=== PATIENT | female | born 1945 | race Hispanic/Latino ===

== ENCOUNTER 2017-05-15 05:51 | Observation (INO) | payer MEDICARE ==
--- NOTE | 2017-05-13 15:14 | Diagnostic Imaging Report ---
EXAMINATION: CHEST 2 VIEWS INDICATION: \S\PRE-OP VAG HYST \S\[id number] \S\1445 COMPARISON: None FINDINGS: PA and lateral views TUBES and LINES: None. LUNGS: Lungs are well inflated. Lungs are clear. There is no evidence of pneumonia or pulmonary edema. PLEURA: No pleural effusion or pneumothorax. HEART AND MEDIASTINUM: The cardiomediastinal silhouette is unremarkable. BONES AND SOFT TISSUES: No acute osseous lesion. Rightward convex curvature of the thoracic spine. Soft tissues are unremarkable. UPPER ABDOMEN: No free air under the diaphragm. Cholecystectomy clips. IMPRESSION: No acute thoracic abnormality. Signed by: DR. Jeff Hammond MD on 05/13/2017 3:11 PM
[2017-05-13 15:30] LABS: BASOPHILS # (AUTO) 0.1 (0.0-0.1); BASOPHILS % 0.8 % (0.0-1.0); EOSINOPHILS # (AUTO) 0.2 (0.0-0.4); EOSINOPHILS % 3.8 % (0.0-6.0); HEMATOCRIT 37.5 % (34.2-44.1); HEMOGLOBIN 12.2 g/dL (12.0-16.0); LYMPHOCYTES # (AUTO) 1.1 (1.0-3.2); MEAN CORPUSCULAR HEMOGLOBIN 27.7 pg (28-32); MEAN CORPUSCULAR HGB CONC 32.5 g/dL (31-35); MONOCYTES # (AUTO) 0.6 (0.2-0.8); MONOCYTES % 9.5 % (4.4-11.3); NEUTROPHILS # (AUTO) 4.3 (2.1-6.9); NEUTROPHILS % 67.6 % (38.7-80.0); PLATELET COUNT 151 x10e3/uL (140-360); RED BLOOD COUNT 4.41 x10e6/uL (3.6-5.1); RED CELL DISTRIBUTION WIDTH 13.5 % (11.7-14.4)
[2017-05-13 16:00] LABS: ANION GAP 9.6 mmol/L (8-16); CALCIUM 9.2 mg/dL (8.4-10.2); CREATININE, SERUM 1.15 mg/dL (0.57-1.11); POTASSIUM 3.6 mmol/L (3.5-5.1)
[~2017-05-15] VITALS: Ht 162.6 cm; Wt 69.4 kg
[~2017-05-15 05:51] MED LIST: AMIODARONE HCL200 MG PO; CALCIUM CARBON500 MG PO; CIPRO500 MG PO; CIPROFLOXACIN250 MG PO; DORZOLAMIDE HCL10 ML OU; LATANOPROST2.5 ML OU; LEVAQUIN250 MG PO; METOPROLOL SUCC25 MG PO; POTASSIUM CHLO10 ME1 PO; VITAMIN D31000 UNI2 PO; XARELTO10 MG PO; XARELTO20 MG PO; ZOCOR20 MG PO; [UNRECOGNIZED DRUG - OTHER]; potassium citrate
[2017-05-15 06:21] LABS: ALBUMIN 3.9 g/dL (3.5-5.0); ALBUMIN/GLOBULIN RATIO 1.3 (0.8-2.0)
[2017-05-15] MEDS ORDERED: CEFAZOLIN SOD 2 GM/D5W 50ML 0 ML IV ONE (06:30)
[2017-05-15] MEDS ORDERED: CLINDAMYCIN 300MG 50 ML IV ONE (06:30)
[2017-05-15] MEDS ORDERED: CEFAZOLIN SOD 2 GM/D5W 50ML 50 ML IV ONE (06:35)
[2017-05-15] MEDS ORDERED: BUPIVACAINE HCL 0.5% INJ 30 ML VIAL INJ ONE (06:50)
[2017-05-15] MEDS ORDERED: BUPIVACAINE 0.25% 30ML SDV INJ ONE (06:50)
[2017-05-15] MEDS ORDERED: METHYLENE BLUE 1% INJ 10 ML VIAL INJ ONE (06:50)
[2017-05-15] MEDS ORDERED: BACITRACIN 50,000 UNIT VIAL ONE (06:50)
[2017-05-15] MEDS: GENTAMICIN 80MG/NS 100 ML 200 ML IV ONE (06:58)
[2017-05-15] MEDS: CEFOXITIN 1GM/ DEXTROSE 50ML 100 ML IV ONE (06:58)
[2017-05-15] MEDS ORDERED: TYLENOL (07:07)
[2017-05-15] MEDS ORDERED: IOPAMIDOL 610MG/1ML 300 MG/ML VIAL IV ONE (07:24)
[2017-05-15] MEDS ORDERED: LIDOCAINE 1% W/EPINEPHRINE 20 ML VIAL ONE (07:56)
[2017-05-15] MEDS ORDERED: SIMETHICONE 80 MG CHEW PO PRN (11:00)
[2017-05-15] MEDS ORDERED: PROMETHAZINE HCL (IM) 25 MG/ML VIAL IV PRN (11:00)
[2017-05-15] MEDS ORDERED: METOCLOPRAMIDE HCL 10 MG/2ML VIAL ONE (11:14)
[2017-05-15] MEDS ORDERED: PROMETHAZINE 12.5MG/ NACL 0.9% 50 ML IV PRN (11:30)
--- NOTE | 2017-05-15 11:43 | Diagnostic Imaging Report ---
PROCEDURE:X-RAY ABDOMEN - KUB COMPARISON:[facility], CT, CT ABDOMEN/PELVIS WO, 02/04/2017, 16:55. INDICATIONS:POST OPERATIVE DRAINAGE FILM FINDINGS: There is a non-obstructed bowel-gas pattern. Contrast is noted in bilateral renal collecting system/pelvis and urinary bladder. Questionable dilation of the right upper calyx, which is similar in appearance to prior CT dated 02/04/2017. Ill-defined radiopaque densities projecting in the lateral inferior aspect of the left renal shadow likely represent the previously visualized calcifications associated to lobulated cyst on prior CT. 3 mm round radiopaque density projecting in the right sacrum may represent the previously visualized distal right ureteral calculus. No other radiopaque densities project over the expected course of ureters. Stable pelvic phleboliths. No acute bony abnormalities. Degenerative changes in the lower lumbosacral spine. CONCLUSION: 1. 3 mm radiopaque density projecting in the right sacrum may represent the previously visualized distal right ureteral calculus. 2. Contrast in bilateral renal collecting systems/pelvis and urinary bladder. Questionable dilation of the right upper calyx which is similar in appearance to CT dated 02/04/2017. 3. Radiopaque densities projecting in the lateral inferior aspect of the left renal shadow likely correspond to previously. Visualized calcifications associated to lobulated cyst on CT. Patrick Ji M.D. Dictated by: Patrick Ji M.D. on 05/15/2017 at 11:52 Electronically approved by: Patrick Ji M.D. on 05/15/2017 at 11:52
[2017-05-15] MEDS: ONDANSETRON HCL INJ 2 MG/ML VIAL IV PRN (12:57)
[2017-05-15] MEDS: MORPHINE SULFATE 2 MG/ML SYR IV PRN ×2 (12:58→19:21)
[2017-05-15 14:02] VITALS: BP 122/56
--- NOTE | 2017-05-15 15:42 | Operative Report ---
DATE OF PROCEDURE: May 15, 2017 CAR BODY INSPECTOR: Korina Gary, licensed rn surgical PREOPERATIVE DIAGNOSIS: Uterovaginal prolapse. POSTOPERATIVE DIAGNOSIS: Uterovaginal prolapse. PROCEDURE PERFORMED: Transvaginal hysterectomy. ANESTHESIA: General. ESTIMATED BLOOD LOSS: 100 mL. COMPLICATIONS: None. FINDINGS: A grade 3 uterine prolapse and cystocele. INDICATIONS: The patient is a 72-year-old, 3, para 3, with pelvic organ prolapse desiring definitive surgical management. PROCEDURE NOTE: The risks, benefits, indications, and alternatives of the procedure were reviewed with the patient, and informed consent was obtained. The patient was taken to the OR where general anesthesia was obtained. She was placed in the dorsal lithotomy position in Timothy stirrups, and prepped and draped in the typical sterile fashion. A time out was done. A weighted speculum was placed in the vagina, and the cervix was grasped with 2 single-tooth tenaculum. A solution of Marcaine with epinephrine was injected circumferentially around the cervix. The cervix was circumcised, and the bladder was dissected off with sharp dissection. The posterior cul-de-sac was sharply entered, and a long weighted gooseneck retractor was placed into the cul-de-sac in replacement of the standard weighted speculum. The right uterosacral ligament was then identified, clamped with a Zeppelin clamp, divided and suture ligated with 0 Vicryl. In a like fashion, the left uterosacral ligament was clamped, divided and suture ligated. The left cardinal ligament and uterine vessels were then identified, sequentially clamped, coagulated, and cut with the LigaSure device. This was followed by sequential clamping, coagulation and cutting of the cardinal ligaments and uterine vessels on the right side with the LigaSure device. The anterior cul-de-sac was sharply dissected until the vesicouterine peritoneal reflection was identified. This was entered sharply. The right utero-ovarian ligament and fallopian tube were clamped with the curved Zeppelin clamp, divided and suture ligated. This was again performed on the contralateral side. The uterus and cervix were then removed through the vagina and sent for pathology. Ovaries and tubes were visualized and were normal bilaterally. However, the left fallopian tube at the distal end was not hemostatic. The LigaSure device was used to remove the distal portion of the left fallopian tube, which was also sent for pathology. All hysterectomy pedicles were then inspected and noted to be hemostatic. The vaginal cuff was closed with 0 Vicryl in a continuous fashion. The vaginal cuff was inspected and found to be hemostatic. The procedure was then handed off to Dr. Rashard Arias, who performed pelvic prolapse repair. Please see Dr. Arias's note for remainder of the procedure. Job#: [id number] RI
[2017-05-15 15:51] LABS: BASOPHILS % 0.1 % (0.0-1.0); HEMATOCRIT 37.1 % (34.2-44.1); HEMOGLOBIN 12.2 g/dL (12.0-16.0); LYMPHOCYTES # (AUTO) 0.3 (1.0-3.2); LYMPHOCYTES % 3.5 % (18.0-39.1); MEAN CORPUSCULAR HEMOGLOBIN 28.1 pg (28-32); MEAN CORPUSCULAR HGB CONC 32.9 g/dL (31-35); MEAN CORPUSCULAR VOLUME 85.5 fL (81-99); MONOCYTES # (AUTO) 0.3 (0.2-0.8); MONOCYTES % 2.9 % (4.4-11.3); NEUTROPHILS % 93.2 % (38.7-80.0); PLATELET COUNT 126 x10e3/uL (140-360); RED BLOOD COUNT 4.34 x10e6/uL (3.6-5.1); RED CELL DISTRIBUTION WIDTH 13.4 % (11.7-14.4)
[2017-05-15] MEDS: CEFOXITIN 2GM/ D5W 50ML 50 ML IV SCH ×2 (16:01→21:55)
[2017-05-15 16:08] LABS: ANION GAP 11.1 mmol/L (8-16); CALCIUM 8.7 mg/dL (8.4-10.2); CREATININE, SERUM 0.99 mg/dL (0.57-1.11); POTASSIUM 4.1 mmol/L (3.5-5.1)
[2017-05-15 17:01] VITALS: BP 119/58
[2017-05-15] MEDS ORDERED: DEXAMETHASONE SOD PHOS INJ 4 MG/ML VIAL ONE (18:48)
[2017-05-15] MEDS ORDERED: ONDANSETRON HCL INJ 2 MG/ML VIAL ONE (18:48)
[2017-05-15] MEDS ORDERED: LIDOCAINE HCL 2% LOCAL INJ 5 ML SDV VIAL INJ ONE (18:48)
[2017-05-15] MEDS ORDERED: SEVOFLURANE INHAL SOLN 250 ML PEN BTL ONE (18:48)
[2017-05-15] MEDS ORDERED: ACETAMINOPHEN 1000 MG/100 ML IV ONE (18:48)
[2017-05-15] MEDS ORDERED: ROCURONIUM BROMIDE 10 MG/ML 5ML VIAL ONE (18:48)
[2017-05-15] MEDS ORDERED: PROPOFOL IV EMULSION 10 MG/ML 20 ML VIAL ONE (18:48)
[2017-05-15] MEDS: SODIUM CHLORIDE 0.45% 1,000 ML IV SCH ×2 (18:53→22:00)
[2017-05-15] MEDS ORDERED: FENTANYL CITRATE/PF 100MCG/2 ML INJ ONE (19:02)
[2017-05-15] MEDS ORDERED: MIDAZOLAM HCL 2 MG/2 ML VIAL ONE (19:02)
[2017-05-15 20:00] VITALS: BP 93/43
[2017-05-16] VITALS (7 sets, daily range): BP systolic 113–136; BP diastolic 57–68
[2017-05-16] MEDS: HYDROCODONE/APAP 5MG-325MG TAB PO PRN (01:04)
[2017-05-16] MEDS: SODIUM CHLORIDE 0.45% 1,000 ML IV SCH ×3 (02:53→20:12)
[2017-05-16] MEDS: ONDANSETRON HCL INJ 2 MG/ML VIAL IV PRN (04:06)
[2017-05-16] MEDS: CEFOXITIN 2GM/ D5W 50ML 50 ML IV SCH ×3 (05:54→21:40)
[2017-05-16 06:22] LABS: BASOPHILS % 0.3 % (0.0-1.0); EOSINOPHILS % 0.5 % (0.0-6.0); HEMATOCRIT 34.5 % (34.2-44.1); LYMPHOCYTES # (AUTO) 0.3 (1.0-3.2); MEAN CORPUSCULAR HEMOGLOBIN 27.4 pg (28-32); MEAN CORPUSCULAR HGB CONC 31.9 g/dL (31-35); MEAN CORPUSCULAR VOLUME 85.8 fL (81-99); MONOCYTES # (AUTO) 0.8 (0.2-0.8); MONOCYTES % 10.7 % (4.4-11.3); NEUTROPHILS # (AUTO) 6.5 (2.1-6.9); NEUTROPHILS % 84.1 % (38.7-80.0); PLATELET COUNT 124 x10e3/uL (140-360); RED BLOOD COUNT 4.02 x10e6/uL (3.6-5.1); RED CELL DISTRIBUTION WIDTH 13.4 % (11.7-14.4)
[2017-05-16 06:44] LABS: CALCIUM 8.4 mg/dL (8.4-10.2); CREATININE, SERUM 1.07 mg/dL (0.57-1.11)
[2017-05-16] MEDS: MORPHINE SULFATE 2 MG/ML SYR IV PRN (11:30)
[2017-05-16] MEDS: ACETAMINOPHEN 325 MG TAB PO PRN (21:40)
[2017-05-17] VITALS (7 sets, daily range): BP systolic 104–123; BP diastolic 55–59
[2017-05-17] MEDS: SODIUM CHLORIDE 0.45% 1,000 ML IV SCH ×4 (02:53→21:29)
[2017-05-17] MEDS: ACETAMINOPHEN 325 MG TAB PO PRN ×3 (05:10→21:30)
[2017-05-17] MEDS: CEFOXITIN 2GM/ D5W 50ML 50 ML IV SCH ×3 (05:50→21:29)
[2017-05-17] MEDS: DOCUSATE SODIUM 100 MG CAP PO PRN (12:35)
[2017-05-18] VITALS (7 sets, daily range): BP systolic 102–149; BP diastolic 50–66
[2017-05-18] MEDS: CEFOXITIN 2GM/ D5W 50ML 50 ML IV SCH ×2 (05:16→13:14)
--- NOTE | 2017-05-18 08:54 | Diagnostic Imaging Report ---
PROCEDURE: X-RAY CHEST, TWO VIEWS COMPARISON: 05/13/2017. INDICATIONS: PNEUMONIA FINDINGS: The lungs remain well-inflated. Minimal linear opacity in the left lung base is unchanged compatible with subsegmental atelectasis. No consolidation, pleural effusion, or pneumothorax. Stable cardiomediastinal contour with scoliotic curvature of the thoracic spine. No pulmonary edema. No acute osseous abnormality. Surgical clips project over the right upper quadrant of the abdomen compatible with prior cholecystectomy. CONCLUSION: No acute cardiopulmonary abnormality. Dictated by: Дмитрий Mendez M.D. on 05/18/2017 at 9:03 Electronically approved by: Дмитрий Mendez M.D. on 05/18/2017 at 9:03
[2017-05-18] MEDS: ACETAMINOPHEN 325 MG TAB PO PRN (09:11)
[2017-05-18] MEDS: SODIUM CHLORIDE 0.45% 1,000 ML IV SCH ×2 (10:53→15:45)
[2017-05-18] MEDS: HYDROCODONE/APAP 5MG-325MG TAB PO PRN ×2 (13:54→18:23)
[2017-05-18] MEDS ORDERED: TYLENOL WITH C1 EACH PO (17:28)
[2017-05-18] MEDS ORDERED: LEVAQUIN250 MG PO (17:28)
[2017-05-18] MEDS: DOCUSATE SODIUM 100 MG CAP PO PRN (18:23)
[2017-06-19] MEDS ORDERED: QUESTRAN PACKET4 GM PO (06:59)
[2017-06-19] MEDS ORDERED: FLAGYL500 MG PO (06:59)
== END 2017-05-18 19:48 | disposition home or self-care (01) ==
LOC: OR 05:51 → MED/SURG 11:23
PROVIDERS: ADMIT Obstetrics & Gynecology Obstetrics; ATTEND Obstetrics & Gynecology Obstetrics
DX: N81.3 Complete uterovaginal prolapse (principal); I10 Essential (primary) hypertension; I48.91 Unspecified atrial fibrillation; H40.9 Unspecified glaucoma; Z01.810 Encounter for preprocedural cardiovascular examination; Z01.812 Encounter for preprocedural laboratory examination; Z01.818 Encounter for other preprocedural examination
CPT/HCPCS: 36415 ×3; 58262; 71046 ×2; 74018; 74420; 80048 ×2; 80053; 85025 ×3; 88307; 88342; 93005; 96361; C1762; G0378 ×4; J0694 ×4; J1100; J1580; J2001; J2250; J2270 ×2; J2405 ×2; J2765; Q9967

== ENCOUNTER 2017-05-27 11:07 | Inpatient (IN) | payer MEDICARE ==
[~2017-05-27] VITALS: Ht 162.6 cm; Wt 73.5 kg
[~2017-05-27 11:07] MED LIST changes: +TYLENOL; +TYLENOL WITH C1 EACH PO
--- OUTSIDE RECORDS SUMMARY | 2017-05-27 11:10 | XMS REPORT | Clinical Summary ---
Author Author [facility]ATH[facility]INE [facility] Address Unknown Phone Unavailable Care Team Providers Care [place] Name Role Phone PCP Unavailable Allergies No Known Allergies Current Medications Prescription Sig. Disp. Refills Start End Date Status Date amoxicillin-clavulanate Take 1 tablet by mouth 20 tablet 0 05/17/19 05/27/19 (AUGMENTIN) 875-125 mg every 12 (twelve) hours 17 17 per tablet for 10 days. Active Problems Not on file Social History Tobacco Use Types Packs/Day Years Used Date Never Smoker Alcohol Use Drinks/Week oz/Week Comments No Sex Assigned at Date Recorded Not on file Last Filed Vital Signs Not on file Plan of Treatment Not on file Results Not on fileafter 05/26/2016
--- OUTSIDE RECORDS SUMMARY | 2017-05-27 11:10 | XMS REPORT ---
Author Author [facility] Address Unknown Phone Unavailable Care Team Providers Care 3D Specialist Name Role Phone ANA OHARA Unavailable Unavailable KALIN LR Unavailable Unavailable Problems This patient has no known problems. Allergies, Adverse Reactions, Alerts This patient has no known allergies or adverse reactions. Medications This patient has no known medications. Results Test Description Test Time Test Comments Text Results Atomic Results Result Comments CHEST 2 VIEWS [place] [address] Patient Name: RIVAS CASANOVA MR #: [id number] : 1945 Age/Sex: 72/F Req #: [id number] Adm Physician: ANA OHARA MD Ordered by: ANA OHARA MD Report #: [id number] Location: MED/SURG Room/Bed: [facility] ____ Procedure: [id number] DX/CHEST 2 VIEWS Exam Date: 05/18/17 Exam Time: 0830 REPORT STATUS: Signed PROCEDURE: X-RAY CHEST, TWO VIEWS COMPARISON: 05/13/2017. INDICATIONS: PNEUMONIA FINDINGS: The lungs remain well-inflated. Minimal linear opacity in the left lung base is unchanged compatible with subsegmental atelectasis. No consolidation, pleural effusion, or pneumothorax. Stable cardiomediastinal contour with scoliotic curvature of the thoracic spine. No pulmonary edema. No acute osseous abnormality. Surgical clips project over the right upper quadrant of the abdomen compatible with prior cholecystectomy. CONCLUSION: No acute cardiopulmonary abnormality. Dictated by: Mike Kidd M.D. on 05/18/2017 at 9:03 Electronically approved by: Mike Kidd M.D. on 05/18/2017 at 9:03 Dictated By: MIKE KIDD MD 2 Transcribed By: ANA on 05/18/17902 COPY TO: ANA OHARA MD ABDOMEN-1VIEW (KUB) [place] [address] Patient Name: RIVAS CASANOVA MR #: [id number] : 1945 Age/Sex: 72/F Req #: [id number] Adm Physician: ANA OHARA MD Ordered by: NANDO BRANDON MD Report #: [id number] Location: MED/SURG Room/Bed: [facility] ____ Procedure: [id number] DX/ABDOMEN-1VIEW (KUB) Exam Date: 05/15/17 Exam Time: 1100 REPORT STATUS: Signed PROCEDURE: X-RAY ABDOMEN - KUB COMPARISON: [facility], CT, CT ABDOMEN/PELVIS WO, 02/04/2017, 16:55. INDICATIONS: POST OPERATIVE DRAINAGE FILM FINDINGS: There is a non-obstructed bowel-gas pattern. Contrast is noted in bilateral renal collecting system/pelvis and urinary bladder. Questionable dilation of the right upper calyx, which is similar in appearance to prior CT dated 02/04/2017. Ill-defined radiopaque densities projecting in the lateral inferior aspect of the left renal shadow likely represent the previously visualized calcifications associated to lobulated cyst on prior CT. 3 mm round radiopaque density projecting in the right sacrum may represent the previously visualized distal right ureteral calculus. No other radiopaque densities project over the expected course of ureters. Stable pelvic phleboliths. No acute bony abnormalities. Degenerative changes in the lower lumbosacral spine. CONCLUSION: 1. 3 mm radiopaque density projecting in the right sacrum may represent the previously visualized distal right ureteral calculus. 2. Contrast in bilateral renal collecting systems/pelvis and urinary bladder. Questionable dilation of the right upper calyx which is similar in appearance to CT dated 02/04/2017. 3. Radiopaque densities projecting in the lateral inferior aspect of the left renal shadow likely correspond to previously. Visualized calcifications associated to lobulated cyst on CT. Sujata Ji M.D. Dictated by: Sujata Ji M.D. on 05/15/2017 at 11:52 Electronically approved by: Sujata Ji M.D. on 05/15/2017 at 11:52 Dictated By: SUJATA JI MD 1152 Transcribed By: ANA on 05/15/17 1152 COPY TO: NANDO BRANDON MD CHEST 2 VIEWS [place] [address] Patient Name: RIVAS CASANOVA MR #: [id number] : 1945 Age/Sex: 72/F Req #: [id number] Adm Physician: Ordered by: ANA OHARA MD Report #: [id number] Location: OR Room/Bed: Procedure: [id number] DX/CHEST 2 VIEWS Exam Date: 05/13/17 Exam Time: 1445 REPORT STATUS: Signed EXAMINATION: CHEST 2 VIEWS INDICATION: COMPARISON: None FINDINGS: PA and lateral views TUBES and LINES: None. LUNGS: Lungs are well inflated. Lungs are clear. There is no evidence of pneumonia or pulmonary edema. PLEURA: No pleural effusion or pneumothorax. HEART AND MEDIASTINUM: The cardiomediastinal silhouette is unremarkable. BONES AND SOFT TISSUES: No acute osseous lesion. Rightward convex curvature of the thoracic spine. Soft tissues are unremarkable. UPPER ABDOMEN: No free air under the diaphragm. Cholecystectomy clips. IMPRESSION: No acute thoracic abnormality. Signed by: DR. Jeff Luz MD on 05/13/2017 3: 11 PM Dictated By: JEFF LUZ MD 10 Transcribed By: KIRK on 05/13/171510 COPY TO : ANA HOARA MD CT ABDOMEN/PELVIS WO [place] [address] Patient Name: RIVAS CASANOVA MR #: [id number] : 1945 Age/Sex: 71/F Req #: [id number] Adm Physician: Ordered by: LEISA TAYLOR DEHYDRATING PRESS OPERATOR Report #: [id number] Location: ER Room/Bed: Procedure: [id number] CT/CT ABDOMEN/PELVIS WO Exam Date: 02/04/17 Exam Time: 1655 REPORT STATUS: Signed PROCEDURE: CT ABDOMEN AND PELVIS WITHOUT CONTRAST TECHNIQUE: The abdomen and pelvis were scanned utilizing a multidetector helical scanner from the diaphragm to the lesser trochanter after the oral administration of water. No IV contrast was administered per protocol. Coronal and sagittal multiplanar reformations were obtained. COMPARISON: [facility], CT, CT ABDOMEN/ PELVIS WO, 10/22/2014, 23:14. INDICATIONS: LEFT FLANK PAIN, STONE FINDINGS: ABSENCE OF INTRAVENOUS CONTRAST DECREASES SENSITIVITY FOR DETECTION OF FOCAL LESIONS AND VASCULAR PATHOLOGY. LOWER THORAX: Stable linear scarring in the lingula and medial right middle lobe. Stable mild cardiomegaly. Atherosclerotic calcification of a aortic valves, coronary arteries. HEPATOBILIARY: No focal hepatic lesions. No biliary ductal dilatation. Cholecystectomy clips. SPLEEN: No splenomegaly. PANCREAS: No focal masses or ductal dilatation. ADRENALS: No adrenal nodules. KIDNEYS/URETERS: Stable 4-5 mm radiopaque density adjacent to the mid to distal right ureter (series 3, image 118), felt to represent a phlebolith. 3-4 mm nonobstructing calculus in the inferior pole of the left kidney (series 3, image 79), which is relatively stable. No definite right renal or any ureteral calculi are identified. Improved mild right hydronephrosis. Stable mild left pelvocaliectasis/hydronephrosis. No interval change in dystrophic calcifications in the peripheral aspect of the left kidney near the interpolar region, with associated scarring. Stable marked left scarring in left cortical thinning. Stable simple cysts in the inferior pole. PELVIC ORGANS/BLADDER: Bladder is decompressed and grossly unremarkable. No bladder calculi. Uterus is unremarkable. No adnexal masses. PERITONEUM / RETROPERITONEUM: No free air or fluid. LYMPH NODES: No adenopathy. VESSELS: Atherosclerotic calcification of the abdominal aorta GI TRACT: No bowel dilation or evidence of obstruction. BONES AND SOFT TISSUES: No acute bony abnormalities. Multilevel degenerative disc disease in the lumbosacral spine, with mild levoscoliosis. IMPRESSION: 1. no ureteral calculi. 2. Stable 3-4 mm nonobstructing calculus in the inferior pole of the left kidney. 3. Improved mild right hydronephrosis. Stable mild left pelvocaliectasis/hydronephrosis. Sujata Ji M.D. Dictated by: Sujata Ji M.D. on 02/04/2017 at 17:54 Electronically approved by: Sujata Ji M.D. on 02/04/2017 at 17:54 Dictated By: SUJATA JI MD 53 Transcribed By: ANA on 02/04/171753 COPY TO: LEISA TAYLOR DEHYDRATING PRESS OPERATOR CHEST 2 VIEWS [facility] [address] [place] [address] Patient Name: RIVAS CASANOVA MR #: [id number] : 1945 Age/Sex: 71/F Req #: [id number] Adm Physician: Ordered by: LEISA TAYLOR NP Report #: [id number] Location: ER Room/Bed: Procedure: [id number] DX/CHEST 2 VIEWS Exam Date: 02/04/17 Exam Time: 1500 REPORT STATUS: Signed PROCEDURE: Frontal and lateral views of the chest. COMPARISON: [facility], DX, CHEST SINGLE (PORTABLE ), 06/11/2016, 11:17. INDICATIONS: FEVER, CHILLS FINDINGS: Lines/tubes: None. Lungs: The lungs are well inflated and clear. There is no evidence of pneumonia or pulmonary edema. Pleura: There is no pleural effusion or pneumothorax. Heart and mediastinum: The heart and the mediastinum are normal. Bones: No acute bony abnormality. Stable rightward curvature of the thoracic and upper lumbar spine IMPRESSION: 1. No acute cardiopulmonary abnormalities. Sujata Ji M.D. Dictated by: Sujata Ji M.D. on 02/04/2017 at 15:20 Electronically approved by: Sujata Ji M.D. on 02/04/2017 at 15:20 Dictated By: SUJATA JI MD 1520 Transcribed By: ANA on 02/04/17 1520 COPY TO: LEISA TAYLOR DEHYDRATING PRESS OPERATOR
[2017-05-27] MEDS ORDERED: SODIUM CHLORIDE 0.9% 1000ML 1,000 ML IV STA (11:17)
[2017-05-27] MEDS ORDERED: ONDANSETRON HCL INJ 2 MG/ML VIAL IV STA (11:17)
[2017-05-27] MEDS ORDERED: ACETAMINOPHEN 1000 MG/100 ML IV STA (11:17)
--- NOTE | 2017-05-27 12:06 | Diagnostic Imaging Report ---
PROCEDURE: Frontal and lateral views of the chest. COMPARISON: Chest radiograph 05/18/2017. INDICATIONS: FEVER, VOMITING FINDINGS: Lines/tubes: None. Lungs: The lungs are well inflated and clear. There is no evidence of pneumonia or pulmonary edema. Pleura: There is no pleural effusion or pneumothorax. Heart and mediastinum: The heart and the mediastinum are normal. Bones: No acute bony abnormality. Stable convex curvature of the thoracic spine to the right. Calcific densities projecting superior to the humeral heads likely reflect rotator cuff calcific tendinosis. Upper abdomen: No free air under the diaphragm. Surgical clips project over the right upper quadrant reflecting prior cholecystectomy. IMPRESSION: No acute cardiopulmonary disease. Dictated by: Jeff Hammond M.D. on 05/27/2017 at 12:15 Electronically approved by: Jeff Hammond M.D. on 05/27/2017 at 12:15
[2017-05-27 12:34] LABS: BASOPHILS # (AUTO) 0.1 (0.0-0.1); BASOPHILS % 0.2 % (0.0-1.0); HEMOGLOBIN 11.9 g/dL (12.0-16.0); LYMPHOCYTES # (AUTO) 0.4 (1.0-3.2); MEAN CORPUSCULAR HEMOGLOBIN 27.4 pg (28-32); MEAN CORPUSCULAR HGB CONC 32.2 g/dL (31-35); MEAN CORPUSCULAR VOLUME 85.3 fL (81-99); MONOCYTES # (AUTO) 1.3 (0.2-0.8); MONOCYTES % 5.7 % (4.4-11.3); NEUTROPHILS # (AUTO) 19.8 (2.1-6.9); NEUTROPHILS % 91.1 % (38.7-80.0); PLATELET COUNT 230 x10e3/uL (140-360); RED BLOOD COUNT 4.34 x10e6/uL (3.6-5.1); RED CELL DISTRIBUTION WIDTH 13.2 % (11.7-14.4)
[2017-05-27 12:51] LABS: INR 1.12; PARTIAL THROMBOPLASTIN TIME 33.6 seconds (23.8-35.5)
[2017-05-27 12:55] LABS: BILIRUBIN,URINE NEGATIVE (NEGATIVE); CLARITY,URINE CLEAR (CLEAR); COLOR,URINE YELLOW (YELLOW); KETONES,URINE TRACE (NEGATIVE); LEUKOCYTE ESTERASE ,URINE NEGATIVE (NEGATIVE); NITRITE,URINE NEGATIVE (NEGATIVE); PROTEIN,URINE DIPSTICK NEGATIVE (NEGATIVE); URINE UROBILINOGEN 0.2 mg/dL (0.2 - 1)
[2017-05-27 12:58] LABS: ALBUMIN 3.5 g/dL (3.5-5.0); CALCIUM 8.7 mg/dL (8.4-10.2); CREATININE, SERUM 1.13 mg/dL (0.57-1.11)
[2017-05-27] MEDS ORDERED: DIATRIZOATE MEGL/DIATRIZOA SOD 30 ML BTL PO ONE (13:02)
[2017-05-27 13:05] LABS: CREATINE KINASE MB 0.7 ng/mL (0.00-5.00)
[2017-05-27 13:07] LABS: BACTERIA,URINE MODERATE /HPF
[2017-05-27 13:08] LABS: EPITHELIAL CELLS,URINE FEW /LPF; MUCUS,URINE FEW (RARE); TRANSITIONAL EPI CELLS,URINE FEW
--- NOTE | 2017-05-27 14:33 | Diagnostic Imaging Report ---
PROCEDURE: CT ABDOMEN AND PELVIS WITH CONTRAST TECHNIQUE: The abdomen and pelvis were scanned utilizing a multidetector helical scanner from the diaphragm to the lesser trochanter after the IV administration of 100 cc of Isovue 370 and the oral administration of Gastroview. Coronal and sagittal multiplanar reformations were obtained. COMPARISON: Abdominal CT 02/04/2017 INDICATIONS: ABDOMINAL PAIN, VOMITING FINDINGS: LOWER THORAX: Stable medial right middle lobe linear scarring. Stable mild cardiomegaly. HEPATOBILIARY: Diffuse hypoattenuation of the liver compatible with steatosis. No focal hepatic lesions. No biliary ductal dilatation. Cholecystectomy clips. SPLEEN: No splenomegaly. PANCREAS: No ductal dilatation. A low attenuating 0.7 cm lesion in the pancreatic body (axial image 22, sagittal image 65) is not well seen on previous non-contrast CT. ADRENALS: No adrenal nodules. KIDNEYS/URETERS: Stable bilateral mild hydronephrosis. Stable interpolar and inferior pole 3-4 mm nonobstructing calculi in the mid and lower pole Of the left kidney. No definite right renal or any ureteral calculi are identified. A lobulated 2.4 cm lesion in the interpolar region of the left kidney (coronal image 53) contains calcifications and is of indeterminate density (portions measuring up to 32 HU). The contours appear similar to 04/01/2014 although direct comparison is limited secondary to previous non-contrast study. A oval 2.9 cm lesion in the superior pole of the right kidney is indeterminate (series 2 image 28) measuring 56 HU. Additional hypodensities in both kidneys are too small to characterize. Stable marked left scarring in left cortical thinning. PELVIC ORGANS/BLADDER: Bladder is unremarkable. No bladder calculi. Uterus is not visualized. No adnexal masses. PERITONEUM / RETROPERITONEUM: No free air or fluid. LYMPH NODES: No adenopathy. VESSELS: Atherosclerotic calcification of the abdominal aorta. 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 GI TRACT: No bowel dilation or evidence of obstruction. 1.3 cm duodenal diverticulum along the third segment. Minimal diffuse colonic wall thickening and fluid within the colon. Appendix is normal. BONES AND SOFT TISSUES: No acute bony abnormalities. Multilevel degenerative disc disease in the lumbosacral spine, with mild levoscoliosis. A supraumbilical hernia contains two knuckles of small bowel without evidence of strangulation or obstruction. Hernia sac measures approximately 6.3 x 3.5 x 9 cm (SI x AP x TV) with abdominal wall defect measuring approximately 3.3 x 4.7 cm (SI x TV). IMPRESSION: 1. Diffuse minimal colonic wall thickening and fluid within the colon may reflect colitis/diarrhea. 2. Indeterminate renal lesions. Recommend further evaluation with abdominal MRI without and with contrast. 3. Stable left nephrolithiasis. Stable mild bilateral hydronephrosis. 4. Supraumbilical hernia contains small bowel without evidence of strangulation or obstruction. 5. Low attenuating lesion in the pancreas may represent an IPMN. This can be evaluated at the time of MRI (with addition of MRCP sequences). Dictated by: Jeff Hammond M.D. on 05/27/2017 at 14:42 Electronically approved by: Jeff Hammond M.D. on 05/27/2017 at 14:42
[2017-05-27] MEDS ORDERED: METRONIDAZOLE 500MG/NS 100ML 100 ML IV STA (14:38)
[2017-05-27] MEDS ORDERED: CIPROFLOXACIN 400 MG/D5W 200ML 200 ML IV STA (14:38)
[2017-05-27] MEDS ORDERED: MORPHINE SULFATE 2 MG/ML SYR IV PRN (14:45)
[2017-05-27] MEDS ORDERED: ACETAMINOPHEN 325 MG TAB PO PRN (14:45)
--- OUTSIDE RECORDS SUMMARY | 2017-05-27 17:21 | XMS REPORT | Clinical Summary ---
Author Author KATHERINE [facility] Address Unknown Phone Unavailable Care Team Providers Care Clinical Ob Name Role Phone PCP Unavailable Allergies No [...]
[2017-05-27] MEDS ORDERED: IOPAMIDOL 370 MG/ML 200 ML INFUS..BTL INJ ONE (18:50)
[2017-05-27] MEDS ORDERED: SODIUM CHLORIDE 0.9% 50ML 50 ML ONE (18:50)
[2017-05-27] MEDS: ONDANSETRON HCL INJ 2 MG/ML VIAL IV PRN (19:22)
[2017-05-27] MEDS ORDERED: ACETAMINOPHEN 1000 MG/100 ML 100 ML IV ONE (19:39)
[2017-05-27] MEDS ORDERED: ACETAMINOPHEN 1000 MG/100 ML IV PRN (19:45)
[2017-05-27] MEDS: SODIUM CHLORIDE 0.9% 1000ML 1,000 ML IV SCH (20:00)
[2017-05-27 20:30] VITALS: BP 108/52
[2017-05-27 21:00] VITALS: BP 108/52
[2017-05-27] MEDS: PROMETHAZINE 12.5MG/ NACL 0.9% 12.5 MG/50 ML BAG IV PRN (22:23)
[2017-05-27 22:44] VITALS: BP 108/52
[2017-05-28] VITALS (7 sets, daily range): BP systolic 92–136; BP diastolic 51–78
[2017-05-28] MEDS: METRONIDAZOLE 500MG/NS 100ML 100 ML IV SCH ×2 (03:33→14:11)
[2017-05-28] MEDS: CIPROFLOXACIN 400 MG/D5W 200ML 200 ML IV SCH ×2 (04:09→17:35)
[2017-05-28] MEDS: SODIUM CHLORIDE 0.9% 1000ML 1,000 ML IV SCH ×2 (04:10→20:47)
[2017-05-28] MEDS: PROMETHAZINE 12.5MG/ NACL 0.9% 12.5 MG/50 ML BAG IV PRN (04:16)
[2017-05-28 06:01] LABS: BASOPHILS # (AUTO) 0.1 (0.0-0.1); BASOPHILS % 0.3 % (0.0-1.0); HEMATOCRIT 38.1 % (34.2-44.1); HEMOGLOBIN 12.1 g/dL (12.0-16.0); LYMPHOCYTES # (AUTO) 0.7 (1.0-3.2); LYMPHOCYTES % 3.5 % (18.0-39.1); MEAN CORPUSCULAR HEMOGLOBIN 27.6 pg (28-32); MEAN CORPUSCULAR HGB CONC 31.8 g/dL (31-35); MEAN CORPUSCULAR VOLUME 86.8 fL (81-99); MONOCYTES # (AUTO) 1.7 (0.2-0.8); MONOCYTES % 8.3 % (4.4-11.3); NEUTROPHILS # (AUTO) 17.2 (2.1-6.9); NEUTROPHILS % 83.6 % (38.7-80.0); PLATELET COUNT 255 x10e3/uL (140-360); RED BLOOD COUNT 4.39 x10e6/uL (3.6-5.1); RED CELL DISTRIBUTION WIDTH 13.7 % (11.7-14.4)
[2017-05-28 06:24] LABS: ALBUMIN 2.9 g/dL (3.5-5.0); ALBUMIN/GLOBULIN RATIO 0.9 (0.8-2.0); ANION GAP 15.7 mmol/L (8-16); CALCIUM 8.2 mg/dL (8.4-10.2); CREATININE, SERUM 1.26 mg/dL (0.57-1.11); POTASSIUM 3.7 mmol/L (3.5-5.1)
[2017-05-28 06:43] LABS: BAND NEUTROPHILS % (MANUAL) 13 %; LYMPHOCYTES % (MANUAL) 3 % (19-48); MONOCYTES % (MANUAL) 12 % (3.4-9.0); NEUTROPHILS % (MANUAL) 72 % (40-74)
[2017-05-28 06:44] LABS: PLATELET ESTIMATE ADEQUATE; PLATELET MORPHOLOGY COMMENT NORMAL; RBC MORPHOLOGY COMMENT NORMAL
[2017-05-28] MEDS: ONDANSETRON HCL INJ 2 MG/ML VIAL IV PRN (07:12)
[2017-05-28] MEDS ORDERED: PROMETHAZINE 12.5MG/ NACL 0.9% 12.5 MG/50 ML BAG IV PRN (07:15)
--- NOTE | 2017-05-28 07:55 | History and Physical ---
ADDENDUM The patient also has chronic kidney disease, stage 3. Cardiorenal function appears at baseline. Job#: [id number] RI
[2017-05-28] MEDS: RIVAROXABAN 10 MG TABLET PO SCH (09:00)
[2017-05-28] MEDS: METOPROLOL SUCCINATE 25 MG TAB XL PO SCH ×2 (09:00→17:35)
[2017-05-28] MEDS: OYST-CAL-D 500MG TABLET PO SCH ×4 (11:12→21:00)
[2017-05-28] MEDS: AMIODARONE HCL 200 MG TAB PO SCH (11:12)
--- NOTE | 2017-05-28 11:37 | History and Physical ---
PRIMARY CARE PHYSICIAN: Dr. Harper CHIEF COMPLAINT: Nausea, vomiting, diarrhea, and fever. HISTORY OF PRESENT ILLNESS: This is a 72-year-old woman with a history of atrial fibrillation, now developing nausea and vomiting, as well as diarrhea for the past few days. She has a temperature as high as 100 at home. Therefore, she came to the hospital. Here, she was found to have acute colitis. She was admitted for further evaluation and management. Denies any real abdominal pain. Her last colonoscopy was about 5 years ago. She does not recall the physician nor the findings. PAST MEDICAL HISTORY: Hypertension, hyperlipidemia, GERD, atrial fibrillation. PAST SURGICAL HISTORY: Hysterectomy and bladder lift. ALLERGIES: PER ELECTRONIC MEDICAL RECORD. FAMILY HISTORY/SOCIAL HISTORY: Patient is . She has 3 children. No alcohol, illitis or cigarettes. MEDICATIONS: Per electronic medical records. REVIEW OF SYSTEMS: Denies any dizziness or chest pain. PHYSICAL EXAMINATION VITAL SIGNS: Have been reviewed. GENERAL: A tired-appearing woman resting in bed. HEENT: Anicteric. Pupils respond to light. No oral lesions. The patient is spitting up mucus during the exam. CARDIOVASCULAR: Normal S1 and S2. She has irregular heart rate. She has a 3/6 systolic murmur. LUNGS: Moderate breath sounds. ABDOMEN: Soft and nondistended. Mild discomfort in the midabdomen. EXTREMITIES: No edema or calf tenderness. NEUROLOGICAL: Alert and oriented times 3. Moving all extremities. SKIN: Dry. PSYCHIATRIC: Flat affect. LABS: Reviewed. MEDICATIONS: Reviewed. ASSESSMENT AND PLAN: This is a 72-year-old woman with: 1. Severe sepsis: Will continue on IV fluids, Flagyl, ciprofloxacin, and follow up cultures. 2. Urinary tract infection: Continue Cipro and follow up cultures. 3. Bilateral hydronephrosis: Appears to be chronic, stable and mild. 4. Acute colitis: Antibiotics as described above. 5. Intractable nausea and vomiting: Zofran not very effective. Will add Phenergan. 6. Atrial fibrillation: Resume home dose of amiodarone and Xarelto. 7. Hyperlipidemia: Continue statin. 8. Hypertension: Continue beta vishnu. 9. Low attenuation lesion in the pancreas/indeterminate renal lesions: Follow up imaging outpatient. 10. Prophylaxis: Will use Pepcid while the patient is on anticoagulant. 11. Disposition: Control nausea. Continue antibiotics. Follow up cultures. Job#: [id number] RI
[2017-05-28] MEDS: DORZOLAMIDE HCL (OPTH) 10 ML BOTTLE OP SCH (20:49)
[2017-05-28] MEDS: LATANOPROST(OPTH) 2.5 ML BTL OU SCH (20:50)
[2017-05-28] MEDS: SIMVASTATIN 20 MG TAB PO SCH (20:50)
[2017-05-29] VITALS (8 sets, daily range): BP systolic 94–148; BP diastolic 46–66
[2017-05-29] MEDS: METRONIDAZOLE 500MG/NS 100ML 100 ML IV SCH ×2 (02:04→15:31)
[2017-05-29] MEDS: CIPROFLOXACIN 400 MG/D5W 200ML 200 ML IV SCH ×2 (03:20→16:38)
[2017-05-29] MEDS: SODIUM CHLORIDE 0.9% 1000ML 1,000 ML IV SCH ×2 (04:39→20:55)
[2017-05-29 06:12] LABS: BASOPHILS % 0.3 % (0.0-1.0); EOSINOPHILS # (AUTO) 0.1 (0.0-0.4); EOSINOPHILS % 0.3 % (0.0-6.0); LYMPHOCYTES # (AUTO) 0.8 (1.0-3.2); LYMPHOCYTES % 5.4 % (18.0-39.1); MEAN CORPUSCULAR HEMOGLOBIN 27.5 pg (28-32); MEAN CORPUSCULAR HGB CONC 32.3 g/dL (31-35); MEAN CORPUSCULAR VOLUME 85.2 fL (81-99); MONOCYTES % 6.6 % (4.4-11.3); NEUTROPHILS % 82.7 % (38.7-80.0); PLATELET COUNT 234 x10e3/uL (140-360); RED BLOOD COUNT 3.64 x10e6/uL (3.6-5.1); RED CELL DISTRIBUTION WIDTH 13.9 % (11.7-14.4)
[2017-05-29 06:33] LABS: ANION GAP 12.3 mmol/L (8-16); CALCIUM 7.7 mg/dL (8.4-10.2); CREATININE, SERUM 1.2 mg/dL (0.57-1.11); POTASSIUM 3.3 mmol/L (3.5-5.1)
[2017-05-29] MEDS: RIVAROXABAN 10 MG TABLET PO SCH (09:00)
--- NOTE | 2017-05-29 09:09 | Progress Note ---
DATE: May 29, 2017 TIME: 6:40 a.m. OVERNIGHT: Some nausea. REVIEW OF SYSTEMS: Denies any dizziness. PHYSICAL EXAMINATION VITAL SIGNS: Reviewed. GENERAL: A tired-appearing woman resting in bed. HEENT: Anicteric. CARDIOVASCULAR: Normal S1 and S2. LUNGS: Moderate breath sounds. ABDOMEN: Soft, nontender and nondistended. EXTREMITIES: No edema or calf tenderness. NEUROLOGICAL: Alert and oriented times 3. Moving all extremities. SKIN: Dry. PSYCHIATRIC: Flat affect. LABS: Reviewed. MEDICATIONS: Reviewed. ASSESSMENT: A 72-year-old woman with: 1. Severe sepsis. 2. Urinary tract infection. 3. Bilateral hydronephrosis. 4. Acute colitis. 5. Intractable nausea and vomiting. 6. Atrial fibrillation. 7. Hyperlipidemia/hypertension. 8. Low attenuation lesion in the pancreas/indeterminate renal lesion. 9. Chronic kidney disease, stage 3. 10. C. diff positive colitis. PLAN 1. Continue IV fluids. 2. Continue antiemetics. 3. Consider Reglan. 4. Continue IV antibiotics. 5. Continue atrial fibrillation treatment with amiodarone and Xarelto. 6. Leukocytosis, improving. 7. Replace potassium. 8. C. diff testing is positive. Will use IV Flagyl. 9. Continue Xarelto. 10. Gram-negative rods in the urine. Follow up. 11. Influenza screen negative. Job#: [id number]
[2017-05-29] MEDS: DORZOLAMIDE HCL (OPTH) 10 ML BOTTLE OP SCH ×2 (09:32→16:25)
[2017-05-29] MEDS: OYST-CAL-D 500MG TABLET PO SCH ×3 (09:32→20:57)
[2017-05-29] MEDS: AMIODARONE HCL 200 MG TAB PO SCH (09:32)
[2017-05-29] MEDS: METOPROLOL SUCCINATE 25 MG TAB XL PO SCH ×3 (09:33→20:56)
[2017-05-29 09:47] LABS: BAND NEUTROPHILS % (MANUAL) 4 %; LYMPHOCYTES % (MANUAL) 8 % (19-48); METAMYELOCYTES % (MANUAL) 1 % (0-0); MONOCYTES % (MANUAL) 5 % (3.4-9.0); NEUTROPHILS % (MANUAL) 82 % (40-74); RBC MORPHOLOGY COMMENT NORMAL
[2017-05-29 09:48] LABS: ANISOCYTOSIS SLIGHT; HYPOCHROMASIA N; PLATELET ESTIMATE ADEQUATE; PLATELET MORPHOLOGY COMMENT NORMAL
[2017-05-29] MEDS: LATANOPROST(OPTH) 2.5 ML BTL OU SCH (20:55)
[2017-05-29] MEDS: SIMVASTATIN 20 MG TAB PO SCH (20:56)
[2017-05-29] MEDS ORDERED: POTASSIUM CHLORIDE 20 MEQ TAB CR PO STA (21:52)
[2017-05-30] VITALS (7 sets, daily range): BP systolic 104–150; BP diastolic 54–64
[2017-05-30] MEDS: METRONIDAZOLE 500MG/NS 100ML 100 ML IV SCH ×2 (03:13→15:00)
[2017-05-30] MEDS: CIPROFLOXACIN 400 MG/D5W 200ML 200 ML IV SCH ×2 (04:30→17:16)
[2017-05-30] MEDS: SODIUM CHLORIDE 0.9% 1000ML 1,000 ML IV SCH ×2 (09:25→22:45)
[2017-05-30] MEDS: OYST-CAL-D 500MG TABLET PO SCH ×3 (09:54→20:38)
[2017-05-30] MEDS: DORZOLAMIDE HCL (OPTH) 10 ML BOTTLE OP SCH ×2 (09:54→17:16)
[2017-05-30] MEDS: AMIODARONE HCL 200 MG TAB PO SCH (09:54)
[2017-05-30] MEDS: RIVAROXABAN 10 MG TABLET PO SCH (09:55)
[2017-05-30] MEDS: METOPROLOL SUCCINATE 25 MG TAB XL PO SCH ×2 (09:55→20:38)
--- NOTE | 2017-05-30 11:30 | Progress Note ---
DATE: May 30, 2017 TIME: 7:30 a.m. OVERNIGHT: No events. She has some diarrhea. REVIEW OF SYSTEMS: Denies any chest pain. PHYSICAL EXAMINATION VITAL SIGNS: Reviewed. GENERAL: A tired-appearing woman, resting in bed. HEENT: Anicteric. CARDIOVASCULAR: Normal S1 and S2. LUNGS: Moderate breath sounds. ABDOMEN: Soft and nontender. EXTREMITIES: No edema. SKIN: Dry. PSYCHIATRIC: Flat affect. LABS: Reviewed. MEDICATIONS: Reviewed. ASSESSMENT: A 72-year-old woman with: 1. Severe sepsis. 2. Urinary tract infection. 3. Bilateral hydronephrosis. 4. Acute colitis. 5. Intractable nausea and vomiting. 6. Atrial fibrillation. 7. Hyperlipidemia/hypertension. 8. Low attenuation lesion of the pancreas/indeterminate renal lesion. 9. Chronic kidney disease, stage 3. 10. C. diff positive colitis with diarrhea. 11. Pseudomonas urinary tract infection. PLAN 1. Continue IV Flagyl and IV antibiotics. 2. Continue antiemetics. 3. Nausea is improving. 4. Continue IV Reglan. 5. Continue amiodarone and Xarelto. 6. Influenza screening was negative. 7. She has pseudomonas urinary tract infection, which is quite sensitive. 8. Severe sepsis, present on admission. 9. Obtain labs tomorrow. Job#: [id number] SAK
[2017-05-30] MEDS: ONDANSETRON HCL INJ 2 MG/ML VIAL IV PRN (20:35)
[2017-05-30] MEDS: LATANOPROST(OPTH) 2.5 ML BTL OU SCH (20:38)
[2017-05-30] MEDS: SIMVASTATIN 20 MG TAB PO SCH (20:38)
[2017-05-31] VITALS: BP 120/57
[2017-05-31] MEDS: METRONIDAZOLE 500MG/NS 100ML 100 ML IV SCH ×2 (03:30→15:18)
[2017-05-31 04:00] VITALS: BP 140/91
[2017-05-31] MEDS: CIPROFLOXACIN 400 MG/D5W 200ML 200 ML IV SCH ×2 (04:30→16:00)
[2017-05-31 06:09] LABS: BASOPHILS # (AUTO) 0.1 (0.0-0.1); BASOPHILS % 0.7 % (0.0-1.0); EOSINOPHILS # (AUTO) 0.3 (0.0-0.4); EOSINOPHILS % 3.7 % (0.0-6.0); HEMATOCRIT 31.5 % (34.2-44.1); HEMOGLOBIN 10.3 g/dL (12.0-16.0); LYMPHOCYTES % 13.6 % (18.0-39.1); MEAN CORPUSCULAR HEMOGLOBIN 27.5 pg (28-32); MEAN CORPUSCULAR HGB CONC 32.7 g/dL (31-35); MONOCYTES # (AUTO) 0.7 (0.2-0.8); MONOCYTES % 10.5 % (4.4-11.3); NEUTROPHILS # (AUTO) 4.9 (2.1-6.9); NEUTROPHILS % 70.2 % (38.7-80.0); PLATELET COUNT 249 x10e3/uL (140-360); RED BLOOD COUNT 3.75 x10e6/uL (3.6-5.1)
[2017-05-31 07:04] LABS: CALCIUM 7.8 mg/dL (8.4-10.2); CREATININE, SERUM 0.93 mg/dL (0.57-1.11)
[2017-05-31] MEDS ORDERED: POTASSIUM CHLORIDE 20 MEQ TAB CR PO STA (07:29)
[2017-05-31 07:30] VITALS: BP 126/61
[2017-05-31 08:08] VITALS: BP 126/61
[2017-05-31] MEDS: OYST-CAL-D 500MG TABLET PO SCH ×3 (09:35→21:41)
[2017-05-31] MEDS: DORZOLAMIDE HCL (OPTH) 10 ML BOTTLE OP SCH ×2 (09:35→17:00)
[2017-05-31] MEDS: AMIODARONE HCL 200 MG TAB PO SCH (09:35)
[2017-05-31] MEDS: RIVAROXABAN 10 MG TABLET PO SCH (09:36)
[2017-05-31] MEDS: METOPROLOL SUCCINATE 25 MG TAB XL PO SCH ×2 (09:36→21:42)
[2017-05-31] MEDS: SODIUM CHLORIDE 0.9% 1000ML 1,000 ML IV SCH (09:49)
--- NOTE | 2017-05-31 11:50 | Progress Note ---
DATE: May 31, 2017 at 6:50 a.m. SUBJECTIVE: Overnight some improvement. REVIEW OF SYSTEMS: No chest pain. PHYSICAL EXAMINATION VITAL SIGNS: Reviewed. GENERAL: A tired-appearing woman, resting in bed. HEENT: Anicteric. CARDIOVASCULAR: Normal S1 and S2. LUNGS: Moderate breath sounds. ABDOMEN: Soft and nontender. EXTREMITIES: No edema. SKIN: Dry. PSYCHIATRIC: Flat affect. LABS: Reviewed. MEDICATIONS: Reviewed. ASSESSMENT: A 72-year-old woman with: 1. Severe sepsis. 2. Urinary tract infection. 3. Bilateral hydronephrosis. 4. Acute colitis. 5. Intractable nausea and vomiting. 6. Atrial fibrillation. 7. Hyperlipidemia/hypertension. 8. Low attenuation lesion of the pancreas/indeterminate renal lesion. 9. Chronic kidney disease, stage 3. 10. C. diff positive colitis with diarrhea. 11. Pseudomonas urinary tract infection. PLAN: 1. Continue IV Flagyl and IV antibiotics. 2. Continue antiemetics. 3. Continue supportive care. 4. Diarrhea is improving. 5. Continue amiodarone and Xarelto. 6. Discharge planning to home or assisted care facility. 7. Leukocytosis has now resolved on Flagyl. 8. Will replace the potassium. 9. Acute kidney injury is improving. Job#: [id number]
[2017-05-31 12:36] VITALS: BP 148/66
[2017-05-31 16:32] VITALS: BP 141/63
[2017-05-31] MEDS: LATANOPROST(OPTH) 2.5 ML BTL OU SCH (21:41)
[2017-05-31] MEDS: SIMVASTATIN 20 MG TAB PO SCH (21:42)
[2017-05-31] MEDS: ONDANSETRON HCL INJ 2 MG/ML VIAL IV PRN (22:54)
[2017-06-01] MEDS: SODIUM CHLORIDE 0.9% 1000ML 1,000 ML IV SCH ×3 (02:25→19:12)
[2017-06-01] MEDS: METRONIDAZOLE 500MG/NS 100ML 100 ML IV SCH ×2 (02:25→14:23)
[2017-06-01] MEDS: CIPROFLOXACIN 400 MG/D5W 200ML 200 ML IV SCH ×2 (04:30→17:02)
[2017-06-01 06:07] LABS: BASOPHILS % 0.6 % (0.0-1.0); EOSINOPHILS # (AUTO) 0.3 (0.0-0.4); HEMATOCRIT 31.2 % (34.2-44.1); HEMOGLOBIN 10.2 g/dL (12.0-16.0); LYMPHOCYTES # (AUTO) 0.9 (1.0-3.2); MEAN CORPUSCULAR HEMOGLOBIN 27.4 pg (28-32); MEAN CORPUSCULAR HGB CONC 32.7 g/dL (31-35); MEAN CORPUSCULAR VOLUME 83.9 fL (81-99); MONOCYTES # (AUTO) 0.7 (0.2-0.8); MONOCYTES % 11.4 % (4.4-11.3); NEUTROPHILS # (AUTO) 4.1 (2.1-6.9); NEUTROPHILS % 66.4 % (38.7-80.0); PLATELET COUNT 244 x10e3/uL (140-360); RED BLOOD COUNT 3.72 x10e6/uL (3.6-5.1)
[2017-06-01 06:29] LABS: ANION GAP 10.1 mmol/L (8-16); BLOOD UREA NITROGEN 10 mg/dL (7-26); BUN/CREATININE RATIO 11 (6-25); CALCIUM 7.8 mg/dL (8.4-10.2); CARBON DIOXIDE 19 mmol/L (22-29); CHLORIDE 114 mmol/L (98-107); EST GLOMERULAR FILTRATION RATE > 60 ML/MIN (60-); GLUCOSE 141 mg/dL (74-118); POTASSIUM 3.1 mmol/L (3.5-5.1); SODIUM 140 mmol/L (136-145)
[2017-06-01 07:40] LABS: EOSINOPHILS % (MANUAL) 7 % (0-7); LYMPHOCYTES % (MANUAL) 14 % (19-48); METAMYELOCYTES % (MANUAL) 1 % (0-0); MONOCYTES % (MANUAL) 6 % (3.4-9.0); NEUTROPHILS % (MANUAL) 72 % (40-74)
[2017-06-01 07:41] LABS: ANISOCYTOSIS SLIGHT; HYPOCHROMASIA SLIGHT
[2017-06-01 07:42] LABS: PLATELET ESTIMATE ADEQUATE; PLATELET MORPHOLOGY COMMENT NORMAL; POIKILOCYTOSIS SLIGHT; RBC MORPHOLOGY COMMENT NORMAL
[2017-06-01] MEDS ORDERED: POTASSIUM CHLORIDE 20 MEQ TAB CR PO NR (07:45)
[2017-06-01 08:30] VITALS: BP 144/69
[2017-06-01 09:15] VITALS: BP 145/74
[2017-06-01] MEDS: DORZOLAMIDE HCL (OPTH) 10 ML BOTTLE OP SCH ×2 (09:15→17:02)
[2017-06-01] MEDS: OYST-CAL-D 500MG TABLET PO SCH ×3 (09:15→21:20)
[2017-06-01] MEDS: RIVAROXABAN 10 MG TABLET PO SCH (09:15)
[2017-06-01] MEDS: AMIODARONE HCL 200 MG TAB PO SCH (09:15)
[2017-06-01] MEDS: METOPROLOL SUCCINATE 25 MG TAB XL PO SCH ×2 (09:15→21:21)
--- NOTE | 2017-06-01 09:28 | Progress Note ---
DATE: June 01, 2017 TIME: 6:30 a.m. SUBJECTIVE: Overnight, she had small diarrhea. REVIEW OF SYSTEMS: Denies any dizziness. PHYSICAL EXAMINATION: VITAL SIGNS: Reviewed. GENERAL: Tired-appearing woman, resting in bed. HEENT: Nonicteric. CARDIOVASCULAR: Normal S1, S2. LUNGS: Moderate breath sounds. ABDOMEN: Soft, nontender. EXTREMITIES: No edema. SKIN: Dry. PSYCHIATRIC: Flat affect. LABS: Reviewed. MEDICATIONS: Reviewed. ASSESSMENT: A 72-year-old woman with: 1. Severe sepsis. 2. Urinary tract infection. 3. Bilateral hydronephrosis. 4. Acute colitis with C. difficile. 5. Intractable nausea and vomiting. 6. Atrial fibrillation. 7. Hyperlipidemia/hypertension. 8. Low-attenuation lesion of the pancreas/indeterminate renal lesion. 9. Chronic kidney disease, stage 3. 10. Pseudomonas urinary tract infection. PLAN 1. Continue IV antibiotics. 2. Continue antiemetics. 3. Continue fluids. 4. Advance diet to soft diet. 5. Continue amiodarone and Xarelto. 6. Replace potassium. 7. Leukocytosis has resolved and acute kidney injury is resolving. 8. Continue IV Cipro. 9. Obtain labs this morning. 10. Discharge planning. Job#: [id number] [place]
[2017-06-01 12:15] VITALS: BP 145/74
[2017-06-01 16:23] VITALS: BP 133/61
[2017-06-01 20:00] VITALS: BP 128/59
[2017-06-01] MEDS: SIMVASTATIN 20 MG TAB PO SCH (21:21)
[2017-06-01] MEDS: LATANOPROST(OPTH) 2.5 ML BTL OU SCH (21:30)
[2017-06-02] VITALS (7 sets, daily range): BP systolic 108–126; BP diastolic 50–67
[2017-06-02] MEDS: METRONIDAZOLE 500MG/NS 100ML 100 ML IV SCH ×2 (03:00→14:15)
[2017-06-02] MEDS: CIPROFLOXACIN 400 MG/D5W 200ML 200 ML IV SCH ×2 (03:52→16:57)
[2017-06-02] MEDS: AMIODARONE HCL 200 MG TAB PO SCH (07:57)
[2017-06-02] MEDS: METOPROLOL SUCCINATE 25 MG TAB XL PO SCH ×2 (07:58→21:00)
[2017-06-02] MEDS: DORZOLAMIDE HCL (OPTH) 10 ML BOTTLE OP SCH ×2 (07:58→16:57)
[2017-06-02] MEDS: OYST-CAL-D 500MG TABLET PO SCH ×3 (07:58→21:00)
[2017-06-02] MEDS: RIVAROXABAN 10 MG TABLET PO SCH (07:59)
[2017-06-02 08:55] LABS: MAGNESIUM 1.3 MG/DL (1.3-2.1); POTASSIUM 3.3 mmol/L (3.5-5.1)
[2017-06-02] MEDS ORDERED: POTASSIUM CHLORIDE 20 MEQ TAB CR PO SCH (09:00)
[2017-06-02] MEDS ORDERED: POTASSIUM CHLORIDE 20 MEQ TAB CR PO ONE (10:15)
[2017-06-02] MEDS: SODIUM CHLORIDE 0.9% 1000ML 1,000 ML IV SCH (10:57)
[2017-06-02] MEDS: SIMVASTATIN 20 MG TAB PO SCH (21:00)
[2017-06-02] MEDS: LATANOPROST(OPTH) 2.5 ML BTL OU SCH (21:00)
[2017-06-03 00:59] VITALS: BP 111/59
[2017-06-03] MEDS: METRONIDAZOLE 500MG/NS 100ML 100 ML IV SCH ×2 (03:00→15:00)
[2017-06-03] MEDS: CIPROFLOXACIN 400 MG/D5W 200ML 200 ML IV SCH ×2 (04:00→16:00)
[2017-06-03] MEDS: SODIUM CHLORIDE 0.9% 1000ML 1,000 ML IV SCH (05:03)
[2017-06-03 06:48] VITALS: BP 134/67
[2017-06-03 07:00] VITALS: BP 152/60
[2017-06-03 08:00] VITALS: BP 152/60
--- NOTE | 2017-06-03 08:24 | Progress Note ---
DATE: June 02, 2017 TIME: 8 a.m. OVERNIGHT: Some diarrhea and some nausea. REVIEW OF SYSTEMS: Denies any dizziness or chest pain. PHYSICAL EXAMINATION VITAL SIGNS: Reviewed. GENERAL: A tired-appearing woman resting in bed. HEENT: Anicteric. CARDIOVASCULAR: Normal S1 and S2. LUNGS: Moderate breath sounds. ABDOMEN: Soft and nontender. EXTREMITIES: No edema. SKIN: Dry. PSYCHIATRIC: Flat affect. LABS: Reviewed. MEDICATIONS: Reviewed. ASSESSMENT: A 72-year-old woman with: 1. Severe sepsis. 2. Urinary tract infection and acute colitis with Clostridium difficile infection. 3. Bilateral hydronephrosis. 4. Intractable nausea and vomiting. 5. Atrial fibrillation. 6. Hyperlipidemia/hypertension. 7. Chronic kidney disease, stage 3. 8. Pseudomonas urinary tract infection. PLAN 1. Continue IV antibiotics. 2. Continue treatment of C. difficile. 3. Continue with diet. 4. Continue amiodarone and Xarelto. 5. Continue physical therapy. 6. Discharge planning to skilled facility. Job#: [id number] [place]
--- NOTE | 2017-06-03 08:28 | Progress Note ---
DATE: June 03, 2017 TIME: 7:45 a.m. OVERNIGHT: Some nausea. Has some diarrhea. REVIEW OF SYSTEMS: Denies any dizziness. PHYSICAL EXAMINATION VITAL SIGNS: Reviewed. GENERAL: A tired-appearing woman resting in bed. HEENT: Anicteric. CARDIOVASCULAR: Normal S1 and S2. LUNGS: Moderate breath sounds. ABDOMEN: Soft and nontender. EXTREMITIES: No edema. SKIN: Dry. PSYCHIATRIC: Flat affect. LABS: Reviewed. MEDICATIONS: Reviewed. ASSESSMENT: A 72-year-old woman with: 1. Severe sepsis/acute colitis with Clostridium difficile infection. 2. Pseudomonas urinary tract infection. 3. Bilateral hydronephrosis. 4. Intractable nausea and vomiting. 5. Atrial fibrillation. 6. Hypertension and hyperlipidemia. 7. Chronic kidney disease, stage 3. PLAN 1. Continue IV antibiotics. 2. Continue antiemetics. 3. Continue supportive care. 4. Continue Xarelto and amiodarone. 5. Leukocytosis has resolved. 6. Replace potassium. 7. Replace phosphorus. 8. Discharge planning to skilled facility. Job#: [id number] [place]
[2017-06-03] MEDS: AMIODARONE HCL 200 MG TAB PO SCH (08:45)
[2017-06-03] MEDS: OYST-CAL-D 500MG TABLET PO SCH ×2 (08:45→15:00)
[2017-06-03] MEDS: DORZOLAMIDE HCL (OPTH) 10 ML BOTTLE OP SCH ×2 (08:46→17:00)
[2017-06-03] MEDS: RIVAROXABAN 10 MG TABLET PO SCH (08:46)
[2017-06-03] MEDS: METOPROLOL SUCCINATE 25 MG TAB XL PO SCH (08:46)
[2017-06-03 12:00] VITALS: BP 109/50
[2017-06-03 16:00] VITALS: BP 109/60
[2017-06-03] MEDS ORDERED: LATANOPROST(OPTH) 2.5 ML BTL OU SCH (21:00)
== END 2017-06-03 18:46 | DRG 872 ==
LOC: ER 11:07 → ERHOLD 17:14 → MED/SURG2 20:08
PROVIDERS: ADMIT Internal Medicine; ATTEND Internal Medicine
DX: A41.9 Sepsis, unspecified organism (principal); A04.72 Enterocolitis due to Clostridium difficile, not specified as recurrent; I48.91 Unspecified atrial fibrillation; N13.6 Pyonephrosis; N18.3 Chronic kidney disease, stage 3 (moderate); R65.20 Severe sepsis without septic shock; B96.5 Pseudomonas (aeruginosa) (mallei) (pseudomallei) as the cause of diseases classified elsewhere; I12.9 Hypertensive chronic kidney disease with stage 1 through stage 4 chronic kidney disease, or unspecified chronic kidney disease; E78.5 Hyperlipidemia, unspecified; K21.9 Gastro-esophageal reflux disease without esophagitis; Z79.01 Long term (current) use of anticoagulants
CPT/HCPCS: 36415; 71046; 74177; 80048; 80053; 81001; 82550; 82553; 82948; 83605; 83690; 83735; 83880; 84100; 84132; 84484; 85025; 85610; 85730; 87070; 87086; 87186; 87205; 87400; 87493; 93005; 99284; J2405; J2550; J7030; Q9967

== ENCOUNTER 2017-06-17 13:55 | Observation (INO) | payer MEDICARE ==
[~2017-06-17] VITALS: Ht 162.6 cm; Wt 59.1 kg
--- OUTSIDE RECORDS SUMMARY | 2017-06-17 13:59 | XMS REPORT | Clinical Summary ---
Author Author KATHERINE [facility] Address Unknown Phone Unavailable Care Team Providers Care Greenskeeper Supervisor Name Role Phone PCP Unavailable Allergies No Known Allergies Current Medications Not on file Active Problems Not on file Social History Tobacco Use Types Packs/Day Years Used Date Never Smoker Alcohol Use Drinks/Week oz/Week Comments No Sex Assigned at Date Recorded Not on file Last Filed Vital Signs Not on file Plan of Treatment Not on file Results Not on fileafter 06/16/2016
--- OUTSIDE RECORDS SUMMARY | 2017-06-17 14:00 | XMS REPORT | Continuity of Care Document ---
Author Author [facility] Organization [facility] Address [address] [place] [address] Phone Unavailable Care Team Providers Care Paper Grader Name Role Phone CALLIE OCAMPO MD PCP Insurance Providers Guarantor Rivas Casanova Address [address] [place] [address] Email PT DECLINED Payer [facility] Policy Number [id number] Subscriber's Name Rivas Casanova Relationship 18 Self / Same As Patient Group Number [id number] Group Name RETIRED Effective Date 17 Payer [facility] Policy Number [id number] Subscriber's Name Rivas Casanova Relationship 18 Self / Same As Patient Effective Date 13 Advance Directives Directive Response Recorded Date/Time Does the patient have an advance directive? No 05/27/17 8:30pm If yes, is advance directive on file with [facility]? No 05/15/17 1:35pm If not on file with [facility] will patient provide a copy? No 05/15/17 1:35pm Do you have a Directive to Physician? No 05/27/17 11:52am Do you have a Medical Power of Jukebox Operator? No 05/27/17 11:52am Do you have an out of hospital Do Not Resuscitate Order? No 05/27/17 11:52am Do you have any special needs we should be aware of? No 05/27/17 11:52am Do you have a support person here with you today? Yes 05/27/17 11:52am Did patient receive Notice of Privacy Practices? Yes 05/27/17 11:52am Did patient receive patient rights and responsibilities? Yes 05/27/17 11:52am Problems Medical Problem Onset Date Status Chest pain Unknown Medications Current Home Medications Medication Dose Units Route Directions Days Qty Instructions Start Date Acetaminophen With Codeine (Tylenol With Codeine #3 Tablet) 1 Each Tablet 300 Mg Oral Every 6 Hours as needed for Pain Amiodarone Hcl 200 Mg Tablet 200 Mg Oral Daily Calcium Carbonate 500 Mg Tablet 500 Mg Oral Cholecalciferol (Vitamin D3) (Vitamin D3) 1,000 Unit Tab.chew 1,000 Mg Oral Daily Dorzolamide Hcl 10 Ml Drops Each Eye Twice A Day Latanoprost 2.5 Ml Drops Each Eye Bedtime Levofloxacin (Levaquin) 250 Mg Tablet 250 Mg Oral Daily 30 Tab Metoprolol Succinate 25 Mg Tab.er.24h 25 Mg Oral Twice A Day Potassium Chloride 10 Meq Tab.er.prt 10 Meq Oral Daily Rivaroxaban (Xarelto) 10 Mg Tablet 10 Mg Oral Daily Simvastatin (Zocor) 20 Mg Tablet 20 Mg Oral Bedtime Tylenol Past Home Medications Medication Directions Ordered Status Ciprofloxacin Hcl (Cipro) 500 Mg Tablet, 500 Mg Oral Every 12 Hours Discontinued Ciprofloxacin Hcl 250 Mg Tablet, 250 Mg Oral Twice A Day Discontinued Levofloxacin (Levaquin) 250 Mg Tablet, 250 Mg Oral Daily Discontinued Po , Discontinued Potassium Citrate , Discontinued Rivaroxaban (Xarelto) 20 Mg Tablet, 1 Tab Oral Daily Discontinued Simvastatin (Zocor) 20 Mg Tablet, 20 Mg Oral Bedtime Discontinued Social History Social History Problem Response Recorded Date/Time Onset Date Status Hx Psychiatric Problems No 05/27/2017 8:30pm Not Applicable Not Applicable Hx Eating Disorder No 05/27/2017 8:30pm Not Applicable Not Applicable Hx Substance Use Disorder No 05/27/2017 8:30pm Not Applicable Not Applicable Hx Depression No 05/27/2017 8:30pm Not Applicable Not Applicable Hx Alcohol Use No 05/27/2017 8:30pm Not Applicable Not Applicable Hx Substance Use Treatment No 05/27/2017 8:30pm Not Applicable Not Applicable Hx Physical Abuse No 05/27/2017 8:30pm Not Applicable Not Applicable Smoking Status Start Date Stop Date Never Smoker Hospital Discharge Instructions No hospital discharge instruction information available. Plan of Care Discharge Date 06/03/17 6:46pm Disposition TRANSFER CORRECTION Prescriptions See Medication Section Functional Status Query Response Date Recorded FUNCTIONAL STATUS . June 02, 2017 1:32pm Assistive Devices None May 27, 2017 8:30pm Ambulation Ability Independent May 27, 2017 8:30pm Toileting Ability Minimum Assistance June 03, 2017 5:53pm Allergies, Adverse Reactions, Alerts No known allergies. Immunizations No immunization information available. Vital Signs Acute Vital Signs Vital Response Date/Time Temperature (Fahrenheit) 98.6 degrees F (97.6 - 99.5) 06/03/2017 4:00pm Pulse Pulse Rate (adult) 66 bpm (60 - 90) 06/03/2017 4:00pm Respiratory Rate 18 bpm (12 - 24) 06/03/2017 4:00pm Blood Pressure 109/60 mm Hg 06/03/2017 4:00pm Height 5 ft 4 in 05/27/2017 11:12am Weight 162 lb 06/03/2017 6:49am Body Mass Index 27.8 kg/m^2 06/03/2017 6:49am Results Laboratory Results Test Name Result Units Flags Reference Collection Date/Time Result Date/ Time Comments Basophils % (Manual) 1 % 0-1.5 02/04/2017 6:50pm 02/04/2017 9:01pm White Blood Count 6.21 x10e3/uL 4.8-10.8 06/01/2017 5:52am 06/01/2017 6 :07am Red Blood Count 3.72 x10e6/uL 3.6-5.1 06/01/2017 5:52am 06/01/2017 6: 07am Hemoglobin 10.2 g/dL L 12.0-16.0 06/01/2017 5:52am 06/01/2017 6:07am Hematocrit 31.2 % L 34.2-44.1 06/01/2017 5:52am 06/01/2017 6:07am Mean Corpuscular Volume 83.9 fL 81-99 06/01/2017 5:06/01/2017 6: 07am Mean Corpuscular Hemoglobin 27.4 pg L 28-32 06/01/2017 5:2017 6:07am Mean Corpuscular Hemoglobin Concent 32.7 g/dL 31-35 06/01/2017 5:5206/01/2017 6:07am Red Cell Distribution Width 14.0 % 11.7-14.4 06/01/2017 5:2017 6:07am Platelet Count 244 x10e3/uL 140-360 06/01/2017 5:06/01/2017 6: 07am Neutrophils (%) (Auto) 66.4 % 38.7-80.0 06/01/2017 5:06/01/2017 6: 07am Lymphocytes (%) (Auto) 15.0 % L 18.0-39.1 06/01/2017 5:06/01/2017 6 :07am Monocytes (%) (Auto) 11.4 % H 4.4-11.3 06/01/2017 5:06/01/2017 6: 07am Eosinophils (%) (Auto) 4.0 % 0.0-6.0 06/01/2017 5:06/01/2017 6: 07am Basophils (%) (Auto) 0.6 % 0.0-1.0 06/01/2017 5:06/01/2017 6:07am IM GRANULOCYTES % 2.6 % H 0.0-1.0 06/01/2017 5:06/01/2017 6:07am Neutrophils # (Auto) 4.1 2.1-6.9 06/01/2017 5:06/01/2017 6:07am Lymphocytes # (Auto) 0.9 L 1.0-3.2 06/01/2017 5:06/01/2017 6: 07am Monocytes # (Auto) 0.7 0.2-0.8 06/01/2017 5:06/01/2017 6:07am Eosinophils # (Auto) 0.3 0.0-0.4 06/01/2017 5:06/01/2017 6:07am Basophils # (Auto) 0.0 0.0-0.1 06/01/2017 5:52am 06/01/2017 6:07am Absolute Immature Granulocyte (auto 0.16 x10e3/uL H 0-0.1 06/01/2017 5: 52am 06/01/2017 6:07am Differential Total Cells Counted 100 06/01/2017 5:52am 06/01/2017 7 :42am Neutrophils % (Manual) 72 % 40-74 06/01/2017 5:52am 06/01/2017 7:42am Band Neutrophils % 4 % 05/29/2017 5:47am 05/29/2017 9:48am Lymphocytes % (Manual) 14 % L 19-48 06/01/2017 5:52am 06/01/2017 7:42am Monocytes % (Manual) 6 % 3.4-9.0 06/01/2017 5:52am 06/01/2017 7:42am Eosinophils % (Manual) 7 % 0-7 06/01/2017 5:52am 06/01/2017 7:42am Metamyelocytes % 1 % H 0-0 06/01/2017 5:52am 06/01/2017 7:42am Platelet Estimate ADEQUATE 06/01/2017 5:52am 06/01/2017 7:42am Platelet Morphology Comment NORMAL 06/01/2017 5:52am 06/01/2017 7: 42am Hypochromasia SLIGHT 06/01/2017 5:52am 06/01/2017 7:42am Poikilocytosis SLIGHT 06/01/2017 5:52am 06/01/2017 7:42am Anisocytosis SLIGHT 06/01/2017 5:52am 06/01/2017 7:42am Red Cell Morphology Comment NORMAL 06/01/2017 5:52am 06/01/2017 7: 42am Prothrombin Time 15.0 seconds H 11.9-14.5 05/27/2017 12:15pm 05/27/2017 12:56pm Prothromb Time International Ratio 1.12 05/27/2017 12:15pm 2017 12:56pm Oral Anticoagulant Therapy INR Values: 1. Low Intensity Therapy 1.5 - 2.0 2. Moderate Intensity Therapy 2.0 - 3.0 3. High Intensity Therapy(1) 2.5 - 3.5 4. High Intensity Therapy(2) 3.0 - 4.0 5. Panic Value INR > 5.0 Activated Partial Thromboplast Time 33.6 seconds 23.8-35.5 05/27/2017 12 :15pm 05/27/2017 12:56pm Urine Color YELLOW YELLOW 05/27/2017 11:05/27/2017 12:57pm Urine Clarity CLEAR CLEAR 05/27/2017 11:05/27/2017 12:57pm Urine Specific [place] 1.015 1.010-1.025 05/27/2017 11:2017 12:57pm Urine pH 5 5 - 7 05/27/2017 11:05/27/2017 12:57pm Urine Leukocyte Esterase NEGATIVE NEGATIVE 05/27/2017 11:2017 12:57pm Urine Nitrite NEGATIVE NEGATIVE 05/27/2017 11:05/27/2017 12: 57pm Urine Protein NEGATIVE NEGATIVE 05/27/2017 11:05/27/2017 12: 57pm Urine Glucose (UA) NEGATIVE NEGATIVE 05/27/2017 11:05/27/2017 12 :57pm Urine Ketones TRACE H NEGATIVE 05/27/2017 11:05/27/2017 12:57pm Urine Urobilinogen 0.2 mg/dL 0.2 - 1 05/27/2017 11:05/27/2017 12: 57pm Urine Bilirubin NEGATIVE NEGATIVE 05/27/2017 11:05/27/2017 12: 57pm Urine Blood 2+ H NEGATIVE 05/27/2017 11:05/27/2017 12:57pm Urine WBC 11-20 /HPF H 0-5 05/27/2017 11:05/27/2017 1:08pm Urine RBC 6-10 /HPF H 0-5 05/27/2017 11:05/27/2017 1:08pm Urine Bacteria MODERATE /HPF H NONE 05/27/2017 11:05/27/2017 1: 08pm Urine Epithelial Cells FEW /LPF NONE 05/27/2017 11:05/27/2017 1: 08pm Urine Transitional Epithelial Cells FEW H NONE 05/27/2017 11: 1:08pm Urine Mucus FEW H RARE 05/27/2017 11:05/27/2017 1:08pm Sodium Level 140 mmol/L 136-145 06/01/2017 5:52am 06/01/2017 6:37am Potassium Level 3.3 mmol/L L 3.5-5.1 06/02/2017 8:20am 06/02/2017 8: 55am Chloride Level 114 mmol/L H 98-107 06/01/2017 5:52am 06/01/2017 6:37am Influenza Virus Types A,B Antigen NEGATIVE NEGATIVE 05/27/2017 12: 15pm 05/27/2017 12:57pm Carbon Dioxide Level 19 mmol/L L -06/01/2017 5:52am 06/01/2017 6: 37am Anion Gap 10.1 mmol/L 8-06/01/2017 5:52am 06/01/2017 6:37am Blood Urea Nitrogen 10 mg/dL 706/01/2017 5:52am 06/01/2017 6:37am Creatinine 0.90 mg/dL 0.57-1.11 06/01/2017 5:52am 06/01/2017 6:37am BUN/Creatinine Ratio 11 606/01/2017 5:52am 06/01/2017 6:37am Estimat Glomerular Filtration Rate > 60 ML/MIN 6006/01/2017 5:52am 6:37am Ranges were taken from the National Kidney Disease Education Program and the National Kid[employer] Foundation literature. Reference ranges: 60 or greater: Normal 16-59 (for 3 consecutive months): Chronic kidney disease 15 or less: Kidney failure Glucose Level 141 mg/dL H 74-118 06/01/2017 5:52am 06/01/2017 6:37am Calcium Level 7.8 mg/dL L 8.4-10.2 06/01/2017 5:52am 06/01/2017 6:37am Bedside Glucose 99 mg/dL 70-120 05/30/2017 7:25am 05/30/2017 7:53am Meter ID: [id number] Lactic Acid Level 8.7 MG/DL 4.5-19.8 05/27/2017 1:10pm 05/27/2017 1: 37pm Phosphorus Level 2.0 MG/DL L 2.3-4.7 06/02/2017 8:20am 06/02/2017 8: 55am Magnesium Level 1.3 MG/DL 1.3-2.1 06/02/2017 8:20am 06/02/2017 8:55am Total Bilirubin 0.8 mg/dL 0.2-1.2 05/28/2017 5:44am 05/28/2017 6:32am Aspartate Amino Transf (AST/SGOT) 12 IU/L 5-34 05/28/2017 5:44am 2017 6:32am Alanine Aminotransferase (ALT/SGPT) 17 IU/L 0-55 05/28/2017 5:44am 04/2017 6:32am Total Protein 6.2 g/dL L 6.5-8.1 05/28/2017 5:44am 05/28/2017 6:32am Albumin 2.9 g/dL L 3.5-5.0 05/28/2017 5:44am 05/28/2017 6:32am Globulin 3.3 g/dL 2.3-3.5 05/28/2017 5:44am 05/28/2017 6:32am Albumin/Globulin Ratio 0.9 0.8-2.0 05/28/2017 5:44am 05/28/2017 6: 32am Alkaline Phosphatase 72 IU/L 40-150 05/28/2017 5:44am 05/28/2017 6: 32am B-Type Natriuretic Peptide 302.1 pg/mL H 0-100 05/27/2017 12:15pm 2017 1:21pm Creatine Kinase 36 IU/L 29-168 05/27/2017 12:15pm 05/27/2017 1:04pm Creatine Kinase MB 0.70 ng/mL 0.00-5.00 05/27/2017 12:15pm 05/27/2017 1 :08pm Troponin I 0.007 ng/mL 0-0.300 05/27/2017 12:15pm 05/27/2017 1:08pm Lipase 16 U/L 8-78 05/27/2017 12:15pm 05/27/2017 1:04pm Clostridium Difficile Toxin A & B POSITIVE H NEGATIVE 05/28/2017 12 :30pm 05/28/2017 10:06pm Results called to CAREN MAHMOOD at 2202 on 05/14 by KEVON GIMENEZ. RB OK. Results LFT MSG TO [facility] in infection control at 2202 on 05/28/17 by KEVON GIMENEZ. Testing on stool aspirate specimens is outside smoke tester claims since specimen type not validated on this assay. Microbiology Results Procedure Source Organism/Result Collection Date/Time Result Date/Time Result Status Blood Culture Blood NO GROWTH AFTER 5 DAYS, FINAL REPORT 02/04/2017 7:30pm 02/09/2017 8:00pm Final Urine Culture Urine,Clean Catch PSEUDOMONAS AERUGINOSA 05/27/2017 11:20am 05/29/2017 11:41am Final Procedures Procedure Status Date Provider(s) Total vaginal hysterectomy Completed 05/15/17 ANA OHARA MD X-ray of chest, two views Active 02/04/17 LEISA TAYLOR [employer] CT of abdomen and pelvis without contrast Active 02/04/17 LEISA TAYLOR [employer] X-ray of chest, two views Active 05/13/17 ANA OHARA MD X-ray of chest, two views Active 05/18/17 ANA OHARA MD X-ray of chest, two views Active 05/27/17 SHERRELL ANDRADE NP Computed tomography of abdomen and pelvis with contrast Active 05/27/17 SHERRELL ANDRADE NP Encounters Encounter Location Arrival/Admit Date Discharge/Depart Date Attending Provider Discharged Inpatient [facility] 05/27/17 5:14pm 06/03/17 6:46pm MIKI VIDAL MD Discharged Inpatient (obs) [facility] 05/15/17 11:23am 7:48pm ANA OHARA MD Departed Emergency Room [facility] 02/04/17 1:36pm 10:41pm MICHELLE THOMAS MD
[2017-06-17] MEDS ORDERED: FUROSEMIDE INJ 10 MG/ML 2 ML VIAL IV ONE (15:00)
[2017-06-17] MEDS ORDERED: ASPIRIN 81 MG CHEW TAB PO ONE (15:00)
[2017-06-17 15:25] LABS: BASOPHILS # (AUTO) 0.1 (0.0-0.1); BASOPHILS % 0.8 % (0.0-1.0); EOSINOPHILS # (AUTO) 0.3 (0.0-0.4); HEMATOCRIT 34.8 % (34.2-44.1); HEMOGLOBIN 11.4 g/dL (12.0-16.0); LYMPHOCYTES % 8.4 % (18.0-39.1); MEAN CORPUSCULAR HEMOGLOBIN 27.1 pg (28-32); MEAN CORPUSCULAR HGB CONC 32.8 g/dL (31-35); MEAN CORPUSCULAR VOLUME 82.9 fL (81-99); MONOCYTES # (AUTO) 1.3 (0.2-0.8); MONOCYTES % 10.7 % (4.4-11.3); NEUTROPHILS # (AUTO) 9.4 (2.1-6.9); NEUTROPHILS % 76.4 % (38.7-80.0); PLATELET COUNT 244 x10e3/uL (140-360); RED CELL DISTRIBUTION WIDTH 14.6 % (11.7-14.4)
--- NOTE | 2017-06-17 15:29 | Diagnostic Imaging Report ---
PROCEDURE: CHEST SINGLE (PORTABLE), 1505 hrs. COMPARISON: Chest x-ray 05/27/17. INDICATIONS: SWOLLEN LEGS FINDINGS: LUNGS: Stable hyperinflation. No mass or infiltrate. Central eventration of the right diaphragm is stable. Pulmonary vascular markings are normal. PLEURA: No effusions or pneumothorax. HEART \T\ MEDIASTINUM: The heart is top normal in size. There is mild aortic ectasia. No hilar lymphadenopathy. BONES \T\ SOFT TISSUES: No focal osseous lesions. Soft tissues are unremarkable.. CONCLUSION: No evidence of CHF or pulmonary edema. Mild pulmonary hyperinflation. No acute cardiopulmonary process. Dictated by: Virginia Durand M.D. on 06/17/2017 at 15:28 Electronically approved by: Virginia Durand M.D. on 06/17/2017 at 15:28
[2017-06-17 15:38] LABS: INR 1.14; PROTHROMBIN TIME 13.7 seconds (11.9-14.5)
[2017-06-17 15:39] LABS: PARTIAL THROMBOPLASTIN TIME 30.1 seconds (23.8-35.5)
[2017-06-17 15:45] LABS: ALBUMIN 2.4 g/dL (3.5-5.0); ALBUMIN/GLOBULIN RATIO 0.8 (0.8-2.0); ANION GAP 12.9 mmol/L (8-16); CREATININE, SERUM 1.23 mg/dL (0.57-1.11)
[2017-06-17 15:52] LABS: CREATINE KINASE MB 1.5 ng/mL (0-5.0); POTASSIUM 2.9 mmol/L (3.5-5.1)
[2017-06-17] MEDS ORDERED: POTASSIUM CHLORIDE 20 MEQ TAB CR PO STA (16:03)
[2017-06-17] MEDS ORDERED: SODIUM CHLORIDE 0.9% 500ML 500 ML IV ONE (16:30)
[2017-06-17] MEDS ORDERED: SODIUM CHLORIDE 0.9% 500ML 500 ML ONE (16:33)
[2017-06-17 16:48] LABS: BAND NEUTROPHILS % (MANUAL) 6 %; EOSINOPHILS % (MANUAL) 4 % (0-7); LYMPHOCYTES % (MANUAL) 7 % (19-48); MONOCYTES % (MANUAL) 9 % (3.4-9.0); NEUTROPHILS % (MANUAL) 74 % (40-74); PLATELET MORPHOLOGY COMMENT NORMAL
[2017-06-17 16:49] LABS: PLATELET ESTIMATE ADEQUATE; RBC MORPHOLOGY COMMENT NORMAL
--- NOTE | 2017-06-17 18:06 | Diagnostic Imaging Report ---
PROCEDURE:CT CHEST WITH CONTRAST COMPARISON:CT abdomen/pelvis 05/27/17, chest x-ray 11/12/13 and 06/17/17 INDICATIONS:SHORTNESS OF BREATH, SWOLLEN LEGS TECHNIQUE: Axial CT images of the chest were obtained after the intravenous administration of 100 cc of nonionic contrast. Pulmonary artery protocol was performed. Coronal and sagittal reformations were made available for review. RADIATION DOSE: Total DLP: 501.6 mGy*cm Estimated effective dose: (DLP x 0.014 x size factor) mSv FINDINGS: Pulmonary arteries: Main pulmonary artery measures 2.6 cm in diameter. There are no filling defects. Lungs: Right lung: Diffusely hyperinflated. Noncalcified nodule in the lateral right lower lobe measures 4 mm and is stable. Small focus of groundglass attenuation in the anterior basal segment of the lower lobe just above the diaphragm. Left lung: With the band of subsegmental atelectasis/scarring lower lobe. There is groundglass attenuation at the hilum of the lingula. No evidence of mass. Pleura:Posterior layering right pleural effusion measures 8 mm. No enhancement of visceral or parietal pleura. There is eventration of the right diaphragm. Heart \T\ Mediastinum:The heart is top normal in size with prominence of the pericardial fat pads. The aorta is ectatic with calcifications throughout. Timing of the contrast bolus is for the pulmonary arteries so aortic dissection cannot be entirely excluded. Aortic and mitral valve calcifications and coronary artery calcifications are present. There is a small amount of fluid in the posterior pericardial recess. The esophagus is normal. Lymph nodes: No enlarged axillary, supraclavicular, mediastinal, or hilar lymph nodes. Subcentimeter calcified left hilar lymph nodes are present consistent with healed granulomatous inflammation. Thyroid/base of neck: Unremarkable. Upper abdomen:The gallbladder is absent. There is inflammation in the expected location of the proximal transverse colon. This is incompletely imaged. There is mural thickening of the distal transverse colon and splenic flexure. Visualized portions of the liver and spleen are unremarkable. No pancreas mass. There is fullness of the right renal collecting system similar to previous exam. There is mild adrenal gland thickening without discrete mass. Musculoskeletal:Dextroscoliosis of the thoracic spine is stable. There are no compression fractures. There are no lytic or blastic lesions. CONCLUSION: 1. No evidence of pulmonary embolus. 2. Small right pleural effusion. This may be reactive secondary to an inflammatory process of the colon, particularly in the right upper quadrant. 3. Inflammatory changes in the right upper quadrant, particularly in the region of the transverse colon. 4. Pulmonary hyperinflation suggestive of COPD. Small focus of groundglass attenuation in the left lung is suggestive of an inflammatory process. Stable bilateral lower lobe pulmonary nodules. Dictated by: Virginia Durand M.D. on 06/17/2017 at 18:05 Electronically approved by: Virginia Durand M.D. on 06/17/2017 at 18:05
[2017-06-17] MEDS ORDERED: PEPCID20 MG PO (18:09)
--- OUTSIDE RECORDS SUMMARY | 2017-06-17 19:04 | XMS REPORT | Clinical Summary ---
Author Author KATHERINE [facility] Address Unknown Phone Unavailable Care Team Providers Care Digital Account Coordinator Name Role Phone PCP Unavailable Allergies No [...]
[2017-06-17] MEDS ORDERED: SODIUM CHLORIDE 0.9% 50ML 50 ML ONE (20:39)
[2017-06-17] MEDS ORDERED: IOPAMIDOL 370 MG/ML 200 ML INFUS..BTL INJ ONE (20:39)
[2017-06-17 21:00] VITALS: BP 120/68
[2017-06-18] VITALS (7 sets, daily range): BP systolic 105–124; BP diastolic 52–59
[2017-06-18] MEDS: FUROSEMIDE INJ 10 MG/ML 2 ML VIAL IV SCH ×2 (04:11→18:17)
[2017-06-18 06:22] LABS: ANION GAP 14.5 mmol/L (8-16); CALCIUM 7.6 mg/dL (8.4-10.2); CREATININE, SERUM 1.08 mg/dL (0.57-1.11)
[2017-06-18 06:26] LABS: POTASSIUM 2.5 mmol/L (3.5-5.1)
[2017-06-18] MEDS ORDERED: POTASSIUM CHLORIDE 20MEQ/100ML 100 ML IV STA (06:33)
[2017-06-18] MEDS ORDERED: POTASSIUM CHLORIDE 20 MEQ TAB CR PO STA (06:33)
[2017-06-18] MEDS ORDERED: ACETAMINOPHEN/CODEINE 300MG - 30MG TAB PO PRN (06:45)
--- NOTE | 2017-06-18 07:50 | History and Physical ---
PRIMARY CARE PHYSICIAN: Dr. Harper CHIEF COMPLAINT: Leg swelling. HISTORY OF PRESENT ILLNESS: This is a 72-year-old woman who was recently discharged after Pseudomonas infection and C. difficile infection, went to skilled facility, subsequently transitioned home. At home, she developed leg swelling, went to her doctor, sent to the hospital for further evaluation and management. Ultrasound in the emergency room negative for any DVT. She also has some shortness of breath. CT imaging of the lung also negative, no PE. Patient is feeling much better now after she has been diuresed overnight. Denies any chest pain. No shortness of breath. PAST MEDICAL HISTORY: Hypertension, hyperlipidemia, GERD, atrial fibrillation, chronic kidney disease stage 3, severe sepsis, acute colitis with C. difficile infection, Pseudomonas urinary tract infection, bilateral hydronephrosis, intractable nausea and vomiting. PAST SURGICAL HISTORY: Hysterectomy, bladder lift. ALLERGIES: PER ELECTRONIC MEDICAL RECORD. FAMILY HISTORY/SOCIAL HISTORY: Patient is . She has 3 children. No alcohol, illicits, or cigarettes. MEDICATIONS: Per electronic medical record. REVIEW OF SYSTEMS: Denies any dizziness, chest pain. PHYSICAL EXAMINATION: VITAL SIGNS: Reviewed. GENERAL APPEARANCE: Tired-appearing woman resting in bed. HEENT: Anicteric. Pupils respond to light. No oral lesions. CARDIOVASCULAR: Normal S1 and S2. LUNGS: Moderate breath sounds. ABDOMEN: Soft, nontender, nondistended. EXTREMITIES: Trace edema. SKIN: Dry. PSYCHIATRIC: Flat affect. NEUROLOGICAL: Alert and oriented x3. LABS: Reviewed. MEDICATIONS: Reviewed. ASSESSMENT AND PLAN: This is a 72-year-old woman. 1. Peripheral edema. Diuresing and doing well. No deep venous thrombosis. Continue diuretics, and obtain 2-dimensional echocardiogram. 2. Severe hypokalemia. Will replace and recheck at noon and again recheck later in the evening. 3. Atrial fibrillation. Will continue anticoagulants and rate controlling medications. 4. Right pleural effusion. Continue diuretics. Follow up echocardiogram. 5. Hypertension/hyperlipidemia. Continue home medications. 6. Chronic kidney disease stage 3. Patient at baseline. 7. Recent Clostridium difficile infection. She had a soft stool, but no diarrhea. 8. Prophylaxis. Will continue Pepcid while patient is on Xarelto. 9. Disposition. Obtain labs. Recheck potassium and replace, and likely home tomorrow. Job#: [id number]
[2017-06-18] MEDS ORDERED: SODIUM CHLORIDE 0.9% 250ML 250 ML ONE (08:23)
[2017-06-18] MEDS: FAMOTIDINE 20 MG TAB PO SCH (08:24)
[2017-06-18] MEDS: OYST-CAL-D 500MG TABLET PO SCH ×3 (08:24→22:29)
[2017-06-18] MEDS: AMIODARONE HCL 200 MG TAB PO SCH (08:24)
[2017-06-18] MEDS: RIVAROXABAN 10 MG TABLET PO SCH (08:24)
[2017-06-18] MEDS: METOPROLOL SUCCINATE 25 MG TAB XL PO SCH ×2 (08:24→18:17)
[2017-06-18] MEDS: CHOLECALCIFEROL 1,000 UNIT TAB PO SCH (08:24)
[2017-06-18] MEDS: LISINOPRIL 10 MG TAB PO SCH (08:24)
[2017-06-18 08:44] LABS: CREATINE KINASE MB 0.8 ng/mL (0-5.0)
[2017-06-18] MEDS: POTASSIUM CHLORIDE 10 MEQ TABCR PO SCH (08:51)
[2017-06-18] MEDS ORDERED: CHOLECALCIFEROL 1000 MG PO SCH (09:00)
[2017-06-18] MEDS: DORZOLAMIDE HCL (OPTH) 10 ML BOTTLE OP SCH ×2 (09:00→17:00)
--- NOTE | 2017-06-18 09:35 | Consultation ---
DATE OF CONSULTATION: June 18, 2017 CARDIOLOGY CONSULTATION REASON FOR CONSULTATION: Cardiac arrhythmia. HPI: This is a pleasant 72-year-old female that presented with bilateral lower extremity edema. According to her, she was at a long-term and was recently discharged home. She said within 1 week she noted bilateral lower extremity edema. She went to see her PCP. She was sent to the hospital for evaluation. She has a history of AFib. Was anticoagulated with Xarelto. She also stated that since last week, Thursday, she started noticing nosebleed. She has stopped taking the blood thinner. She denies any chest pain, any palpitations, any dizziness, or shortness of breath. Her chest x-ray showed small right pleural effusion, pulmonary hyperinflation suggestive of COPD. PAST MEDICAL HISTORY: Hypertension, hyperlipidemia, kidney stone, chronic kidney disease, AFib, glaucoma, C. diff, bilateral hydronephrosis, sepsis and pseudomonas with UTI. PAST SURGICAL HISTORY: Hysterectomy, bladder lift, cholecystectomy, and ablation in the past for AFib, and renal stent. FAMILY HISTORY: Positive for hypertension. SOCIAL HISTORY: She lives at home with the family, and was recently discharged home from the long-term. MEDICATIONS: She was on amiodarone, potassium carbonate, vitamin D3, Pepcid, metoprolol, Xarelto, simvastatin, potassium chloride, and Tylenol No. 3. ALLERGIES: SHE IS NOT ALLERGIC TO ANY MEDICATION. REVIEW OF SYSTEMS: Negative except those mentioned above. She is positive for bilateral lower extremity edema and epistaxis. PHYSICAL EXAMINATION VITAL SIGNS: Temperature 97.6, heart rate 65, blood pressure 113/58, respirations 17, oxygen saturation 96% on room air. GENERAL: She is awake, alert and oriented times 3. HEENT: Mucous membrane moist. NECK: Supple. LUNGS: Bilateral decreased breath sounds. CARDIOVASCULAR: S1 and S2 present. ABDOMEN: Soft. NEUROLOGICAL: Intact. EXTREMITIES: With trace edema. LABS: Sodium 144, potassium 2.5, chloride 102, CO2 30, BUN 15, creatinine 1.08, glucose 87. White blood cell 12.2, hemoglobin 11.4, hematocrit 34.8, and platelets 244,000. PTT 13.7, PTT 30.1 and INR 1.14. IMPRESSION 1. History of atrial fibrillation. 2. Hypokalemia. 3. Hypertension. 4. Hyperlipidemia. 5. History of chronic kidney disease. 6. Epistaxis. 7. History of Clostridium difficile. ASSESSMENT AND PLAN: Her EKG showed sinus rhythm with frequent PACs fluctuating between AFib and flutter. Her Xarelto has been on hold due to nosebleed. Will get her potassium replaced. She is pending echo to assess the LV and valve function. Will continue diuretic. Bilateral lower extremity Doppler was negative for DVT. Her BNP was 120. Further cardiac workup pending clinical course. Thank you for this consultation. DICTATED BY ARELIS BEAVERS NP Job#: [id number] FALGUNI
[2017-06-18] MEDS: METRONIDAZOLE 500MG/NS 100ML 100 ML IV SCH ×2 (16:23→22:29)
[2017-06-18 18:45] LABS: BASOPHILS # (AUTO) 0.1 (0.0-0.1); BASOPHILS % 0.5 % (0.0-1.0); EOSINOPHILS # (AUTO) 0.2 (0.0-0.4); EOSINOPHILS % 2.3 % (0.0-6.0); HEMATOCRIT 34.2 % (34.2-44.1); HEMOGLOBIN 11.4 g/dL (12.0-16.0); LYMPHOCYTES # (AUTO) 1.3 (1.0-3.2); MEAN CORPUSCULAR HEMOGLOBIN 27.5 pg (28-32); MEAN CORPUSCULAR HGB CONC 33.3 g/dL (31-35); MEAN CORPUSCULAR VOLUME 82.4 fL (81-99); MONOCYTES # (AUTO) 1.2 (0.2-0.8); MONOCYTES % 11.1 % (4.4-11.3); NEUTROPHILS # (AUTO) 7.6 (2.1-6.9); NEUTROPHILS % 72.3 % (38.7-80.0); PLATELET COUNT 249 x10e3/uL (140-360); RED BLOOD COUNT 4.15 x10e6/uL (3.6-5.1); RED CELL DISTRIBUTION WIDTH 14.6 % (11.7-14.4)
[2017-06-18 18:59] LABS: CALCIUM 7.5 mg/dL (8.4-10.2); CREATININE, SERUM 1.18 mg/dL (0.57-1.11); MAGNESIUM 1.6 MG/DL (1.3-2.1); PHOSPHORUS 2.2 MG/DL (2.3-4.7)
[2017-06-18] MEDS ORDERED: SIMVASTATIN 20 MG TAB PO SCH (21:00)
[2017-06-19] VITALS: BP 119/55
[2017-06-19 04:00] VITALS: BP 107/51
[2017-06-19] MEDS: METRONIDAZOLE 500MG/NS 100ML 100 ML IV SCH ×2 (05:03→13:34)
[2017-06-19] MEDS ORDERED: FLAGYL500 MG PO (06:59)
[2017-06-19] MEDS ORDERED: QUESTRAN PACKET4 GM PO (06:59)
[2017-06-19 07:32] LABS: BASOPHILS # (AUTO) 0.1 (0.0-0.1); BASOPHILS % 0.6 % (0.0-1.0); EOSINOPHILS # (AUTO) 0.2 (0.0-0.4); EOSINOPHILS % 2.2 % (0.0-6.0); HEMATOCRIT 34.1 % (34.2-44.1); LYMPHOCYTES # (AUTO) 1.5 (1.0-3.2); LYMPHOCYTES % 14.4 % (18.0-39.1); MEAN CORPUSCULAR HGB CONC 32.3 g/dL (31-35); MEAN CORPUSCULAR VOLUME 83.6 fL (81-99); MONOCYTES % 9.7 % (4.4-11.3); NEUTROPHILS # (AUTO) 7.4 (2.1-6.9); NEUTROPHILS % 71.5 % (38.7-80.0); PLATELET COUNT 249 x10e3/uL (140-360); RED BLOOD COUNT 4.08 x10e6/uL (3.6-5.1); RED CELL DISTRIBUTION WIDTH 14.6 % (11.7-14.4)
[2017-06-19 08:02] LABS: CALCIUM 7.6 mg/dL (8.4-10.2); CREATININE, SERUM 1.06 mg/dL (0.57-1.11); MAGNESIUM 1.6 MG/DL (1.3-2.1)
[2017-06-19 08:28] VITALS: BP 108/54
[2017-06-19] MEDS: FUROSEMIDE INJ 10 MG/ML 2 ML VIAL IV SCH ×2 (09:00→16:43)
[2017-06-19] MEDS: CHOLECALCIFEROL 1,000 UNIT TAB PO SCH (09:00)
[2017-06-19] MEDS: POTASSIUM CHLORIDE 10 MEQ TABCR PO SCH (09:00)
[2017-06-19] MEDS: AMIODARONE HCL 200 MG TAB PO SCH (09:00)
[2017-06-19] MEDS: LISINOPRIL 10 MG TAB PO SCH (09:00)
[2017-06-19] MEDS: FAMOTIDINE 20 MG TAB PO SCH (09:00)
[2017-06-19] MEDS: RIVAROXABAN 10 MG TABLET PO SCH (09:00)
[2017-06-19] MEDS: METOPROLOL SUCCINATE 25 MG TAB XL PO SCH ×2 (09:00→16:43)
[2017-06-19] MEDS: DORZOLAMIDE HCL (OPTH) 10 ML BOTTLE OP SCH ×2 (09:00→16:43)
[2017-06-19] MEDS: OYST-CAL-D 500MG TABLET PO SCH ×2 (09:00→15:00)
[2017-06-19] MEDS ORDERED: POTASSIUM CHLORIDE 20 MEQ TAB CR PO STA (09:28)
[2017-06-19] MEDS ORDERED: POTASSIUM CHLORIDE 20MEQ/100ML 200 ML IV ONE (09:30)
[2017-06-19] MEDS ORDERED: POTASSIUM CHLORIDE 20MEQ/100ML 100 ML IV SCH ×2 (10:00)
[2017-06-19] MEDS ORDERED: POTASSIUM CHLORIDE 100 ML IV SCH (10:15)
[2017-06-19 12:21] VITALS: BP 94/47
--- NOTE | 2017-06-19 12:49 | Discharge Summary ---
PRINCIPAL DIAGNOSES 1. Peripheral edema. 2. Severe hypokalemia. 3. Atrial fibrillation. 4. Right pleural effusion. 5. Hypertension. 6. Chronic kidney disease, stage 3. 7. Persistent Clostridium difficile infection. SECONDARY DIAGNOSIS: Clostridium difficile infection. CHIEF COMPLAINT: Leg swelling. HISTORY OF PRESENT ILLNESS: This is a 72-year-old woman with leg swelling. Please refer to the H and P for further details. HOSPITAL COURSE: The patient was found to have leg swelling and treated with IV Lasix. She had severe hypokalemia, which was replaced. She had mild diarrhea from the persistent C. difficile infection. She was treated with Flagyl and we will continue with 14 additional days of Flagyl and oral vancomycin. Patient had right pleural effusion, which was minimal. She is doing better and currently appropriate for discharge. DISCHARGE MEDICATIONS: Per electronic medical record. FOLLOW-UP: Primary care doctor in 1 week. CONDITION ON DISCHARGE: Stable and improving. DISCHARGE LOCATION: Home with antibiotic therapy. MIKI VIDAL MD Job#: [id number] VAS
[2017-06-19 15:43] VITALS: BP 94/47
[2017-06-19 17:06] VITALS: BP 92/44
== END 2017-06-19 18:45 | disposition home or self-care (01) ==
LOC: ER 13:55 → UNDOADMOB 16:23 → MED/SURG 16:23 → INTOOBSV 19:01 → ERHOLD 19:01 → UNDOADMOB 19:01 → MED/SURG 20:03 → MED/SURG2 20:03 → ERHOLD 20:03 → UNDODISOB 06-19 18:45
PROVIDERS: ADMIT Internal Medicine; ATTEND Internal Medicine
DX: A41.9 Sepsis, unspecified organism (principal); R60.9 Edema, unspecified; E87.6 Hypokalemia; I48.91 Unspecified atrial fibrillation; Z79.01 Long term (current) use of anticoagulants; J90 Pleural effusion, not elsewhere classified; I12.9 Hypertensive chronic kidney disease with stage 1 through stage 4 chronic kidney disease, or unspecified chronic kidney disease; N18.3 Chronic kidney disease, stage 3 (moderate); A04.71 Enterocolitis due to Clostridium difficile, recurrent; E78.5 Hyperlipidemia, unspecified; Z86.19 Personal history of other infectious and parasitic diseases; R04.0 Epistaxis; R65.20 Severe sepsis without septic shock; N39.0 Urinary tract infection, site not specified; B96.5 Pseudomonas (aeruginosa) (mallei) (pseudomallei) as the cause of diseases classified elsewhere; N13.30 Unspecified hydronephrosis; E83.51 Hypocalcemia
CPT/HCPCS: 36415 ×3; 51700; 71045; 71260; 80048 ×2; 80053; 82550 ×2; 82553 ×2; 83735 ×2; 83880; 84100 ×2; 84132; 84484 ×2; 85025 ×3; 85379; 85610; 85730; 87493; 93005; 93306; 93970; 97116; 97161; 97530; 99284; G0378 ×3; J1940 ×3; J3480; J7040; J7050; Q9967

== ENCOUNTER 2017-10-20 07:00 | Observation (INO) | payer MEDICARE ==
[~2017-10-20] VITALS: Ht 162.6 cm; Wt 66.2 kg
[~2017-10-20 07:00] MED LIST changes: +FLAGYL500 MG PO; +PEPCID20 MG PO; +QUESTRAN PACKET4 GM PO
[2017-10-20] MEDS ORDERED: CELECOXIB 200 MG CAP ONE (07:36)
[2017-10-20] MEDS ORDERED: DEXAMETHASONE SOD PHOS 10 MG/1 ML VIAL ONE (07:36)
[2017-10-20] MEDS ORDERED: CEFAZOLIN SOD 2 GM/D5W 50ML 50 ML IV ONE (07:37)
[2017-10-20] MEDS ORDERED: GABAPENTIN 300 MG CAP ONE (07:37)
[2017-10-20] MEDS ORDERED: ROPIVACAINE 246.25 MG, EPINEPHRINE HCL 1:1000 0.5 MG, CLONIDINE HCL 0.08 MG, KETOROLAC ... INJ ONE ×5 (08:00)
[2017-10-20] MEDS ORDERED: TRANEXAMIC ACID 1,000 MG/10 ML ML ONE (08:10)
[2017-10-20] MEDS ORDERED: MUPIROCIN 2% OINT 22 GM TUBE ONE (08:10)
[2017-10-20] MEDS ORDERED: BACITRACIN 50,000 UNIT VIAL ONE (08:11)
[2017-10-20] MEDS ORDERED: SODIUM CHLORIDE 0.9% 1000ML 1,000 ML IV SCH ×2 (10:22→11:00)
[2017-10-20] MEDS ORDERED: HYDROCODONE/APAP 7.5MG-325MG 1 EA TAB PO PRN ×2 (10:30→11:00)
[2017-10-20] MEDS ORDERED: ZOLPIDEM TARTRATE 5 MG TAB PO PRN ×2 (10:30→21:00)
[2017-10-20] MEDS ORDERED: DIPHENHYDRAMINE HCL INJ 50 MG/ML VIAL IM/IV PRN ×2 (10:30→11:00)
[2017-10-20] MEDS ORDERED: ONDANSETRON HCL INJ 2 MG/ML VIAL IV PRN ×2 (10:30→11:00)
[2017-10-20] MEDS ORDERED: HYDROCODONE/APAP 5MG-325MG TAB PO PRN (10:30)
[2017-10-20] MEDS ORDERED: DOCUSATE SODIUM 100 MG CAP PO PRN ×2 (10:30→11:00)
[2017-10-20] MEDS ORDERED: KETOROLAC TROMETHAMINE 30 MG/ML VIAL IV PRN ×2 (10:30→11:00)
[2017-10-20] MEDS ORDERED: PROMETHAZINE HCL (IM) 25 MG/ML VIAL INJ PRN (10:30)
[2017-10-20] MEDS ORDERED: ACETAMINOPHEN 650 MG SUPP PR PRN ×2 (10:30→11:00)
[2017-10-20] MEDS ORDERED: PROMETHAZINE HCL (IM) 25 MG/ML VIAL IM PRN (11:00)
--- NOTE | 2017-10-20 11:08 | Diagnostic Imaging Report ---
PROCEDURE: X-RAY RIGHT KNEE, ONE OR TWO VIEWS COMPARISON: None. INDICATIONS:STATUS POST RIGHT KNEE SURGERY FINDINGS: See conclusion. CONCLUSION: Status post total right knee replacement with surrounding soft tissue swelling, air and ej consistent with recent surgery. No periprosthetic displaced fractures. Dictated by: Дмитрий Mendez M.D. on 10/20/2017 at 11:11 Electronically approved by: Дмитрий Mendez M.D. on 10/20/2017 at 11:11
[2017-10-20] MEDS ORDERED: ACETAMINOPHEN 1000 MG/100 ML IV SCH (12:00)
[2017-10-20] MEDS ORDERED: CEFAZOLIN SOD 1 GM/NS 50ML 50 ML IV SCH ×2 (14:00)
[2017-10-20] MEDS ORDERED: SODIUM CHLORIDE 0.9% 1000ML 1,000 ML ONE (14:01)
--- NOTE | 2017-10-20 14:14 | Operative Report ---
DATE OF PROCEDURE: October 20, 2017 PLATER PRINTED CIRCUIT BOARD PANELS: Huy Jacinto PA-C The patient was brought to the operating room for induction of anesthesia. Throughout this case, my PA's assistance was necessary for retraction of soft tissue and positioning of the extremity. This allows for efficient and technically successful execution of the operation and is considered medically necessary. PREOPERATIVE DIAGNOSIS: Osteoarthritis, right knee. POSTOPERATIVE DIAGNOSIS: Osteoarthritis, right knee. PROCEDURE: Right total knee arthroplasty. INDICATIONS: The patient is a 72-year-old lady with end-stage varus arthritis in her right knee. She has failed conservative management and would like to proceed with a right total knee replacement. The risks and benefits have been explained. She states she understands and wishes to proceed. DESCRIPTION OF PROCEDURE: The patient was brought to the operating room and placed under general anesthetic. She received prophylactic antibiotics, a regional block and tranexamic acid in the holding area. Her right lower extremity was prepped and draped in a sterile manner. A preoperative time out was performed. The extremity was exsanguinated and a proximal tourniquet was inflated to 300 mmHg. An anterior approach with a medial parapatellar arthrotomy was performed. Clear synovial fluid was removed from the joint. Soft tissue releases were performed to bring the knee up into flexion with the patella everted. Marginal osteophytes, meniscal remnants and the cruciate ligaments were sacrificed. A [employer] Sandy II posterior stabilized knee system was used throughout the case. An extramedullary cutting guide was used to resect the proximal tibia. A +2-mm cut was necessary due to the excessive medial wear. The tibial baseplate was sized to a #3 component. The central fin punch was impacted and attention was directed towards the distal femur. An intramedullary cutting guide was used to resect the distal femur in 6 degrees of valgus and rotation referenced off of a combination of landmarks including [place] line, the epicondylar axis and the posterior condyles. The femoral component was a size #4. The component with the trial component was placed and a notch cut was made. Trial reductions were performed. A 9 mm posterior stabilized tibial insert was felt to provide optimal soft tissue balancing. The patella was then resurfaced with a 29 mm x 9 mm patellar button. The thickness was checked before and after and was right at 20 mm. Patellar tracking was noted to be concentric. The trial implants were then removed. A 100 mL premixed pericapsular GRETA injection was placed into the soft tissue. The knee was thoroughly irrigated with a shower-tip pulsatile lavage. The components were cemented into place using a single mix of [place]acos cement preloaded with antibiotics. Care was taken to remove extravasated cement. The wound was further irrigated while the cement cured. The arthrotomy was then closed using interrupted #1 Ethibond. The knee was put through flexion and extension to ensure a secure closure. The skin was closed with subcuticular Vicryl and ej. A sterile bandage was applied. The patient was extubated and transported to the recovery room in stable condition. Blood loss was minimal. At the end of the procedure, all needle and sponge counts were correct. Job#: [id number] FALGUNI
[2017-10-20 14:43] VITALS: BP 141/65
[2017-10-20 14:51] VITALS: BP 141/65
[2017-10-20 16:14] VITALS: BP 124/59
[2017-10-20] MEDS ORDERED: MIDAZOLAM HCL 2 MG/2 ML VIAL ONE (16:25)
[2017-10-20] MEDS ORDERED: FENTANYL CITRATE/PF 100MCG/2 ML INJ ONE (16:25)
[2017-10-20] MEDS: ACETAMINOPHEN 1000 MG/100 ML IV SCH (16:36)
[2017-10-20] MEDS: CEFAZOLIN SOD 1 GM VIAL IV SCH (16:36)
[2017-10-20] MEDS ORDERED: DORZOLAMIDE HCL (OPTH) 10 ML BOTTLE OP SCH (17:00)
[2017-10-20] MEDS ORDERED: ASPIRIN 325 MG TAB PO SCH ×2 (17:00)
[2017-10-20] MEDS ORDERED: CELECOXIB 100 MG CAP PO SCH ×2 (17:00)
[2017-10-20] MEDS ORDERED: SEVOFLURANE INHAL SOLN 250 ML PEN BTL ONE (18:14)
[2017-10-20] MEDS ORDERED: LIDOCAINE HCL 2% LOCAL INJ 5 ML SDV VIAL INJ ONE (18:14)
[2017-10-20] MEDS ORDERED: ETOMIDATE 2 MG/ML 10 ML INJ IV ONE (18:14)
[2017-10-20] MEDS ORDERED: LIDOCAINE 2% /EPINEPHRINE 20 ML SDV INJ ONE (18:17)
[2017-10-20] MEDS ORDERED: ROPIVACAINE 0.5% 5 MG/ML 30 ML SDV ONE (18:17)
[2017-10-20] MEDS ORDERED: RIVAROXABAN 10 MG TABLET PO SCH (18:30)
[2017-10-20 20:00] VITALS: BP 110/54
[2017-10-20] MEDS ORDERED: LATANOPROST(OPTH) 2.5 ML BTL OU SCH (21:00)
[2017-10-20] MEDS ORDERED: SIMVASTATIN 20 MG TAB PO SCH (21:00)
[2017-10-20] MEDS: DORZOLAMIDE HCL (OPTH) 10 ML BOTTLE OP SCH (21:40)
[2017-10-21] VITALS: BP 105/52
[2017-10-21] MEDS: CEFAZOLIN SOD 1 GM VIAL IV SCH ×2 (00:28→08:30)
[2017-10-21 04:16] VITALS: BP 90/47
--- NOTE | 2017-10-21 05:35 | Consultation ---
DATE OF CONSULTATION: October 21, 2017 REASON FOR CONSULTATION: Medical management. HISTORY OF PRESENT ILLNESS: Patient is a 72-year-old lady status post total knee arthroplasty of the right knee, who has minimal pain and has slept well. Consulted for medical management. REVIEW OF SYSTEMS: Denies any chest pain, fever, chills, nausea, vomiting, headache, shortness of breath, or dizziness. PAST MEDICAL HISTORY: Significant for hyperlipidemia and history of AFib. MEDICATIONS: See JUN. ALLERGIES: SEE JUN. SOCIAL HISTORY: Nonsmoker and nondrinker. FAMILY HISTORY: Hypertension. PHYSICAL EXAMINATION VITALS: 98.6, blood pressure 102/66, pulse of 80, sats 98%. GENERAL: No apparent distress. Lying in bed. NECK: Supple. CARDIOVASCULAR: Regular rate and rhythm. LUNGS: Clear to auscultation bilaterally. ABDOMEN: Good bowel sounds. Soft and nontender. EXTREMITIES: No clubbing or cyanosis. NEUROLOGIC: Nonfocal. ASSESSMENT 1. Status post total knee arthroplasty: Continue with physical therapy. 2. Knee pain: Continue physical therapy. 3. Anemia: Check a CBC. 4. History of atrial fibrillation: Continue with her amiodarone. 5. Hyperlipidemia: Continue with her cholesterol medicine. Please see hospital chart for full details. Job#: [id number] FALGUNI
[2017-10-21] MEDS: ACETAMINOPHEN 1000 MG/100 ML IV SCH ×2 (05:59)
[2017-10-21 06:51] LABS: HEMATOCRIT 32.1 % (34.2-44.1); HEMOGLOBIN 10.6 g/dL (12.0-16.0)
[2017-10-21] MEDS ORDERED: FAMOTIDINE 20 MG TAB PO SCH (07:30)
[2017-10-21 07:57] VITALS: BP 113/56
[2017-10-21] MEDS: DORZOLAMIDE HCL (OPTH) 10 ML BOTTLE OP SCH (08:39)
[2017-10-21 08:44] VITALS: BP 113/56
[2017-10-21] MEDS ORDERED: POTASSIUM CHLORIDE 10 MEQ TABCR PO SCH (09:00)
[2017-10-21] MEDS ORDERED: AMIODARONE HCL 200 MG TAB PO SCH (09:00)
[2017-10-21] MEDS ORDERED: CELECOXIB 200 MG CAP PO SCH (09:00)
[2017-10-21] MEDS ORDERED: ACETAMINOPHEN 1000 MG/100 ML IV PRN ×2 (10:30)
[2017-10-21] MEDS: HYDROCODONE/APAP 5MG-325MG TAB PO PRN ×2 (10:36→15:20)
--- NOTE | 2017-10-21 10:51 | Discharge Summary ---
CHIEF COMPLAINT: Right knee pain. HISTORY OF PRESENT ILLNESS: This patient is a 72-year-old female who complains of right knee pain for many years. She has treated this with injections, Tylenol and modification of activities. She cannot take NSAIDs because she is on anticoagulants. Her x-rays show severe varus OA. She presents wanting to consider a right total knee replacement. The risks and benefits of the procedure were explained. The patient states she understands and wishes to proceed. HOSPITAL COURSE: The patient underwent a right total knee replacement without complications. She was then transferred to the recovery room and the floor in stable condition. She was followed by Dr. Santos for postop medical management. She remained stable throughout the hospital stay. She did well with physical therapy. She was able to be discharged home on postop day 1. PRINCIPAL DIAGNOSIS: Osteoarthritis of the right knee. PRINCIPAL PROCEDURE: Right total knee replacement. DISCHARGE INSTRUCTIONS: The patient was discharged home with home health and physical therapy arranged. She was to be weightbearing as tolerated with a rolling walker. She was to resume her home medications as directed including her anticoagulant for thromboprophylaxis. She was to use her CPM machine at home and was instructed to work on home exercises. She was to follow up in our office in roughly 8 to 10 days. Dictated by: Huy Jacinto PA-C MIKE ZAYAS MD Job#: [id number]
[2017-10-21] MEDS ORDERED: NORCO 7.5-3251 EACH PO (11:08)
[2017-10-21 12:47] VITALS: BP 122/76
== END 2017-10-21 15:30 | disposition home health service (06) ==
LOC: OR 07:00 → PACU V 10:24 → INTOOBSV 10:24 → OR 10:35 → PACU V 10:40 → UNDOADMIN 10:40 → MED/SURG 14:10
PROVIDERS: ADMIT Specialist; ATTEND Specialist
DX: M17.11 Unilateral primary osteoarthritis, right knee (principal); K21.9 Gastro-esophageal reflux disease without esophagitis; D64.9 Anemia, unspecified; I48.91 Unspecified atrial fibrillation; Z79.01 Long term (current) use of anticoagulants; E78.5 Hyperlipidemia, unspecified
CPT/HCPCS: 27447; 36415; 73560; 85014; 85018; 86850; 86900; 86920; 97116; 97139; 97161; 97530 ×2; C1713; G0378 ×2; J0171; J0690 ×2; J1100; J1885; J2001 ×2; J2250; J2795; J7030

== ENCOUNTER → 2018-05-04 | Outpatient (CLI) | payer MEDICARE ==
[~2018-05-04] MED LIST changes: +NORCO 7.5-3251 EACH PO
--- NOTE | 2018-05-04 10:28 | Diagnostic Imaging Report ---
EXAM: CT Abdomen and Pelvis WITHOUT contrast INDICATION: ^[id number] ^[id number] ^CALCULUS OF KIDNEY COMPARISON: CT dated 05/27/2017 TECHNIQUE: Abdomen and pelvis were scanned utilizing a multidetector helical scanner from the lung base to the pubic symphysis without administration of IV contrast. Absence of intravenous contrast decreases sensitivity for detection of focal lesions and vascular pathology. Coronal and sagittal reformations were obtained. Routine protocol was performed. IV CONTRAST: None ORAL CONTRAST: Water COMPLICATIONS: None RADIATION DOSE: Total DLP: 428.59 mGy*cm Estimated effective dose: (DLP x 0.015 x size factor) mSv CTDIvol has been reviewed. It is below the limits set by the Radiation Protocol Committee (RPC). FINDINGS: LINES and TUBES: None. LOWER THORAX: Unchanged 6 mm right lower lobe nodule (series 3, image 3). Mild bibasilar scarring. Atherosclerotic calcification of the visualized coronary arteries. HEPATOBILIARY: Unenhanced liver is unremarkable. No biliary ductal dilation. GALLBLADDER: Surgically absent. SPLEEN: No splenomegaly. PANCREAS: No focal masses or ductal dilatation. ADRENALS: No adrenal nodules KIDNEYS/URETERS: Markedly scarred left kidney, especially in the inferior pole. Multiple adjacent hypodensities in the midpole with coarse dystrophic calcification. 0.8 cm left inferior pole and 0.6 cm midpole calculi. Unchanged mild dilatation of the upper pole collecting system. Multiple mildly hyperdense subcentimeter right renal lesions are seen which are too small and cannot be characterized on this unenhanced study. No right renal stone. No change in mild hydronephrosis, mostly in upper pole collecting system. Multiple subcentimeter calcifications along the course of the bilateral ureters are probably phleboliths without evidence of hydroureter. GI TRACT: No abnormal distention, wall thickening, or evidence of bowel obstruction. Scattered colonic diverticula without evidence of diverticulitis. Small hiatal hernia. Appendix is normal. PELVIC ORGANS/BLADDER: Hysterectomy. Bladder is unremarkable. Numerous pelvic phleboliths. LYMPH NODES: No lymphadenopathy. VESSELS: Unremarkable. PERITONEUM / RETROPERITONEUM: No free air or fluid. BONES: Lumbar spine scoliosis with multilevel advanced degenerative changes. SOFT TISSUES: Fat-containing supraumbilical hernia with neck measuring approximately 4.8 cm. IMPRESSION: 1. No significant interval change in the appearance of the kidneys when compared to CT dated 05/27/2017. Limited for evaluation of renal parenchyma without intravenous contrast. 2. Markedly scarred left kidney. Left renal nonobstructive calculi, measuring up to 0.8 cm. 3. Unchanged mildly dilated bilateral collecting system, especially the superior poles without hydroureter or definite evidence of obstructive urolithiasis. 4. Fat-containing supraumbilical ventral hernia. 5. Unchanged 6 mm right lower lobe nodule Signed by: Dr. Nagi Maguire MD on 05/04/2018 10:25 AM
== END ==
LOC: CT 09:24
PROVIDERS: ATTEND Urology
DX: N20.0 Calculus of kidney (principal)
CPT/HCPCS: 74176

== ENCOUNTER → 2018-10-22 | Day surgery (SDC) | payer MEDICARE ==
[2018-10-20 12:19] LABS: BASOPHILS % 0.7 % (0.0-1.0); EOSINOPHILS # (AUTO) 0.2 (0.0-0.4); EOSINOPHILS % 3.6 % (0.0-6.0); HEMATOCRIT 35.8 % (34.2-44.1); HEMOGLOBIN 12.1 g/dL (12.0-16.0); LYMPHOCYTES % 15.7 % (18.0-39.1); MEAN CORPUSCULAR HEMOGLOBIN 28.4 pg (28-32); MEAN CORPUSCULAR HGB CONC 33.8 g/dL (31-35); MONOCYTES # (AUTO) 0.5 (0.2-0.8); MONOCYTES % 8.9 % (4.4-11.3); NEUTROPHILS # (AUTO) 4.3 (2.1-6.9); NEUTROPHILS % 70.8 % (38.7-80.0); PLATELET COUNT 160 x10e3/uL (140-360); RED BLOOD COUNT 4.26 x10e6/uL (3.6-5.1); RED CELL DISTRIBUTION WIDTH 13.2 % (11.7-14.4)
--- NOTE | 2018-10-20 13:13 | Diagnostic Imaging Report ---
Exam: Abdominal film Clinical History: Preoperative study for urological procedure Comparison: CT abdomen and pelvis without contrast 05/04/2018 DISCUSSION: Irregular left renal cortical calcification measuring 1.3 cm projects over the interpolar region. 4-5 mm calculi projecting over the interpolar region and lower pole are unchanged compared to prior CT. No suspicious calcifications project over the right renal shadow. Multiple pelvic phleboliths. Bowel gas pattern is nonobstructive. No mass effect or organomegaly. Regional skeletal structures intact with levoscoliotic curvature of the lumbar spine. IMPRESSION: Left renal collecting system and cortical calculi, grossly unchanged compared to prior CT abdomen and pelvis. Signed by: Dr. Дмитрий Mendez M.D. on 10/20/2018 1:09 PM
--- NOTE | 2018-10-20 13:14 | Diagnostic Imaging Report ---
EXAMINATION: PA and lateral views of the chest. COMPARISON: 05/13/2017 CLINICAL HISTORY: Preoperative study for urological procedure DISCUSSION: Lungs are well-inflated and without focal airspace consolidation, pleural effusion, or pneumothorax. Stable cardiomediastinal contour with scoliotic curvature of the thoracic spine. No pulmonary edema. Right upper quadrant surgical clips compatible with cholecystectomy. No acute osseous abnormality. IMPRESSION: No acute cardiopulmonary abnormalities. Signed by: Dr. Дмитрий Mendez M.D. on 10/20/2018 1:11 PM
[~2018-10-22] MED LIST changes: +ASPIR 8181 MG; +ASPIRIN 81 MG CHEW TAB PO ONE; +CALCIUM; +CEFTRIAXONE SOD 1 GM/NS 50 ML 50 ML IV ONE; +CITRIC ACID/SODIUM CITRATE 30 ML UDC ONE; +DEXAMETHASONE SOD PHOS INJ 4 MG/ML VIAL ONE; +DORZOLAMIDE HCL10 ML OP; +LATANOPROST2.5 ML OP; +LIDOCAINE HCL 2% LOCAL INJ 5 ML SDV VIAL INJ ONE; +ONDANSETRON HCL INJ 2MG/ML 2ML 2 MG/ML VIAL ONE; +PANTOPRAZOLE SO40 MG PO; +POTASSIUM CITRATE PO; +PROPOFOL IV EMULSION 10 MG/ML 20 ML VIAL ONE; +SEVOFLURANE INHAL SOLN 250 ML PEN BTL ONE; +VITAMIN D3
--- OUTSIDE RECORDS SUMMARY | 2018-10-22 07:45 | XMS REPORT | Clinical Summary ---
Author Author KATHERINE [facility] Organization [facility] Address Unknown Phone Unavailable Care Team Providers Care Insurance Operations Rep Name Role Phone Elda Harper PCP Allergies No Known Allergies Medications End Date Status Medication Sig Dispensed Refills Start Date Active amiodarone (PACERONE) 200 Take 200 mg 0 MG tablet by mouth daily. Active metoprolol (TOPROL-XL) 25 Take 25 mg by 0 MG 24 hr tablet mouth daily. Active simvastatin (ZOCOR) 20 MG Take 20 mg by 0 tablet mouth nightly. Active potassium chloride Take 10 mEq 0 (KLOR-CON) 10 MEQ CR by mouth tablet daily. Active cholecalciferol, vitamin Take 5,000 0 D3, 5,000 unit Tab Units by mouth daily. Active latanoprost (XALATAN) 1 drop 0 0.005 % ophthalmic nightly. solution Active dorzolamide (TRUSOPT) 2 % 1 drop 3 0 ophthalmic solution (three) times daily. Active famotidine (PEPCID) 10 MG Take 10 mg by 0 tablet mouth 2 (two) times daily. Active acetaminophen-codeine Take 1 tablet 0 (TYLENOL #3) 300-30 mg by mouth per tablet every 4 (four) hours as needed for Pain. Active docusate sodium (COLACE) Take 100 mg 0 100 MG capsule by mouth 2 (two) times daily. Active rivaroxaban (XARELTO Take 15 mg by 0 ORAL) mouth . Active pantoprazole (PROTONIX) Take 1 tablet 60 tablet 1 40 MG tablet (40 mg total) 8 by mouth 2 (two) times daily. 11/21/2017 Discontinued rivaroxaban (XARELTO) 20 Take by mouth 0 mg Tab tablet daily with dinner. 02/03/2018 Discontinued pantoprazole (PROTONIX) Take 1 tablet 60 tablet 0 40 MG tablet (40 mg total) 8 by mouth 2 (two) times daily. 02/06/2018 polyethylene glycol Take 17 g by 14 each 0 (GLYCOLAX) 17 gram packet mouth daily 8 as needed (Constipation ) for up to 3 days. Active Problems Problem Noted Date Left sided chest pain 02/02/2018 Precordial pain 11/18/2017 Epigastric abdominal pain 11/18/2017 Overview: Added automatically from request for surgery [id number] Atrial fibrillation Hypertension Hyperlipidemia Encounters Care Team Description Date Type Specialty Herminia Chaudhari MD Gross hematuria (Primary Dx); Hematochezia 09/11/2018 Emergency Emergency Medicine 09/11/2018 Orders Only General Internal Medicine Mumtaz Larson MD Anani, Constance E., MD Hussain, Feroze Abid, MD Left sided chest pain (Primary Dx); History of hypertension; History of hyperlipidemia; Positive D dimer 02/01/2018 Emergency General Internal Medicine - 02/03/2018 02/01/2018 Orders Only General Internal Medicine Lan Kirkland MD 11/20/2017 Anesthesia Event Hayley Murdock MD UPPER ENDOSCOPY 11/20/2017 Surgery Jazmín Dhaliwal MD Precordial pain (Primary Dx); Acute pain of left shoulder; Status post total right knee replacement; BRBPR (bright red blood per rectum); Epigastric discomfort; Traumatic hematoma of popliteal region, right, initial encounter; Abnormal CT scan, chest; Lung nodule < 6cm on CT; Atelectasis; Epigastric abdominal pain 11/18/2017 Emergency General Internal Medicine - 11/21/2017 after 10/21/2017 Social History Date Tobacco Use Types Packs/Day Years Used Never Smoker Smokeless Tobacco: Never Used Alcohol Use Drinks/Week oz/Week Comments No Sex Assigned at Date Recorded Not on file Industry Job Start Date Occupation Not on file Not on file Not on file Travel End Travel History Travel Start No recent travel history available. Last Filed Vital Signs Time Taken Vital Sign Reading 09/11/2018 3:58 AM CDT Blood Pressure 148/96 09/11/2018 3:58 AM CDT Pulse 66 09/10/2018 11:08 PM CDT Temperature 36.6 C (97.9 F) 09/11/2018 3:58 AM CDT Respiratory Rate 18 09/10/2018 11:08 PM CDT Oxygen Saturation 98% - Inhaled Oxygen - Concentration 09/10/2018 11:08 PM CDT Weight 70.3 kg (155 lb) 09/10/2018 11:08 PM CDT Height 162.6 cm (5' 4") 09/10/2018 11:08 PM CDT Body Mass Index 26.61 Plan of Treatment Not on file Procedures Comments Procedure Name Priority Date/Time Associated Diagnosis REPORT OF PROCEDURE - 09/15/2018 ENDOSCOPY SCAN 3:15 PM CDT TRANSFUSION SERVICE 09/12/2018 REPORT - SCAN 6:02 PM CDT OCCULT BLOOD, STOOL STAT 09/11/2018 3:04 AM CDT ECG 12-LEAD Routine 09/11/2018 3:03 AM CDT Procedure Note - Interface, External Ris In - 09/11/2018 3:03 AM CDT Ventricula r Rate 58 BPM Atrial Rate 58 BPM P-R Interval 180 ms QRS Duration 108 ms Q-T Interval 458 ms QTC Calculatio n(Bazett) 449 ms P [place] 41 degrees R [place] 1 degrees T [place] 40 degrees Sinus bradycardi a Minimal voltage criteria for LVH, may be normal variant Borderline ECG When compared with ECG of 8 23:26, PREVIOUS ECG IS PRESENT ECG 12-LEAD STAT 09/11/2018 3:03 AM CDT URINALYSIS W/ REFLEX STAT 09/11/2018 URINE CULTURE 2:02 AM CDT CBC W/PLT COUNT & AUTO STAT 09/11/2018 DIFFERENTIAL 2:01 AM CDT TYPE AND SCREEN, Routine 09/11/2018 AUTOMATED 2:01 AM CDT PROTHROMBIN TIME/INR STAT 09/11/2018 2:01 AM CDT LACTIC ACID, VENOUS STAT 09/11/2018 2:01 AM CDT LIPASE STAT 09/11/2018 2:01 AM CDT COMPREHENSIVE METABOLIC STAT 09/11/2018 PANEL 2:01 AM CDT CBC W/PLT COUNT & AUTO STAT 09/11/2018 DIFFERENTIAL 2:01 AM CDT RHYTHM STRIP - SCAN 02/04/2018 3:53 PM CDT TROPONIN I STAT 02/02/2018 8:28 AM CDT TROPONIN I STAT 02/02/2018 5:[address] CHEST PE TEST DESIGN STAT 02/02/2018 12:47 AM CDT XR CHEST 1 VIEW STAT 02/01/2018 PORTABLE/BEDSIDE 11:55 PM CDT CBC W/PLT COUNT & AUTO STAT 02/01/2018 DIFFERENTIAL 11:31 PM CDT D-DIMER STAT 02/01/2018 11:31 PM CDT TROPONIN I STAT 02/01/2018 11:31 PM CDT PHOSPHORUS STAT 02/01/2018 11:31 PM CDT MAGNESIUM STAT 02/01/2018 11:31 PM CDT BASIC METABOLIC PANEL (7) STAT 02/01/2018 11:31 PM CDT CBC W/PLT COUNT & AUTO STAT 02/01/2018 DIFFERENTIAL 11:31 PM CDT ECG 12-LEAD STAT 02/01/2018 11:26 PM CDT ECG 12-LEAD Routine 02/01/2018 11:26 PM CDT Procedure Note - Interface, External Ris In - 02/01/2018 11:27 PM CDT Ventricula r Rate 64 BPM Atrial Rate 64 BPM P-R Interval 182 ms QRS Duration 98 ms Q-T Interval 422 ms QTC Calculatio n(Bazett) 435 ms P [place] 48 degrees R [place] -12 degrees T [place] 25 degrees Normal sinus rhythm Voltage criteria for left ventricula r hypertroph y Cannot rule out Septal infarct , age undetermin ed Abnormal ECG When compared with ECG of 8 09:09, PREVIOUS ECG IS PRESENT RHYTHM STRIP - SCAN 11/23/2017 2:12 PM CDT STRESS-TEST SCANNED 11/23/2017 2:12 PM CDT REPORT OF PROCEDURE - 11/20/2017 ENDOSCOPY URL 2:50 PM CDT UPPER ENDOSCOPY 11/20/2017 Epigastric abdominal pain 2:30 PM CDT ECHOCARDIOGRAM REPORT - 11/19/2017 SCAN 1:20 PM CDT NM MYOCARDIAL PERFUSION Routine 11/19/2017 SPECT, PHARM(LEXISCAN) 9:46 AM CDT CBC W/PLT COUNT & AUTO Routine 11/19/2017 DIFFERENTIAL 1:38 AM CDT MAGNESIUM Routine 11/19/2017 1:38 AM CDT COMPREHENSIVE METABOLIC Routine 11/19/2017 PANEL 1:38 AM CDT CBC W/PLT COUNT & AUTO Routine 11/19/2017 DIFFERENTIAL 1:38 AM CDT TROPONIN I STAT 11/19/2017 1:38 AM CDT TROPONIN I STAT 11/18/2017 6:06 PM CDT 2D ECHO W/ DOPPLER Pending 11/18/2017 (CW/PW/COLOR) Discharge 3:35 PM CDT URINALYSIS W/ REFLEX Routine 11/18/2017 URINE CULTURE 2:03 PM CDT TROPONIN I STAT 11/18/2017 12:53 PM CDT PERIPHERAL VASCULAR 11/18/2017 REPORT - SCAN 11:30 AM CDT XR CHEST 1 VIEW STAT 11/18/2017 PORTABLE/BEDSIDE 10:[address] CHEST PE TEST DESIGN STAT 11/18/2017 10:43 AM CDT VENOUS DOPPLER LEG, RIGHT STAT 11/18/2017 10:39 AM CDT POCT-CK-MB Routine 11/18/2017 9:42 AM CDT POCT-TROPONIN I Routine 11/18/2017 9:31 AM CDT CBC W/PLT COUNT & AUTO STAT 11/18/2017 DIFFERENTIAL 9:23 AM CDT CREATINE KINASE (CK) STAT 11/18/2017 9:23 AM CDT PROTHROMBIN TIME/INR STAT 11/18/2017 9:23 AM CDT B-TYPE NATRIURETIC FACTOR STAT 11/18/2017 (BNP) 9:23 AM CDT LIPASE STAT 11/18/2017 9:23 AM CDT HEPATIC FUNCTION PANEL STAT 11/18/2017 9:23 AM CDT BASIC METABOLIC PANEL (7) STAT 11/18/2017 9:23 AM CDT CBC W/PLT COUNT & AUTO STAT 11/18/2017 DIFFERENTIAL 9:23 AM CDT ECG 12-LEAD STAT 11/18/2017 9:09 AM CDT after 10/21/2017 Results * EKG-SCANNED (09/15/2018 3:15 PM CDT) Narrative Performed At * TRANSFUSION SERVICE REPORT - SCAN (09/12/2018 6:02 PM CDT) Narrative Performed At * Occult blood x 1, stool (09/11/2018 3:04 AM CDT) Occult blood Positive (A) Negative [facility] Specimen Stool Performing Organization Address City/State/Zipcode Phone Number [facility] [address] [place] [address] * ECG 12 lead (09/11/2018 3:03 AM CDT) Only the most recent of 3 results within the time period is included. Specimen Narrative Performed At Ventricular Rate 58 BPM GE MUSE Atrial Rate 58 BPM P-R Interval 180 ms QRS Duration 108 ms Q-T Interval 458 ms QTC Calculation(Bazett) 449 ms P [place] 41 degrees R [place] 1 degrees T [place] 40 degrees Sinus bradycardia Minimal voltage criteria for LVH, may be normal variant Borderline ECG Procedure Note Interface, External Ris In - 09/11/2018 3:46 PM CDT Ventricular Rate 58 BPM Atrial Rate 58 BPM P-R Interval 180 ms QRS Duration 108 ms Q-T Interval 458 ms QTC Calculation(Bazett) 449 ms P [place] 41 degrees R [place] 1 degrees T [place] 40 degrees Sinus bradycardia Minimal voltage criteria for LVH, may be normal variant Borderline ECG Performing Organization Address [facility] Phone Number GE MUSE * Urinalysis w/Microscopic + Reflex to Culture (09/11/2018 2:02 AM CDT) Only the most recent of 2 results within the time period is included. Color, UA Light Yellow [facility] Clarity, UA Clear [facility] Specific [place], UA 1.011 1.001 - 1.035 [facility] pH, UA 5.0 5.0 - 8.0 [facility] Protein, UA Negative Negative [facility] Glucose, UA Negative Negative [facility] Ketones, UA Negative Negative [facility] Bilirubin, UA Negative Negative [facility] Blood, UA Small (A) Negative [facility] Nitrite, UA Negative Negative [facility] Leukocytes, UA Negative Negative [facility] Urobilinogen, UA <1.0 0.2 - 1.0 mg/dL [facility] RBC, UA <1 /HPF [facility] WBC, UA 2 /HPF [facility] Bacteria, UA Rare [facility] Mucus Rare [facility] Squam Epithel, UA 2 /HPF [facility] Specimen Source [facility] Specimen Urine Performing Organization Address [facility] Phone Number [facility] [address] [place] [address] * Type and screen, automated (09/11/2018 2:01 AM CDT) ABORh B POSITIVE [facility] Antibody Screen NEGATIVE [facility] Specimen Blood Performing Organization Address [facility] Phone Number [facility] [address] [place], [place] [id number] H[facility] * CBC with platelet count + automated diff (09/11/2018 2:01 AM CDT) Only the most recent of 4 results within the time period is included. WBC 6.8 4.0 - 10.0 K/L [facility] RBC 4.69 4.00 - 5.00 M/L [facility] Hemoglobin 13.1 12.0 - 15.5 GM/DL [facility] Hematocrit 40.7 36.0 - 46.0 % [facility] MCV 86.8 82.0 - 99.[address] [facility] MCH 27.9 27.0 - 33.[address] [facility] MCHC 32.2 32.0 - 36.0 GM/DL [facility] RDW 13.6 12.0 - 15.0 % [facility] Platelets 175 150 - 430 K/CU MM [facility] MPV 10.4Comment: MPV-Approximately 6.0 - 11.[address] [facility] 20% positive bias due to method change. nRBC 0 0 - 0 /100 WBC [facility] % Neutros 60 % [facility] % Lymphs 25 % [facility] % Monos 10 % [facility] % Eos 3 % [facility] % Baso 1 % [facility] # Neutros 4.10 1.80 - 8.00 K/L [facility] # Lymphs 1.68 1.48 - 4.50 K/L [facility] # Monos 0.69 0.00 - 1.30 K/L [facility] # Eos 0.23 0.00 - 0.50 K/L [facility] # Baso 0.04 0.00 - 0.20 K/L [facility] Immature 1 (H) 0 - 0 % [facility] Granulocytes-Relative Specimen Blood Performing Organization Address [facility]/Zipcode Phone Number [facility] [address] [place] [address] * Lactic acid, venous (09/11/2018 2:01 AM CDT) Lactate, Venous 0.5Comment: Specimen slightly 0.5 - 2.2 mmol/L [facility] hemolyzed Specimen Blood Performing Organization Address [facility]/Zipcode Phone Number [facility] [address] [place] [address] * PT/INR (09/11/2018 2:01 AM CDT) Only the most recent of 2 results within the time period is included. Protime 16.0 (H) 11.8 - 14.4 seconds [facility] INR 1.3 1.2 - 1.5 [facility] Specimen Blood Narrative Performed At RECOMMENDED COUMADIN/WARFARIN INR THERAPY RANGES [facility] STANDARD DOSE: 2.0 - 3.0 Includes: PROPHYLAXIS for venous thrombosis, systemic embolization; TREATMENT for venous thrombosis and/or pulmonary embolus. HIGH RISK: Target INR is 2.5-3.5 for patients with mechanical heart valves. Performing Organization Address [facility] Phone Number [facility] [phone] [place] [id number] * Lipase (09/11/2018 2:01 AM CDT) Only the most recent of 2 results within the time period is included. Lipase 79 (H) 8 - 78 U/L [facility] Specimen Blood Performing Organization Address City/[facility] Phone Number [facility] [address] [place] [address] * Comprehensive metabolic panel (09/11/2018 2:01 AM CDT) Only the most recent of 2 results within the time period is included. Protein, Total 7.4 6.0 - 8.5 gm/dL [facility] Albumin 4.5 3.5 - 5.0 g/dL [facility] Alkaline Phosphatase 113 30 - 115 U/L [facility] Total Bilirubin 0.5 0.1 - 1.3 mg/dL [facility] Sodium 140 135 - 148 meq/L [facility] Potassium 4.1 3.5 - 5.5 meq/L [facility] Chloride 105 98 - 106 meq/L [facility] CO2 24 20 - 31 meq/L [facility] BUN 30 (H) 10 - 26 mg/dL [facility] Creatinine 1.20 0.50 - 1.20 mg/dL [facility] Glucose 105 70 - 110 mg/dL [facility] Calcium 10.3 8.5 - 10.5 mg/dL [facility] AST 13 5 - 40 U/L [facility] ALT 16 6 - 50 U/L [facility] EGFR Comment: INSUFFICIENT CLINICAL mL/min/1.73 sq m [facility] DATA TO CALCULATE ESTIMATED GFR. Specimen Blood Performing Organization Address [facility]/Zipcode Phone Number [facility] [address] [place] [address] * RHYTHM STRIP - SCAN (02/04/2018 3:53 PM CDT) Only the most recent of 2 results within the time period is included. Narrative Performed At * Troponin I (02/02/2018 8:28 AM CDT) Only the most recent of 6 results within the time period is included. Troponin I 0.02 0.00 - 0.15 ng/mL [facility] Specimen Blood Narrative Performed At Troponin I (TnI) levels must be interpreted in the context of the presenting [facility] symptoms and the clinical findings. Elevated TnI levels indicate myocardial damage, but are not specific for ischemic heart disease. Elevated TnI levels are seen in patients with other cardiac conditions (including myocarditis and congestive heart failure), and slight TnI elevations occur in patients with other conditions, including sepsis, renal failure, acidosis, acute neurological disease, and persistent tachyarrhythmia. Performing Organization Address [facility] Phone Number [facility] [address] [place] [address] * CT chest PE test design (02/02/2018 12:47 AM CDT) Only the most recent of 2 results within the time period is included. Specimen Narrative Performed At FINAL REPORT [employer] [facility] Comparison: Indication: 72-year-old female with acute chest pain, hypoxia, and shortness of breath clinically suspicious for acute pulmonary embolism. Technique: Precontrast axial images were obtained at pulmonary trunk level for the purpose of monitoring subsequent IV contrast.Postcontrast axial images of the chest were obtained from above the arch level to the lower chest at maximum enhancement of the pulmonary artery. Delayed axial images of the entire chest were obtained subsequently.This exam was performed according to the departmental dose optimization program which includes automated exposure control, adjustment of the mA and/or kV according to the patient size, and/or use of an iterative reconstruction technique. Findings: Vascular: The study is diagnostic to the level of the subsegmental pulmonary arteries. Pulmonary arteries: No evidence of acute or chronic pulmonary embolism.Specifically, the pulmonary arteries are widely patent, without evidence for filling defect or vascular cutoff. The pulmonary arteries are normal in size. Thoracic aorta: Normal in size. No acute aortic pathology. Calcifications of the aortic valve. The arch vessel branching pattern is normal, and the origins of the arch branch vessels are all widely patent. Pulmonary veins: Normal configuration. Coronary arteries: Normal configuration with moderate atherosclerotic calcifications. Systemic veins: No identified thrombus. Chest: Lungs/pleura:Scattered areas of mucus plugging, bronchial wall thickening and groundglass opacities in the bilateral lower lobes and lingula favored to be inflammatory changes related to bronchiolitis. Bilateral lower lobe dependent atelectasis. No pleural effusion. No pneumothorax. Discoid atelectasis in the left lower lobe. Incidental note of right Bosniak hernia. Mediastinum/armand: No pathologically enlarged lymph nodes. Visualized thyroid gland is unremarkable. The esophagus is normal in caliber. Heart: The cardiac chambers demonstrate normal atrioventricular and ventriculoarterial concordance, and systemic and pulmonary venous return. Mild left-sided heart enlargement. No pericardial effusion. No pericardial effusion. No thrombus identified within the cardiac chambers. Axillae/subcutaneous soft tissues: No pathologically enlarged axillary lymph nodes. No suspicious subcutaneous nodules or fluid collections. Visualized upper abdomen: Unchanged 7 mm partially calcified splenic artery aneurysm. Postsurgical changes of a cholecystectomy. Bones: No aggressive osseous lesions or acute fractures. Multilevel degenerative changes in thoracic spine. Dextrocurvature of the thoracic spine. Impression: 1. No evidence for acute or chronic pulmonary embolism. 2. No evidence for acute aortic pathology. 3. Scattered areas of bronchial wall thickening, mucus plugging and ground glass opacities in the bilateral lower lobes and lingula favored to represent bronchiolitis. 4. Unchanged 7 mm partially calcified splenic artery aneurysm. Signed: Harini Mosley MD Report Verified Date/Time:02/02/2018 01:16:44 Reading Location: [address] Transitional Reading Room Procedure Note Interface, External Ris In - 02/02/2018 1:18 AM CDT FINAL REPORT Comparison: Indication: 72-year-old female with acute chest pain, hypoxia, and shortness of breath clinically suspicious for acute pulmonary embolism. Technique: Precontrast axial images were obtained at pulmonary trunk level for the purpose of monitoring subsequent IV contrast. Postcontrast axial images of the chest were obtained from above the arch level to the lower chest at maximum enhancement of the pulmonary artery. Delayed axial images of the entire chest were obtained subsequently. This exam was performed according to the departmental dose optimization program which includes automated exposure control, adjustment of the mA and/or kV according to the patient size, and/or use of an iterative reconstruction technique. Findings: Vascular: The study is diagnostic to the level of the subsegmental pulmonary arteries. Pulmonary arteries: No evidence of acute or chronic pulmonary embolism. Specifically, the pulmonary arteries are widely patent, without evidence for filling defect or vascular cutoff. The pulmonary arteries are normal in size. Thoracic aorta: Normal in size. No acute aortic pathology. Calcifications of the aortic valve. The arch vessel branching pattern is normal, and the origins of the arch branch vessels are all widely patent. Pulmonary veins: Normal configuration. Coronary arteries: Normal configuration with moderate atherosclerotic calcifications. Systemic veins: No identified thrombus. Chest: Lungs/pleura: Scattered areas of mucus plugging, bronchial wall thickening and groundglass opacities in the bilateral lower lobes and lingula favored to be inflammatory changes related to bronchiolitis. Bilateral lower lobe dependent atelectasis. No pleural effusion. No pneumothorax. Discoid atelectasis in the left lower lobe. Incidental note of right Bosniak hernia. Mediastinum/armand: No pathologically enlarged lymph nodes. Visualized thyroid gland is unremarkable. The esophagus is normal in caliber. Heart: The cardiac chambers demonstrate normal atrioventricular and ventriculoarterial concordance, and systemic and pulmonary venous return. Mild left-sided heart enlargement. No pericardial effusion. No pericardial effusion. No thrombus identified within the cardiac chambers. Axillae/subcutaneous soft tissues: No pathologically enlarged axillary lymph nodes. No suspicious subcutaneous nodules or fluid collections. Visualized upper abdomen: Unchanged 7 mm partially calcified splenic artery aneurysm. Postsurgical changes of a cholecystectomy. Bones: No aggressive osseous lesions or acute fractures. Multilevel degenerative changes in thoracic spine. Dextrocurvature of the thoracic spine. Impression: 1. No evidence for acute or chronic pulmonary embolism. 2. No evidence for acute aortic pathology. 3. Scattered areas of bronchial wall thickening, mucus plugging and ground glass opacities in the bilateral lower lobes and lingula favored to represent bronchiolitis. 4. Unchanged 7 mm partially calcified splenic artery aneurysm. Signed: Harini Mosley MD Report Verified Date/Time: 02/02/2018 01:16:44 Reading Location: [address] Transitional Reading Room Performing Organization Address [facility] Phone Number RIS * XR chest 1 view portable / bedside (02/01/2018 11:55 PM CDT) Only the most recent of 2 results within the time period is included. Specimen Narrative Performed At FINAL REPORT [facility] Chest, 1 view. History: Chest pain Comparison: Plain radiograph the chest dated 11/18/2017.. Impression: The cardiomediastinal silhouette and pulmonary vasculature are within normal limits for a portable exam. Discoid atelectasis in the left base. No lobar consolidation or pleural effusion. Dextrocurvature of the thoracic spine. No pneumothorax. Signed: Harini Mosley MD Report Verified Date/Time:02/02/2018 00:13:21 Reading Location: [address] Transitional Reading Room Procedure Note Interface, External Ris In - 02/02/2018 12:15 AM CDT FINAL REPORT Chest, 1 view. History: Chest pain Comparison: Plain radiograph the chest dated 11/18/2017.. Impression: The cardiomediastinal silhouette and pulmonary vasculature are within normal limits for a portable exam. Discoid atelectasis in the left base. No lobar consolidation or pleural effusion. Dextrocurvature of the thoracic spine. No pneumothorax. Signed: Harini Mosley MD Report Verified Date/Time: 02/02/2018 00:13:21 Reading Location: [address] Transitional Reading Room Performing Organization Address [facility] Phone Number RIS * D-dimer, quantitative (02/01/2018 11:31 PM CDT) D-Dimer, Quant 0.83 (HH) <0.50 MG/L FEU [facility] Specimen Blood Narrative Performed At Intended Use: The D-Dimer Assay can be used to aid in the diagnosis of Deep Vein [facility] Thrombosis (DVT) and Pulmonary Embolism Disease (PED). In patients with low pre-test probability, various studies concerning STA Liatest D-dimer test have reported that with a cutoff value of 0.50 MG/L FEU, the Negative Predictive Value (NPV) regarding the exclusion of thrombosis is within 95-100% range. Performing Organization Address [facility] Phone Number [facility] [phone] [place] [phone] * Phosphorus (02/01/2018 11:31 PM CDT) Phosphorus 3.1 2.5 - 4.5 mg/dL [facility] Specimen Blood Performing Organization Address [facility] Phone Number [facility] [phone] [place] [address] * Magnesium (02/01/2018 11:31 PM CDT) Only the most recent of 2 results within the time period is included. Magnesium 2.1 1.5 - 3.0 mg/dL [facility] Specimen Blood Performing Organization Address [facility] [place] [address] * Basic metabolic panel (Na, K+, Cl, CO2, Glu, Ca, BUN, Cr) (02/01/2018 11:31 PM CDT) Only the most recent of 2 results within the time period is included. Sodium 142 135 - 148 meq/L [facility] Potassium 4.0 3.5 - 5.5 meq/L [facility] Chloride 110 (H) 98 - 106 meq/L [facility] CO2 21 20 - 31 meq/L [facility] BUN 32 (H) 10 - 26 mg/dL [facility] Creatinine 0.99 0.50 - 1.20 mg/dL [facility] Glucose 98 70 - 110 mg/dL [facility] Calcium 9.2 8.5 - 10.5 mg/dL [facility] EGFR Comment: INSUFFICIENT CLINICAL mL/min/1.73 sq m [facility] DATA TO CALCULATE ESTIMATED GFR. Specimen Blood Performing Organization Address City/State/Zipcode Phone Number [facility] [address] [place] [address] * STRESS-TEST SCANNED (11/23/2017 2:12 PM CDT) Narrative Performed At * REPORT OF PROCEDURE - ENDOSCOPY URL (11/20/2017 2:50 PM CDT) Narrative Performed At * ECHOCARDIOGRAM REPORT - SCAN (11/19/2017 1:20 PM CDT) Narrative Performed At * NM myocardial perfusion SPECT, pharm(Lexiscan) (11/19/2017 9:46 AM CDT) Specimen Narrative Performed At FINAL REPORT Five Below PROCEDURE: Rest/Stress MYOCARDIAL PERFUSION SCAN with regadenosine CPT CODE:62122, 83713, 93152 INDICATION:Chest pain PROTOCOL: The patient underwent rest and post-stress imaging.10 mCi of Tc-99m sestamibi was injected intravenously at rest, and tomographic (SPECT) images were obtained. 30.2 mCi of Tc-99m sestamibi was injected intravenously during intravenous infusion of 0.4 mg of regadenosine.The patient's resting heart rate of 64 beats/minute reached a peak rate of 93 beats/minute (63% of MPHR).Blood pressure reached a maximum of 137/61 mm Hg.Other stress and monitoring data are reported separately.Gated SPECT images were obtained after stress injection. FINDINGS:Images obtained after resting and stress injections of tracer show normal tracer distribution in the LV myocardium.LV size appears size appears normal.Gated images obtained at rest after stress injection show normal LV wall motion and thickening. The QGS LVEF is 72%. IMPRESSION:Normal myocardial perfusion.Normal resting LV function. Signed: Charlene Blevins MD Report Verified Date/Time:11/20/2017 11:29:07 Reading Location: [facility] Cardiology Reading Room Procedure Note Interface, External Ris In - 11/20/2017 11:31 AM CDT FINAL REPORT PROCEDURE: Rest/Stress MYOCARDIAL PERFUSION SCAN with regadenosine CPT CODE: 93523, 01608, 29540 INDICATION: Chest pain PROTOCOL: The patient underwent rest and post-stress imaging. 10 mCi of Tc-99m sestamibi was injected intravenously at rest, and tomographic (SPECT) images were obtained. 30.2 mCi of Tc-99m sestamibi was injected intravenously during intravenous infusion of 0.4 mg of regadenosine. The patient's resting heart rate of 64 beats/minute reached a peak rate of 93 beats/minute (63% of MPHR). Blood pressure reached a maximum of 137/61 mm Hg. Other stress and monitoring data are reported separately. Gated SPECT images were obtained after stress injection. FINDINGS: Images obtained after resting and stress injections of tracer show normal tracer distribution in the LV myocardium. LV size appears size appears normal. Gated images obtained at rest after stress injection show normal LV wall motion and thickening. The QGS LVEF is 72%. IMPRESSION: Normal myocardial perfusion. Normal resting LV function. Signed: Charlene Blevins MD Report Verified Date/Time: 11/20/2017 11:29:07 Reading Location: [facility] Cardiology Reading Room Performing Organization Address City/State/Zipcode Phone Number GE RIS * 2D Echo W/Doppler(CW/PW/Color) (11/18/2017 3:35 PM CDT) Ejection Fraction [facility] ECHO [facility]ART[facility] Specimen Narrative Performed At Transthoracic Echocardiography Report (TTE) [facility] ECHO HEARTLAB Demographics [facility] Patient Name Everardo CASANOVA of Study 11/18/2017 NICHO [id number] Female Visit Number [id number] Room Number A421 Number Date of Birth1945Referring Physician MARIAH Bhagat Age72 year(s)[place] Man [facility]era [facility] Physicia n Sera Youngblood MD Procedure Type of Study TTE procedure:2DECHO W DOPPLER(CW/PW/COLOR) Indications:Acute Chest Pain/ Suspected CAD. Clinical History A FIB, HTN, HLD Height: 64 inches Weight: 66.68 kg (147.01 lbs) BSA: 1.72 m^2 BMI: 25.23 kg/m^2 BP: 132/69 mmHg Summary Normal left ventricular chamber size. Mild asymmetric septal hypertrophy. Normal overall left ventricular systolic function. No apparent segmental wall motion abnormalities. Estimated LVEF is > 60%. Mitral filling pattern suggestive of impaired left ventricle relaxation. Moderate to severe cusp calcification. Moderate aortic stenosis. Peak velocity 3.0 m/sec. Mean gradient 22 mmHg. There is mild aortic regurgitation. No evidence of pericardial effusion. The estimated RA pressure by IVC dynamics 0-5 mmHg . Estimated peak systolic PA pressure is 25-30 mmHg . Signature Findings Left Ventricle Normal left ventricular chamber size. Mild asymmetric septal hypertrophy. Normal overall left ventricular systolic function. No apparent segmental wall motion abnormalities. Estimated LVEF is > 60%. Mitral filling pattern suggestive of impaired left ventricle relaxation. Left AtriumDilated left atrium. Right VentricleNormal right ventricle structure and function. Right Atrium Normal right atrium. Aortic Valve Moderate to severe cusp calcification. Moderate aortic stenosis. Peak velocity 3.0 m/sec. Mean gradient 22 mmHg. There is mild aortic regurgitation. Mitral Valve Moderate mitral annular calcification. Trace mitral regurgitation. Tricuspid ValveNormal tricuspid valve structure and function. Estimated peak systolic PA pressure is 25-30 mmHg . Pulmonic Valve Normal pulmonic valve structure and function. PericardiumNo evidence of pericardial effusion. IVC/SVC/PA/PV/PleuralThe estimated RA pressure by IVC dynamics 0-5 mmHg . Chambers/Structures Left Atrium LA Dimension: 3.87 cmLA Area: 27.83 cm^2 LA Volume: 114.81 ml LA Vol. Index: 67 ml/m^2 Left Ventricle LVIDd: 3.6 cmLVEDV:91.31 ml LVIDs: 1.8 cmLVESV:27.32 ml LV Septum Diastolic: 1.1 cmLVEF 2D Cube: 70.1 % LV PW Diastolic: 0.9 cm LV FS: 50 % LVOT Diameter: 2 cm LVEF: 70.1 % Right Atrium RA Systolic Pressure: 5 mmHgRA Area: 16.1 cm^2 Right Ventricle RV Diast Dim.: 2.61 cm RV Systolic Pressure: 28.51 mmHg Aorta Ao Root S of Ngoc.: 2.93 cmAscending Aorta: 2.98 cm Pulmonary Vein: S Velocity: 0.79 m/s D Velocity: 0.33 m/s Doppler/Quantitative Measurements Mitral Valve MV Peak E-Wave: 0.85 m/sMV Peak A-Wave: 1.39 m/s E/A Ratio: 0.62 Peak Gradient: 2.91 mmHg Deceleration Time: 313.3 msec MV Richard. Peak: Tissue Doppler E' Septal Velocity: 0.04 m/sE/E': 16.96 E' Lateral Velocity: 0.06 m/s Aortic Valve Peak Velocity: 2.9 m/sMean Velocity: 2.19 m/s Peak Gradient: 33.55 mmHg Mean Gradient: 21.03 mmHg AV Area (continuity): 1.24 cm^2 AV VTI: 69.73 cm AR P1/2t: 414.5 msecDeceleration Time: 1429.2 msec Cusp Separation: 1.46 cm AV DVI: 0.39 LVOT Peak Velocity: 1.12 m/s Peak Gradient: 5.07 mmHg Mean Velocity: 0.85 m/s Mean Gradient: 3.21 mmHg LVOT Diameter: 2 cm LVOT VTI: 27.47 cm LVOT Area: 3.14 cm^2LVOT SV:86.26 ml Tricuspid Valve Estimated RVSP: 23.31 mmHg Estimated RAP: 5 mmHg TR Velocity: 2.42 m/s TR Gradient: 23.51 mmHg Pulmonic Valve Peak Velocity: 1.31 m/s Peak Gradient: 6.86 mmHg Estimated PASP: 28.51 mmHg Procedure Note Interface, External Ris In - 11/19/2017 12:38 PM CDT Transthoracic Echocardiography Report (TTE) Demographics Patient Name VESTA CASANOVA Date of Study 11/18/2017 NICHO Gender Female Visit Number [id number] Race Unknown Room Number A421 Number Date of 1945 Referring Physician MARIAH Bhagat Age 72 year(s) [place] Man Sera Jensen [facility] Interpreting [facility] Physician Sera Youngblood MD Procedure Type of Study TTE procedure:2DECHO W DOPPLER(CW/PW/COLOR) Indications:Acute Chest Pain/ Suspected CAD. Clinical History A FIB, HTN, HLD Height: 64 inches Weight: 66.68 kg (147.01 lbs) BSA: 1.72 m^2 BMI: 25.23 kg/m^2 BP: 132/69 mmHg Summary Normal left ventricular chamber size. Mild asymmetric septal hypertrophy. Normal overall left ventricular systolic function. No apparent segmental wall motion abnormalities. Estimated LVEF is > 60%. Mitral filling pattern suggestive of impaired left ventricle relaxation. Moderate to severe cusp calcification. Moderate aortic stenosis. Peak velocity 3.0 m/sec. Mean gradient 22 mmHg. There is mild aortic regurgitation. No evidence of pericardial effusion. The estimated RA pressure by IVC dynamics 0-5 mmHg . Estimated peak systolic PA pressure is 25-30 mmHg . Signature Findings Left Ventricle Normal left ventricular chamber size. Mild asymmetric septal hypertrophy. Normal overall left ventricular systolic function. No apparent segmental wall motion abnormalities. Estimated LVEF is > 60%. Mitral filling pattern suggestive of impaired left ventricle relaxation. Left Atrium Dilated left atrium. Right Ventricle Normal right ventricle structure and function. Right Atrium Normal right atrium. Aortic Valve Moderate to severe cusp calcification. Moderate aortic stenosis. Peak velocity 3.0 m/sec. Mean gradient 22 mmHg. There is mild aortic regurgitation. Mitral Valve Moderate mitral annular calcification. Trace mitral regurgitation. Tricuspid Valve Normal tricuspid valve structure and function. Estimated peak systolic PA pressure is 25-30 mmHg . Pulmonic Valve Normal pulmonic valve structure and function. Pericardium No evidence of pericardial effusion. IVC/SVC/PA/PV/Pleural The estimated RA pressure by IVC dynamics 0-5 mmHg . Chambers/Structures Left Atrium LA Dimension: 3.87 cm LA Area: 27.83 cm^2 LA Volume: 114.81 ml LA Vol. Index: 67 ml/m^2 Left Ventricle LVIDd: 3.6 cm LVEDV:91.31 ml LVIDs: 1.8 cm LVESV:27.32 ml LV Septum Diastolic: 1.1 cm LVEF 2D Cube: 70.1 % LV PW Diastolic: 0.9 cm LV FS: 50 % LVOT Diameter: 2 cm LVEF: 70.1 % Right Atrium RA Systolic Pressure: 5 mmHg RA Area: 16.1 cm^2 Right Ventricle RV Diast Dim.: 2.61 cm RV Systolic Pressure: 28.51 mmHg Aorta Ao Root S of Ngoc.: 2.93 cm Ascending Aorta: 2.98 cm Pulmonary Vein: S Velocity: 0.79 m/s D Velocity: 0.33 m/s Doppler/Quantitative Measurements Mitral Valve MV Peak E-Wave: 0.85 m/s MV Peak A-Wave: 1.39 m/s E/A Ratio: 0.62 Peak Gradient: 2.91 mmHg Deceleration Time: 313.3 msec MV Richard. Peak: Tissue Doppler E' Septal Velocity: 0.04 m/s E/E': 16.96 E' Lateral Velocity: 0.06 m/s Aortic Valve Peak Velocity: 2.9 m/s Mean Velocity: 2.19 m/s Peak Gradient: 33.55 mmHg Mean Gradient: 21.03 mmHg AV Area (continuity): 1.24 cm^2 AV VTI: 69.73 cm AR P1/2t: 414.5 msec Deceleration Time: 1429.2 msec Cusp Separation: 1.46 cm AV DVI: 0.39 LVOT Peak Velocity: 1.12 m/s Peak Gradient: 5.07 mmHg Mean Velocity: 0.85 m/s Mean Gradient: 3.21 mmHg LVOT Diameter: 2 cm LVOT VTI: 27.47 cm LVOT Area: 3.14 cm^2 LVOT SV:86.26 ml Tricuspid Valve Estimated RVSP: 23.31 mmHg Estimated RAP: 5 mmHg TR Velocity: 2.42 m/s TR Gradient: 23.51 mmHg Pulmonic Valve Peak Velocity: 1.31 m/s Peak Gradient: 6.86 mmHg Estimated PASP: 28.51 mmHg Performing Organization Address City/State/Zipcode Phone Number [facility] * PERIPHERAL VASCULAR REPORT - SCAN (11/18/2017 11:30 AM CDT) Narrative Performed At * Venous doppler leg, right (11/18/2017 10:39 AM CDT) Specimen Narrative Performed At FINAL REPORT [facility] Bilateral lower extremity venous ultrasound. Clinical History: Leg swelling, status post knee replacement, chest pain TECHNIQUE: Grayscale, color-flow, duplex Doppler and spectral analysis of both lower extremities was performed. Comparison Study: None Findings: There is normal flow, compression, respiratory variation and augmentation in all the deep venous structures from the inguinal to popliteal region in both lower extremities. The posterior tibial and peroneal veins were also assessed and are unremarkable. Within the right popliteal fossa is a 8.8 x 2.0 x 5.6 cm complex collection, most likely a hematoma. Impression: 1. No evidence of a DVT in either lower extremity. 2. Complex collection in the right popliteal fossa, possibly a hematoma. Clinical correlation is suggested. Signed: Lamont Olivo MD Report Verified Date/Time:11/18/2017 10:58:48 Reading Location: [facility] Diagnostic Imaging Reading Room - [place] [address] Procedure Note Interface, External Ris In - 11/18/2017 11:01 AM CDT FINAL REPORT Bilateral lower extremity venous ultrasound. Clinical History: Leg swelling, status post knee replacement, chest pain TECHNIQUE: Grayscale, color-flow, duplex Doppler and spectral analysis of both lower extremities was performed. Comparison Study: None Findings: There is normal flow, compression, respiratory variation and augmentation in all the deep venous structures from the inguinal to popliteal region in both lower extremities. The posterior tibial and peroneal veins were also assessed and are unremarkable. Within the right popliteal fossa is a 8.8 x 2.0 x 5.6 cm complex collection, most likely a hematoma. Impression: 1. No evidence of a DVT in either lower extremity. 2. Complex collection in the right popliteal fossa, possibly a hematoma. Clinical correlation is suggested. Signed: Lamont Olivo MD Report Verified Date/Time: 11/18/2017 10:58:48 Reading Location: [facility] Diagnostic Imaging Reading Room - [place] [address] Performing Organization Address City/[facility] Phone Number RIS * POC-CK-MB (11/18/2017 9:42 AM CDT) POC-CK MB 1.3Comment: TESTED AT [facility] 0.0 - 4.3 ng/mL [place] [address] Specimen Blood Performing Organization Address [facility] Phone Number [address] * POC-TROPONIN I (11/18/2017 9:31 AM CDT) POC-Troponin I 0.01Comment: TESTED AT [facility] 0.00 - 0.10 ng/mL [address] [facility] [address] Specimen Blood Performing Organization Address [facility] Phone Number [address] * B-type Natriuretic Factor (BNP) (11/18/2017 9:23 AM CDT) BNP 115 (H) 0 - 100 pg/mL [facility] Specimen Blood Performing Organization Address [facility] Phone Number [address] Street[address]oudini, Inc[address] * Creatine Kinase (CK) (11/18/2017 9:23 AM CDT) Total CK 38 25 - 235 U/L [facility] Specimen Blood Performing Organization Address [facility] Phone Number KATHERINE OWENST. LUKE'S JEROMEDonovan [address] [place] [address] [facility] * Hepatic function panel (11/18/2017 9:23 AM CDT) Protein, Total 7.3 6.0 - 8.5 gm/dL [facility] Albumin 4.2 3.5 - 5.0 g/dL [facility] Total Bilirubin 0.4 0.1 - 1.2 mg/dL [facility] Bilirubin, Direct 0.2 0.0 - 0.4 mg/dL [facility] Alkaline Phosphatase 121 (H) 30 - 115 U/L [facility] AST 12 5 - 40 U/L [facility] ALT 24 5 - 50 U/L [facility] Specimen Blood Performing Organization Address [facility]/Zipcode Phone Number KATHERINE OWENRey [address] [place] [address] [facility] after 10/21/2017 Insurance Payer Benefit Subscriber ID Type Phone Address Plan / Group [employer] CIGNA xxxxxxxxxxx [facility] [employer]ALTH[employer]I Contracted NG ALL MEDICAID MEDICAID xxxxxxxxx Medicaid OF [place] Advance Directives For more information, please contact: [facility] [address] [place] [address] Date Inactivated Comments Code Status Date Activated 02/03/2018 12:45 PM Full Code 02/02/2018 2:48 AM This code status was determined by: Patient 11/21/2017 4:13 PM Full Code 11/18/2017 12:27 PM This code status was determined by: Patient
--- OUTSIDE RECORDS SUMMARY | 2018-10-22 07:48 | XMS REPORT | Summary of Care ---
Author Author [facility] [place] Organization [facility] [place] Address Unknown Phone Unavailable Encounter DEION Das(FIN) [id number] Date(s): 12/25/17 - 12/25/17 [facility] [place] [address] [place] [address] 7 [phone] Encounter Diagnosis Other hemorrhoids (Final) - 12/31/17 Cyst of pancreas (Final) - Cyst of kidney, acquired (Final) - Acquired absence of other specified parts of digestive tract (Final) - Discharge Disposition: Home or Self Care Attending Physician: Serena Flores MD Referring Physician: Serena Flores MD Vital Signs No data available for this section Problem List Condition Effective Dates Status Health Status Informant Anemia(Confirmed) Active Glaucoma(Confirmed) Active HTN(Confirmed) Active 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(Confirme d) Kidney 2009 - 2009 Resolved stones(Confirmed)1 Leukocytosis(Confirm Active ed) Nephrostomy with 04/04/13 Active tube drainage(Confirmed) UTI - Urinary tract Active infection(Confirmed) 13yrs ago Allergies, Adverse Reactions, Alerts Substance Reaction Severity Status NKDA Active Medications No data available for this section Results No data available for this section Immunizations No data available for this section Procedures Procedure Date Related Diagnosis Body Site Status Cholecystectomy 2009 Completed Nephrostomy Completed Placement of stent Completed Social History Social History Type Response Substance Abuse Previous Treatment: None.1 Sexual Sexually active: No. Exercise Exercise duration: 2. Exercise frequency: 3-4 times/week. Self assessment: Good condition. Exercise type: Walking. 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 Alcohol Last use: none. Smoking Status Never smoker; Exposure to Tobacco Smoke None; Cigarette Smoking Last 365 Days No; Reg Smoking Cessation Counseling No entered on: 04/03/13 1none Assessment and Plan No data available for this section
--- OUTSIDE RECORDS SUMMARY | 2018-10-22 07:48 | XMS REPORT | Summary of Care ---
Author Author [facility] Address Unknown Phone Unavailable Encounter HQ Rickr_stanley(FIN) [id number] Date(s): 06/24/17 - 07/23/17 Replaced by [facility] Encounter Diagnosis Muscle weakness (generalized) (Final) - 07/29/17 Pain in right knee (Final) - Stiffness of right knee, not elsewhere classified (Final) - Difficulty in walking, not elsewhere classified (Final) - Discharge Disposition: Home or Self Care Attending Physician: Physician, Non Associated MD Vital Signs No data available for [...] Date Related Diagnosis Body Site Status Cholecystectomy 2008 Completed Nephrostomy Completed Placement of stent Completed Social History Social History Type Response Substance Abuse Previous Treatment: None.1 Sexual Sexually active: No. Exercise Exercise duration: 2. Exercise frequency: 3-4 times/week. Self assessment: Good condition. Exercise type: Walking. 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 Alcohol Last use: none. Smoking Status Never smoker; Exposure to Tobacco Smoke None; Cigarette Smoking Last 365 Days No; Reg Smoking Cessation Counseling No entered on: 04/03/13 1none Assessment and Plan No data available for this section
--- OUTSIDE RECORDS SUMMARY | 2018-10-22 07:49 | XMS REPORT ---
Author Author S Mariah Lazaro Organization Unknown Address [address] [facility]. Phone Unavailable Care Team Providers Care Route Inspector Name Role Phone Dr. SAMIR MONTGOMERY Unavailable Unavailable Advance directives Directive Description Status Cardiopulmonary Resuscitation FULL Current and Verified Allergies Type Substance Reaction Status drug allergy No Known Drug Allergy Active Problems Problem Effective Dates Problem Status A41.9 SEPSIS, UNSPECIFIED ORGANISM 06/03/2017 Active N39.0 URINARY TRACT INFECTION, SITE NOT SPECIFIED 06/03/2017 Active A04.8 OTHER SPECIFIED BACTERIAL INTESTINAL INFECTIONS 06/03/2017 Active I10 ESSENTIAL (PRIMARY) HYPERTENSION 06/03/2017 Active E78.5 HYPERLIPIDEMIA, UNSPECIFIED 06/03/2017 Active K21.9 GASTRO-ESOPHAGEAL REFLUX DISEASE WITHOUT ESOPHAGITIS 06/03/2017 Active I48.91 UNSPECIFIED ATRIAL FIBRILLATION 06/03/2017 Active N13.30 UNSPECIFIED HYDRONEPHROSIS 06/03/2017 Active K52.9 NONINFECTIVE GASTROENTERITIS AND COLITIS, UNSPECIFIED 06/03/2017 Active A04.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, RECURRENT 06/03/2017 Active Medications Medication Dose Form Route Sig Text Dates Status Trusopt Solution 2 % 1 dose Solution Ophthalmic 1 DROP(S) IN EACH EYE 2 TIMES A DAY FOR GLAUCOMA 06/04/2017 9:00:00 Metoprolol Succinate ER Tablet Extended Release 24 Hour 25 MG 1 tablet Tablet Extended Release 24 Hour Oral 1 TAB(S) BY MOUTH EVERY 12 HOURS HOLD FOR BP<110/60 HR<60 06/03/2017 21:00:00 Latanoprost Solution 0.005 % 1 drop Solution Ophthalmic 1 DROP(S) IN EACH EYE AT BEDTIME 06/03/2017 21:00:00 Tylenol Tablet 325 MG 2 tablet Tablet Oral Give 2 tablet by mouth every 6 hours as needed for pain NTE >4gm APAP daily. 2 tyse=[id number] 06/03/2017 20:30:00 Simvastatin Tablet 20 MG 1 tablet Tablet Oral 1 TAB(S) BY MOUTH AT BEDTIME 06/04/2017 21:00:00 Oscal 500/200 D-3 Tablet 500-200 MG-UNIT 1 tablet Tablet Oral Give 1 tablet by mouth three times a day for supplement 06/04/2017 9:00:00 Amiodarone HCl Tablet 200 MG 1 tablet Tablet Oral 1 TAB(S) BY MOUTH DAILY 06/04/2017 9:00:00 Xarelto Tablet 10 MG 1 tablet Tablet Oral 1 TAB(S) BY MOUTH DAILY 06/04/2017 9:00:00 Venelex Ointment Ointment External Apply to Buttocks/Sacrum topically every day shift for Wound Healing and Monitor for any Change in Condition 06/05/2017 7:00:00 Pepcid Tablet 20 MG 1 tablet Tablet Oral Give 1 tablet by mouth one time a day related to GASTRO-ESOPHAGEAL REFLUX DISEASE WITHOUT ESOPHAGITIS (K21.9) 06/14/2017 7:00:00 Zofran Tablet 4 MG 1 tablet Tablet Oral Give 1 tablet by mouth every 6 hours as needed for Nausea and Vomiting Administer 4mg tab via PO OR administer 4mg solution via IM Q6H PRN nausea and/or vomiting. 06/13/2017 17:30:00 Zofran Solution 4 mg Solution Injection Inject 4 mg intramuscularly every 6 hours as needed for Nausea and Vomiting Administer 4mg tab via PO OR administer 4mg solution via IM Q6H PRN nausea and/or vomiting. 06/13/2017 17:30:00 Tuberculin PPD Solution 0.1 ml Solution Intradermal Inject 0.1 ml intradermally one time only for Prophylaxis for 1 Day Adm within first 24 hours of admission. Repeat yearly. 06/04/2017 8:55:00 06/05/2017 8:54:00 Completed MetroNIDAZOLE in NaCl Solution 500-0.79 MG/100ML-% 100 ml Solution Intravenous 500 MG INTRAVENOUS EVERY 12 HOURS INFUSE OVER 30 MINUTES* (200ML/HR) 06/04/2017 8:00:00 06/05/2017 13:09:00 Aborted Ciprofloxacin in D5W Solution 400 MG/200ML 200 ml Solution Intravenous 400 MG INTRAVENOUS EVERY 12 HOURS FOR 2 DAYS INFUSE OVER 1HR (400MG/HR) 06/03/2017 21:00:00 06/05/2017 13:09:00 Aborted Results No Known Results Vital signs Description Observation Date INTRAVASCULAR SYSTOLIC 124.0 mm[Hg] 06/03/2017 19:30:00 INTRAVASCULAR DIASTOLIC 78.0 mm[Hg] 06/03/2017 19:30:00 BODY TEMPERATURE 97.5 [degF] 06/03/2017 19:30:00 RESPIRATION RATE 18.0 /min 06/03/2017 19:30:00 HEART BEAT 79.0 {beats}/min 06/03/2017 19:30:00 OXYGEN SATURATION 98.0 % 06/03/2017 19:30:00 RESPIRATION RATE 18.0 /min 06/04/2017 3:40:51 INTRAVASCULAR SYSTOLIC 114.0 mm[Hg] 06/04/2017 3:40:51 INTRAVASCULAR DIASTOLIC 62.0 mm[Hg] 06/04/2017 3:40:51 BODY TEMPERATURE 98.1 [degF] 06/04/2017 3:40:51 HEART BEAT 102.0 {beats}/min 06/04/2017 3:40:51 BODY WEIGHT (MEASURED) 158.2 [lb_av] 06/04/2017 6:13:00 BODY HEIGHT (MEASURED) 64.0 [in_i] 06/04/2017 6:13:00 INTRAVASCULAR SYSTOLIC 121.0 mm[Hg] 06/04/2017 12:35:03 INTRAVASCULAR DIASTOLIC 63.0 mm[Hg] 06/04/2017 12:35:03 HEART BEAT 98.0 {beats}/min 06/04/2017 12:35:03 INTRAVASCULAR SYSTOLIC 129.0 mm[Hg] 06/04/2017 21:01:33 INTRAVASCULAR DIASTOLIC 74.0 mm[Hg] 06/04/2017 21:01:33 HEART BEAT 70.0 {beats}/min 06/04/2017 21:01:33 RESPIRATION RATE 19.0 /min 06/04/2017 21:20:15 RESPIRATION RATE 18.0 /min 06/05/2017 9:04:21 INTRAVASCULAR SYSTOLIC 125.0 mm[Hg] 06/05/2017 9:04:21 INTRAVASCULAR DIASTOLIC 62.0 mm[Hg] 06/05/2017 9:04:21 BODY TEMPERATURE 97.9 [degF] 06/05/2017 9:04:21 HEART BEAT 97.0 {beats}/min 06/05/2017 9:04:21 RESPIRATION RATE 18.0 /min 06/05/2017 10:05:26 BODY TEMPERATURE 98.1 [degF] 06/05/2017 10:05:26 INTRAVASCULAR SYSTOLIC 128.0 mm[Hg] 06/05/2017 11:25:07 INTRAVASCULAR DIASTOLIC 78.0 mm[Hg] 06/05/2017 11:25:07 HEART BEAT 90.0 {beats}/min 06/05/2017 11:25:07 INTRAVASCULAR SYSTOLIC 131.0 mm[Hg] 06/05/2017 20:34:45 INTRAVASCULAR DIASTOLIC 63.0 mm[Hg] 06/05/2017 20:34:45 HEART BEAT 74.0 {beats}/min 06/05/2017 20:34:45 RESPIRATION RATE 18.0 /min 06/06/2017 4:37:13 INTRAVASCULAR SYSTOLIC 103.0 mm[Hg] 06/06/2017 4:37:13 INTRAVASCULAR DIASTOLIC 55.0 mm[Hg] 06/06/2017 4:37:13 BODY TEMPERATURE 97.3 [degF] 06/06/2017 4:37:13 HEART BEAT 69.0 {beats}/min 06/06/2017 4:37:13 INTRAVASCULAR SYSTOLIC 118.0 mm[Hg] 06/06/2017 8:42:48 INTRAVASCULAR DIASTOLIC 65.0 mm[Hg] 06/06/2017 8:42:48 HEART BEAT 70.0 {beats}/min 06/06/2017 8:42:48 RESPIRATION RATE 20.0 /min 06/06/2017 14:01:00 BODY TEMPERATURE 97.6 [degF] 06/06/2017 14:01:00 INTRAVASCULAR SYSTOLIC 124.0 mm[Hg] 06/06/2017 21:19:31 INTRAVASCULAR DIASTOLIC 68.0 mm[Hg] 06/06/2017 21:19:31 HEART BEAT 74.0 {beats}/min 06/06/2017 21:19:31 RESPIRATION RATE 20.0 /min 06/06/2017 23:56:17 INTRAVASCULAR SYSTOLIC 124.0 mm[Hg] 06/06/2017 23:56:17 INTRAVASCULAR DIASTOLIC 66.0 mm[Hg] 06/06/2017 23:56:17 BODY TEMPERATURE 97.8 [degF] 06/06/2017 23:56:17 HEART BEAT 74.0 {beats}/min 06/06/2017 23:56:17 INTRAVASCULAR SYSTOLIC 139.0 mm[Hg] 06/07/2017 8:12:32 INTRAVASCULAR DIASTOLIC 72.0 mm[Hg] 06/07/2017 8:12:32 HEART BEAT 72.0 {beats}/min 06/07/2017 8:12:32 RESPIRATION RATE 20.0 /min 06/07/2017 9:54:19 BODY TEMPERATURE 97.4 [degF] 06/07/2017 9:54:19 INTRAVASCULAR SYSTOLIC 124.0 mm[Hg] 06/07/2017 21:36:58 INTRAVASCULAR DIASTOLIC 67.0 mm[Hg] 06/07/2017 21:36:58 HEART BEAT 88.0 {beats}/min 06/07/2017 21:36:58 BODY TEMPERATURE 97.4 [degF] 06/08/2017 0:21:00 HEART BEAT 60.0 {beats}/min 06/08/2017 0:21:00 RESPIRATION RATE 18.0 /min 06/08/2017 0:21:00 INTRAVASCULAR SYSTOLIC 113.0 mm[Hg] 06/08/2017 0:21:00 INTRAVASCULAR DIASTOLIC 56.0 mm[Hg] 06/08/2017 0:21:00 RESPIRATION RATE 18.0 /min 06/08/2017 0:48:19 INTRAVASCULAR SYSTOLIC 118.0 mm[Hg] 06/08/2017 0:48:19 INTRAVASCULAR DIASTOLIC 60.0 mm[Hg] 06/08/2017 0:48:19 BODY TEMPERATURE 97.6 [degF] 06/08/2017 0:48:19 HEART BEAT 62.0 {beats}/min 06/08/2017 0:48:19 RESPIRATION RATE 18.0 /min 06/08/2017 1:53:02 INTRAVASCULAR SYSTOLIC 113.0 mm[Hg] 06/08/2017 1:53:02 INTRAVASCULAR DIASTOLIC 56.0 mm[Hg] 06/08/2017 1:53:02 BODY TEMPERATURE 97.4 [degF] 06/08/2017 1:53:02 HEART BEAT 60.0 {beats}/min 06/08/2017 1:53:02 INTRAVASCULAR SYSTOLIC 118.0 mm[Hg] 06/08/2017 9:46:50 INTRAVASCULAR DIASTOLIC 65.0 mm[Hg] 06/08/2017 9:46:50 HEART BEAT 74.0 {beats}/min 06/08/2017 9:46:50 RESPIRATION RATE 19.0 /min 06/08/2017 12:52:38 BODY TEMPERATURE 97.8 [degF] 06/08/2017 12:52:38 INTRAVASCULAR SYSTOLIC 156.0 mm[Hg] 06/08/2017 20:47:16 INTRAVASCULAR DIASTOLIC 72.0 mm[Hg] 06/08/2017 20:47:16 HEART BEAT 65.0 {beats}/min 06/08/2017 20:47:16 RESPIRATION RATE 18.0 /min 06/08/2017 20:55:18 INTRAVASCULAR SYSTOLIC 124.0 mm[Hg] 06/08/2017 20:55:18 INTRAVASCULAR DIASTOLIC 61.0 mm[Hg] 06/08/2017 20:55:18 BODY TEMPERATURE 98.3 [degF] 06/08/2017 20:55:18 HEART BEAT 67.0 {beats}/min 06/08/2017 20:55:18 RESPIRATION RATE 18.0 /min 06/09/2017 2:57:50 INTRAVASCULAR SYSTOLIC 116.0 mm[Hg] 06/09/2017 2:57:50 INTRAVASCULAR DIASTOLIC 60.0 mm[Hg] 06/09/2017 2:57:50 BODY TEMPERATURE 98.0 [degF] 06/09/2017 2:57:50 HEART BEAT 60.0 {beats}/min 06/09/2017 2:57:50 INTRAVASCULAR SYSTOLIC 116.0 mm[Hg] 06/09/2017 11:40:04 INTRAVASCULAR DIASTOLIC 63.0 mm[Hg] 06/09/2017 11:40:04 HEART BEAT 66.0 {beats}/min 06/09/2017 11:40:04 INTRAVASCULAR SYSTOLIC 121.0 mm[Hg] 06/09/2017 20:46:31 INTRAVASCULAR DIASTOLIC 61.0 mm[Hg] 06/09/2017 20:46:31 HEART BEAT 64.0 {beats}/min 06/09/2017 20:46:31 RESPIRATION RATE 18.0 /min 06/09/2017 22:09:41 INTRAVASCULAR SYSTOLIC 130.0 mm[Hg] 06/09/2017 22:09:41 INTRAVASCULAR DIASTOLIC 64.0 mm[Hg] 06/09/2017 22:09:41 BODY TEMPERATURE 98.1 [degF] 06/09/2017 22:09:41 HEART BEAT 58.0 {beats}/min 06/09/2017 22:09:41 RESPIRATION RATE 18.0 /min 06/10/2017 1:55:46 INTRAVASCULAR SYSTOLIC 165.0 mm[Hg] 06/10/2017 1:55:46 INTRAVASCULAR DIASTOLIC 73.0 mm[Hg] 06/10/2017 1:55:46 BODY TEMPERATURE 97.3 [degF] 06/10/2017 1:55:46 HEART BEAT 60.0 {beats}/min 06/10/2017 1:55:46 INTRAVASCULAR SYSTOLIC 127.0 mm[Hg] 06/10/2017 8:18:46 INTRAVASCULAR DIASTOLIC 67.0 mm[Hg] 06/10/2017 8:18:46 HEART BEAT 55.0 {beats}/min 06/10/2017 8:18:46 RESPIRATION RATE 18.0 /min 06/10/2017 8:27:31 INTRAVASCULAR SYSTOLIC 127.0 mm[Hg] 06/10/2017 8:27:31 INTRAVASCULAR DIASTOLIC 67.0 mm[Hg] 06/10/2017 8:27:31 HEART BEAT 55.0 {beats}/min 06/10/2017 8:27:31 BODY WEIGHT (MEASURED) 159.2 [lb_av] 06/10/2017 10:18:00 RESPIRATION RATE 18.0 /min 06/10/2017 18:37:25 INTRAVASCULAR SYSTOLIC 158.0 mm[Hg] 06/10/2017 18:37:25 INTRAVASCULAR DIASTOLIC 85.0 mm[Hg] 06/10/2017 18:37:25 BODY TEMPERATURE 75.0 [degF] 06/10/2017 18:37:25 HEART BEAT 75.0 {beats}/min 06/10/2017 18:37:25 INTRAVASCULAR SYSTOLIC 135.0 mm[Hg] 06/10/2017 20:44:33 INTRAVASCULAR DIASTOLIC 60.0 mm[Hg] 06/10/2017 20:44:33 HEART BEAT 81.0 {beats}/min 06/10/2017 20:44:33 RESPIRATION RATE 18.0 /min 06/11/2017 6:17:42 INTRAVASCULAR SYSTOLIC 132.0 mm[Hg] 06/11/2017 6:17:42 INTRAVASCULAR DIASTOLIC 83.0 mm[Hg] 06/11/2017 6:17:42 HEART BEAT 66.0 {beats}/min 06/11/2017 6:17:42 INTRAVASCULAR SYSTOLIC 123.0 mm[Hg] 06/11/2017 8:06:37 INTRAVASCULAR DIASTOLIC 85.0 mm[Hg] 06/11/2017 8:06:37 HEART BEAT 76.0 {beats}/min 06/11/2017 8:06:37 RESPIRATION RATE 18.0 /min 06/11/2017 18:20:57 INTRAVASCULAR SYSTOLIC 108.0 mm[Hg] 06/11/2017 18:20:57 INTRAVASCULAR DIASTOLIC 52.0 mm[Hg] 06/11/2017 18:20:57 BODY TEMPERATURE 98.8 [degF] 06/11/2017 18:20:57 HEART BEAT 71.0 {beats}/min 06/11/2017 18:20:57 INTRAVASCULAR SYSTOLIC 119.0 mm[Hg] 06/11/2017 21:00:11 INTRAVASCULAR DIASTOLIC 62.0 mm[Hg] 06/11/2017 21:00:11 HEART BEAT 89.0 {beats}/min 06/11/2017 21:00:11 RESPIRATION RATE 18.0 /min 06/12/2017 2:49:49 INTRAVASCULAR SYSTOLIC 104.0 mm[Hg] 06/12/2017 2:49:49 INTRAVASCULAR DIASTOLIC 46.0 mm[Hg] 06/12/2017 2:49:49 BODY TEMPERATURE 98.3 [degF] 06/12/2017 2:49:49 HEART BEAT 76.0 {beats}/min 06/12/2017 2:49:49 RESPIRATION RATE 18.0 /min 06/12/2017 10:43:00 INTRAVASCULAR SYSTOLIC 140.0 mm[Hg] 06/12/2017 10:43:00 INTRAVASCULAR DIASTOLIC 67.0 mm[Hg] 06/12/2017 10:43:00 BODY TEMPERATURE 98.1 [degF] 06/12/2017 10:43:00 HEART BEAT 76.0 {beats}/min 06/12/2017 10:43:00 INTRAVASCULAR SYSTOLIC 140.0 mm[Hg] 06/12/2017 10:43:46 INTRAVASCULAR DIASTOLIC 67.0 mm[Hg] 06/12/2017 10:43:46 HEART BEAT 76.0 {beats}/min 06/12/2017 10:43:46 INTRAVASCULAR SYSTOLIC 116.0 mm[Hg] 06/12/2017 20:59:50 INTRAVASCULAR DIASTOLIC 51.0 mm[Hg] 06/12/2017 20:59:50 HEART BEAT 73.0 {beats}/min 06/12/2017 20:59:50 RESPIRATION RATE 18.0 /min 06/12/2017 21:47:51 INTRAVASCULAR SYSTOLIC 107.0 mm[Hg] 06/12/2017 21:47:51 INTRAVASCULAR DIASTOLIC 56.0 mm[Hg] 06/12/2017 21:47:51 BODY TEMPERATURE 98.4 [degF] 06/12/2017 21:47:51 HEART BEAT 73.0 {beats}/min 06/12/2017 21:47:51 RESPIRATION RATE 18.0 /min 06/13/2017 4:01:24 INTRAVASCULAR SYSTOLIC 136.0 mm[Hg] 06/13/2017 4:01:24 INTRAVASCULAR DIASTOLIC 60.0 mm[Hg] 06/13/2017 4:01:24 BODY TEMPERATURE 98.6 [degF] 06/13/2017 4:01:24 HEART BEAT 75.0 {beats}/min 06/13/2017 4:01:24 INTRAVASCULAR SYSTOLIC 130.0 mm[Hg] 06/13/2017 10:20:19 INTRAVASCULAR DIASTOLIC 70.0 mm[Hg] 06/13/2017 10:20:19 HEART BEAT 78.0 {beats}/min 06/13/2017 10:20:19 RESPIRATION RATE 18.0 /min 06/13/2017 10:32:56 BODY TEMPERATURE 98.3 [degF] 06/13/2017 10:32:56 OXYGEN SATURATION 97.0 % 06/13/2017 10:33:00 RESPIRATION RATE 21.0 /min 06/13/2017 16:37:28 INTRAVASCULAR SYSTOLIC 139.0 mm[Hg] 06/13/2017 16:37:28 INTRAVASCULAR DIASTOLIC 82.0 mm[Hg] 06/13/2017 16:37:28 BODY TEMPERATURE 97.9 [degF] 06/13/2017 16:37:28 HEART BEAT 71.0 {beats}/min 06/13/2017 16:37:28 INTRAVASCULAR SYSTOLIC 138.0 mm[Hg] 06/13/2017 20:58:43 INTRAVASCULAR DIASTOLIC 60.0 mm[Hg] 06/13/2017 20:58:43 HEART BEAT 74.0 {beats}/min 06/13/2017 20:58:43 INTRAVASCULAR SYSTOLIC 163.0 mm[Hg] 06/14/2017 9:05:04 INTRAVASCULAR DIASTOLIC 88.0 mm[Hg] 06/14/2017 9:05:04 HEART BEAT 64.0 {beats}/min 06/14/2017 9:05:04 RESPIRATION RATE 20.0 /min 06/14/2017 9:52:33 INTRAVASCULAR SYSTOLIC 162.0 mm[Hg] 06/14/2017 9:52:33 INTRAVASCULAR DIASTOLIC 88.0 mm[Hg] 06/14/2017 9:52:33 BODY TEMPERATURE 98.2 [degF] 06/14/2017 9:52:33 HEART BEAT 64.0 {beats}/min 06/14/2017 9:52:33 RESPIRATION RATE 20.0 /min 06/14/2017 16:57:15 INTRAVASCULAR SYSTOLIC 162.0 mm[Hg] 06/14/2017 16:57:15 INTRAVASCULAR DIASTOLIC 86.0 mm[Hg] 06/14/2017 16:57:15 BODY TEMPERATURE 98.4 [degF] 06/14/2017 16:57:15 HEART BEAT 66.0 {beats}/min 06/14/2017 16:57:15 INTRAVASCULAR SYSTOLIC 126.0 mm[Hg] 06/14/2017 20:30:39 INTRAVASCULAR DIASTOLIC 55.0 mm[Hg] 06/14/2017 20:30:39 HEART BEAT 66.0 {beats}/min 06/14/2017 20:30:39 RESPIRATION RATE 18.0 /min 06/15/2017 2:13:41 INTRAVASCULAR SYSTOLIC 115.0 mm[Hg] 06/15/2017 2:13:41 INTRAVASCULAR DIASTOLIC 57.0 mm[Hg] 06/15/2017 2:13:41 BODY TEMPERATURE 97.2 [degF] 06/15/2017 2:13:41 HEART BEAT 71.0 {beats}/min 06/15/2017 2:13:41 Immunizations Vaccine Date Status Reason Influenza, seasonal, injectable 06/04/2017 Refused Resident Refused pneumococcal polysaccharide vaccine, 23 valent 06/04/2017 Refused Resident Refused tuberculin skin test; purified protein derivative solution, intradermal 06/04/2017 14:15:00 Completed Social History Smoking Status Start Date End Date Unknown if ever smoked 06/15/2017 15:21:50
[2018-10-22 16:39] VITALS: BP 117/55
--- NOTE | 2018-10-22 20:25 | Consultation ---
DATE OF CONSULTATION: 10/22/2018 Cardiology Consultation. INDICATION: Chest pain. HISTORY OF PRESENT ILLNESS: Ms. Campos is a 73-year-old female with a history of atrial fibrillation, who few minutes ago recovered from extracorporeal shock wave lithotripsy for renal stones. Postoperatively, she had some chest pain. Chest pain is improved after she burped. No history of coronary artery disease. Recent evaluation by Dr. Khoi Lyons in [place] without any evidence of coronary artery disease or congestive heart failure. PAST MEDICAL HISTORY: Listed above. SOCIAL HISTORY: The patient does not smoke or drink. She is accompanied by her son. REVIEW OF SYSTEMS: Negative except as dictated in the history of present illness. PHYSICAL EXAMINATION: VITAL SIGNS: Afebrile, heart rate 70, blood pressure 128/70. CARDIOVASCULAR: Regular rhythm. Systolic murmur. No gallops. LUNGS: Clear to auscultation bilaterally. ABDOMEN: Mildly distended and tender. EXTREMITIES: No pedal edema. RADIOGRAPHS: Electrocardiogram shows sinus rhythm with no other abnormalities. ASSESSMENT: Atypical chest pain in the setting of recent lithotripsy. RECOMMENDATIONS: Ms. Campos's pain is resolving. Electrocardiogram is normal. We will check one set of cardiac enzymes as well as an echocardiogram. If these are normal, she may be discharged with followup with her primary social secretary. She should be observed in the hospital on telemetry until the above-mentioned tests are completed. I thank Dr. Carbajal for this consultation. MD DENAE Schulte/CANDICE /[id number]
[2018-10-22 22:55] LABS: CREATINE KINASE 92 IU/L (29-168)
--- NOTE | 2018-11-05 03:20 | Operative Report ---
DATE OF PROCEDURE: 10/22/2018 SURGEON: Rashard Arias MD PREOPERATIVE DIAGNOSES: 1. Left nephrolithiasis. 2. Urinary tract infection. POSTOPERATIVE DIAGNOSES: 1. Left nephrolithiasis. 2. Urinary tract infection. 3. Atrophic vaginitis. 4. Mixed type urinary incontinence. OPERATIONS PERFORMED: Note: These were all staged procedures as part of multi-stage and multistep process in managing the patient's urolithiasis: 1. Left-sided extracorporeal shockwave lithotripsy (separate procedure was performed for diagnosis of the left nephrolithiasis). 2. Cystourethroscopy with bilateral ureteral catheterization and retrograde ureteropyelography (separate procedure performed for the urinary tract infections). 3. Interpretation of retrograde pyelography. 4. Supervision of fluoroscopy, no radiologist present. 5. Pelvic examination under anesthesia. ANESTHESIA: General. COMPLICATIONS: None. CLINICAL SUMMARY: Vesta Campos is a complicated 73-year-old woman with a longstanding urological history and recurrent stone history. She is brought for the above procedures. She is aware of the risks of bleeding, infection, injury to adjacent structures, need for additional procedures and elected to proceed. OPERATIVE PROCEDURE IN DETAIL: Informed consent was verified. Vesta Campos was properly identified, taken to the operating room, placed on the lithotripsy table in supine position. Anesthesia was uneventfully begun. The patient's left nephrolithiasis was localized with biplanar fluoroscopy. A total of 3000 shocks were distributed between the 6 mm left renal pelvis stone and a 6 mm lower calyceal stone on the left-hand side. Excellent communication was noted. The patient was then carefully gently repositioned in the dorsal lithotomy position with all pressure points well padded. Her genitalia were prepared and draped in sterile fashion. The cystoscope sheath with obturator in place was inserted into the patient's urethra and the bladder was drained. Panendoscopy of urinary bladder revealed no suspicious mucosal lesions, no tumors, no stones, and no diverticula. Normally positioned and configured ureteral orifices were identified. The ureteral catheter was used to cannulate each ureter and retrograde ureteropyelogram was performed. Interpretation of retrograde ureteropyelography: Contrast was instilled in retrograde fashion bilaterally. left ureteropelvic junction obstruction. Nevertheless, unobstructed drainage was observed fluoroscopically and we felt there was no need to leave the stent at the present time. The patient's bladder was drained. Re-examination of the bladder revealed significant trabeculation without tumors or suspicious lesions. The pelvic examination under anesthesia revealed severe atrophic vaginitis. No abnormal palpable pelvic masses could be appreciated. No obvious mucosal lesions. The patient was then uneventfully reversed from anesthesia and taken to recovery room in stable condition. There were no complications at end of the procedure. She tolerated the procedure well. Explicit postoperative instructions were given. Rashard MD CALDERON Arias/CANDICE /[id number]
== END | disposition home or self-care (01) ==
LOC: OR 07:36
PROVIDERS: ATTEND Urology
DX: N20.0 Calculus of kidney (principal); N39.0 Urinary tract infection, site not specified; N95.2 Postmenopausal atrophic vaginitis; N39.46 Mixed incontinence; N32.89 Other specified disorders of bladder; R07.89 Other chest pain; I48.91 Unspecified atrial fibrillation; I35.8 Other nonrheumatic aortic valve disorders; I12.9 Hypertensive chronic kidney disease with stage 1 through stage 4 chronic kidney disease, or unspecified chronic kidney disease; N18.9 Chronic kidney disease, unspecified; H40.9 Unspecified glaucoma; Z01.810 Encounter for preprocedural cardiovascular examination; Z01.812 Encounter for preprocedural laboratory examination; Z01.818 Encounter for other preprocedural examination; Z79.82 Long term (current) use of aspirin
CPT/HCPCS: 36415 ×2; 50590; 71046; 74018; 82550; 82553; 84484; 85025; 93005 ×2; 93306; C1758; J0696; J1100; J2001; J2405; J2704